=== PATIENT | female | born 1970 | race Caucasian/White ===

== ENCOUNTER 2020-01-31 11:08 | Outpatient (REF) | payer MEDICAID, SELFPAY ==
[2020-01-31 11:58] LABS: Abs Immature Grans 0.08 k/cumm (0.0-0.09); Absolute Basophil Count 0.02 k/cumm (0.0-0.2); Absolute Eosinophil Count 0.05 k/cumm (0.0-0.7); Absolute Lymphocyte Count 1.48 k/cumm (1.2-3.4); Absolute Monocyte Count 0.56 k/cumm (0.11-0.7); Absolute Neutrophil Count 7.74 k/cumm (1.2-6.7); Basophils % 0.2; Eosinophils % 0.5; HCT 45.7 % (36.0-46.0); HGB 15.2 g/dL (12.0-15.5); Immature Grans % 0.8 %; Lymphocytes % 14.9; Mean Corp. HGB Concentration 33.3 g/dL (32.0-36.0); Mean Corpuscular Hemoglobin 31.5 pg (27.0-33.0); Mean Corpuscular Volume 94.6 fL (80-95); Mean Platelet Volume 10.8 fL (8.0-11.0); Monocytes % 5.6; Platelet Count 182 x1000/uL (130-400); RBC 4.83 m/cumm (4.00-5.20); RBC Distribution Width 12.2 % (11.7-14.6); White Blood Cell Count 9.93 k/cumm (4.4-10.8)
== END 2020-01-31 11:28 ==
LOC: LBN 11:08
PROVIDERS: PCP Internal Medicine; Visit Provider Internal Medicine Medical Oncology
DX: C34.91 Malignant neoplasm of unspecified part of right bronchus or lung (principal)
CPT/HCPCS: 85025

== ENCOUNTER 2020-03-13 10:00 | Outpatient (RCR) | payer MEDICAID, SELFPAY ==
[2020-02-21 11:49] LABS: Abs Immature Grans 0.11 k/cumm (0.0-0.09); Absolute Basophil Count 0.02 k/cumm (0.0-0.2); Absolute Eosinophil Count 0.04 k/cumm (0.0-0.7); Absolute Lymphocyte Count 0.97 k/cumm (1.2-3.4); Absolute Monocyte Count 0.66 k/cumm (0.11-0.7); Absolute Neutrophil Count 7.67 k/cumm (1.2-6.7); Basophils % 0.2; Eosinophils % 0.4; HCT 46.9 % (36.0-46.0); HGB 15.2 g/dL (12.0-15.5); Immature Grans % 1.2 %; Lymphocytes % 10.2; Mean Corp. HGB Concentration 32.4 g/dL (32.0-36.0); Mean Corpuscular Hemoglobin 30.7 pg (27.0-33.0); Mean Corpuscular Volume 94.7 fL (80-95); Platelet Count 253 x1000/uL (130-400); RBC 4.95 m/cumm (4.00-5.20); RBC Distribution Width 13.2 % (11.7-14.6); White Blood Cell Count 9.47 k/cumm (4.4-10.8)
[2020-02-21] MEDS: Normal Saline Flush 10 ML SYR IVP (11:55)
[2020-02-21 12:14] LABS: ALT 23 U/L (14-59); AST 14 U/L (15-37); Albumin 3.7 g/dL (3.4-5.0); Alkaline Phosphatase 60 U/L (46-116); BUN 16 mg/dL (7-18); Bilirubin, Total 0.4 mg/dL (0.2-1.0); CREATININE 0.98 mg/dL (0.55-1.02); Chloride 104 mmol/L (98-107); FREE T4 0.92 ng/dL (0.76-1.46); Glucose 148 mg/dL (74-106); Magnesium 1.8 mg/dL (1.8-2.4); Potassium 4.2 mmol/L (3.5-5.1); Sodium 139 mmol/L (136-145); TSH 2.11 uIU/mL (0.36-3.74); Total Protein 7.4 g/dL (6.4-8.2)
[2020-03-13] MEDS: Normal Saline Flush 10 ML SYR IVP (09:51)
[2020-03-13 09:57] LABS: Abs Immature Grans 0.02 k/cumm (0.0-0.09); Absolute Basophil Count 0.01 k/cumm (0.0-0.2); Absolute Eosinophil Count 0.09 k/cumm (0.0-0.7); Absolute Lymphocyte Count 1.71 k/cumm (1.2-3.4); Absolute Monocyte Count 0.92 k/cumm (0.11-0.7); Absolute Neutrophil Count 2.89 k/cumm (1.2-6.7); Basophils % 0.2; Eosinophils % 1.6; HCT 43.6 % (36.0-46.0); HGB 14.3 g/dL (12.0-15.5); Immature Grans % 0.4 %; Lymphocytes % 30.3; Mean Corp. HGB Concentration 32.8 g/dL (32.0-36.0); Mean Corpuscular Hemoglobin 30.5 pg (27.0-33.0); Monocytes % 16.3; Neutrophils % 51.2; Platelet Count 254 x1000/uL (130-400); RBC 4.69 m/cumm (4.00-5.20); RBC Distribution Width 12.8 % (11.7-14.6); White Blood Cell Count 5.64 k/cumm (4.4-10.8)
[2020-03-13 10:28] LABS: ALT 14 U/L (14-59); AST 12 U/L (15-37); Albumin 3.5 g/dL (3.4-5.0); Alkaline Phosphatase 76 U/L (46-116); Anion Gap 7.8 mmol/L (3-11); BUN 9 mg/dL (7-18); Bilirubin, Total 0.3 mg/dL (0.2-1.0); CO2 27.2 mmol/L (21.0-32.0); CREATININE 0.81 mg/dL (0.55-1.02); Calcium 9.1 mg/dL (8.5-10.1); Chloride 103 mmol/L (98-107); FREE T4 0.91 ng/dL (0.76-1.46); Glucose 108 mg/dL (74-106); Potassium 4.3 mmol/L (3.5-5.1); Sodium 138 mmol/L (136-145); TSH 2.32 uIU/mL (0.36-3.74); Total Protein 7.6 g/dL (6.4-8.2)
== END 2020-03-17 23:59 | disposition home or self-care (01) ==
LOC: INF 10:00
PROVIDERS: Nurse Practitioner Adult Health; PCP Internal Medicine; Visit Provider Internal Medicine Medical Oncology
DX: C34.91 Malignant neoplasm of unspecified part of right bronchus or lung (principal); Z45.2 Encounter for adjustment and management of vascular access device
CPT/HCPCS: 36591; 80053; 83735; 84439; 84443; 85025

== ENCOUNTER 2020-04-03 01:29 | Outpatient (RCR) | payer MEDICAID, SELFPAY ==
[2020-04-03] MEDS: Normal Saline Flush 10 ML SYR IVP (11:07)
[2020-04-03 11:14] LABS: Abs Immature Grans 0.04 10^3/uL (0.0-0.06); Absolute Basophil Count 0.04 10^3/uL (0.0-0.2); Absolute Eosinophil Count 0.09 10^3/uL (0.0-0.7); Absolute Neutrophil Count 3.63 10^3/uL (1.2-6.7); Basophils % 0.6; Eosinophils % 1.4; HCT 43.3 % (36.0-46.0); HGB 14.4 g/dL (11.2-15.7); Immature Grans % 0.6; Lymphocytes % 25.8; MCH 30.5 pg (27.0-33.0); MCHC 33.3 % (32.0-36.0); MCV 91.7 fL (80-95); MPV 10.3 fL (8.0-11.0); Monocytes % 16.7; Neutrophils % 54.9; Nucleated RBC 0 %; Platelet Count 237 10^3/uL (130-400); RBC 4.72 10^6/uL (3.93-5.22); RDW 12.9 % (11.7-14.6); RDW-SD 43.7 fL
[2020-04-03 11:35] LABS: ALT 15 U/L (14-59); AST 13 U/L (15-37); Albumin 3.6 g/dL (3.4-5.0); Alkaline Phosphatase 87 U/L (46-116); Anion Gap 8.9 mmol/L (3-11); BUN 10 mg/dL (7-18); Bilirubin, Total 0.3 mg/dL (0.2-1.0); CO2 27.1 mmol/L (21.0-32.0); CREATININE 0.97 mg/dL (0.55-1.02); Calcium 9.1 mg/dL (8.5-10.1); Chloride 102 mmol/L (98-107); FREE T4 0.88 ng/dL (0.76-1.46); Glucose 118 mg/dL (74-106); Magnesium 1.9 mg/dL (1.8-2.4); Potassium 4.3 mmol/L (3.5-5.1); Sodium 138 mmol/L (136-145); Total Protein 7.8 g/dL (6.4-8.2)
== END 2020-04-17 23:59 | disposition home or self-care (01) ==
LOC: INF 01:29
PROVIDERS: PCP Internal Medicine; Visit Provider Internal Medicine Medical Oncology
DX: C34.91 Malignant neoplasm of unspecified part of right bronchus or lung (principal)
CPT/HCPCS: 36591; 80053; 83735; 84439; 84443; 85025

== ENCOUNTER 2020-05-15 02:13 | Outpatient (RCR) | payer MEDICAID, SELFPAY ==
[2020-04-25] MEDS: Normal Saline Flush 10 ML SYR IVP (08:07)
[2020-04-25 08:28] LABS: Abs Immature Grans 0.08 10^3/uL (0.0-0.06); Absolute Basophil Count 0.04 10^3/uL (0.0-0.2); Absolute Eosinophil Count 0.14 10^3/uL (0.0-0.7); Absolute Lymphocyte Count 2.34 10^3/uL (1.2-3.4); Absolute Monocyte Count 1.15 10^3/uL (0.1-0.8); Absolute Neutrophil Count 6.53 10^3/uL (1.2-6.7); Basophils % 0.4; Eosinophils % 1.4; HCT 44.3 % (36.0-46.0); HGB 14.1 g/dL (11.2-15.7); Immature Grans % 0.8; Lymphocytes % 22.8; MCH 30.7 pg (27.0-33.0); MCHC 31.8 % (32.0-36.0); MCV 96.3 fL (80-95); MPV 11.1 fL (8.0-11.0); Monocytes % 11.2; Neutrophils % 63.4; Nucleated RBC 0 %; Platelet Count 155 10^3/uL (130-400); RDW 13.2 % (11.7-14.6); RDW-SD 47.5 fL; WBC 10.28 10^3/uL (4.4-10.8)
[2020-04-25 08:48] LABS: ALT 14 U/L (14-59); AST 5 U/L (15-37); Albumin 3.3 g/dL (3.4-5.0); Alkaline Phosphatase 60 U/L (46-116); Anion Gap 6.7 mmol/L (3-11); BUN 10 mg/dL (7-18); Bilirubin, Total 0.2 mg/dL (0.2-1.0); CO2 28.3 mmol/L (21.0-32.0); CREATININE 0.93 mg/dL (0.55-1.02); Calcium 8.4 mg/dL (8.5-10.1); Chloride 104 mmol/L (98-107); FREE T4 0.88 ng/dL (0.76-1.46); Glucose 160 mg/dL (74-106); Potassium 3.5 mmol/L (3.5-5.1); Sodium 139 mmol/L (136-145); TSH 2.36 uIU/mL (0.36-3.74); Total Protein 6.6 g/dL (6.4-8.2)
[2020-04-25 10:40] LABS: Magnesium 1.9 mg/dL (1.8-2.4)
[2020-05-15] MEDS: Normal Saline Flush 10 ML SYR IVP (08:50)
[2020-05-15 09:15] LABS: Abs Immature Grans 0.18 10^3/uL (0.0-0.06); Absolute Basophil Count 0.05 10^3/uL (0.0-0.2); Absolute Eosinophil Count 0.06 10^3/uL (0.0-0.7); Absolute Lymphocyte Count 1.27 10^3/uL (1.2-3.4); Absolute Monocyte Count 0.74 10^3/uL (0.1-0.8); Absolute Neutrophil Count 6.81 10^3/uL (1.2-6.7); Basophils % 0.5; Eosinophils % 0.7; HCT 47.1 % (36.0-46.0); HGB 15.1 g/dL (11.2-15.7); Lymphocytes % 13.9; MCH 30.6 pg (27.0-33.0); MCHC 32.1 % (32.0-36.0); MCV 95.5 fL (80-95); MPV 10.1 fL (8.0-11.0); Monocytes % 8.1; Neutrophils % 74.8; Nucleated RBC 0 %; Platelet Count 201 10^3/uL (130-400); RBC 4.93 10^6/uL (3.93-5.22); RDW 13.2 % (11.7-14.6); RDW-SD 46.4 fL; WBC 9.11 10^3/uL (4.4-10.8)
[2020-05-15 09:58] LABS: ALT 18 U/L (14-59); AST 11 U/L (15-37); Albumin 3.5 g/dL (3.4-5.0); Alkaline Phosphatase 52 U/L (46-116); Anion Gap 7.4 mmol/L (3-11); BUN 15 mg/dL (7-18); Bilirubin, Total 0.4 mg/dL (0.2-1.0); CO2 28.6 mmol/L (21.0-32.0); CREATININE 0.93 mg/dL (0.55-1.02); Calcium 9.3 mg/dL (8.5-10.1); Chloride 103 mmol/L (98-107); FREE T4 0.93 ng/dL (0.76-1.46); Glucose 130 mg/dL (74-106); Potassium 4.3 mmol/L (3.5-5.1); Sodium 139 mmol/L (136-145); TSH 2.08 uIU/mL (0.36-3.74); Total Protein 6.9 g/dL (6.4-8.2)
== END 2020-05-17 23:59 | disposition home or self-care (01) ==
LOC: INF 02:13
PROVIDERS: PCP Internal Medicine; Visit Provider Internal Medicine Medical Oncology
DX: C34.11 Malignant neoplasm of upper lobe, right bronchus or lung; Z45.2 Encounter for adjustment and management of vascular access device
CPT/HCPCS: 36591; 80053; 83735; 84439; 84443; 85025

== ENCOUNTER 2020-06-05 01:59 | Outpatient (RCR) | payer MEDICAID, SELFPAY ==
[2020-06-05] MEDS: Normal Saline Flush 10 ML SYR IVP (10:39)
[2020-06-05 10:53] LABS: Abs Immature Grans 0.05 10^3/uL (0.0-0.06); Absolute Basophil Count 0.05 10^3/uL (0.0-0.2); Absolute Eosinophil Count 0.11 10^3/uL (0.0-0.7); Absolute Lymphocyte Count 1.88 10^3/uL (1.2-3.4); Absolute Monocyte Count 1.02 10^3/uL (0.1-0.8); Absolute Neutrophil Count 2.85 10^3/uL (1.2-6.7); Basophils % 0.8; Eosinophils % 1.8; HCT 43.7 % (36.0-46.0); HGB 14.3 g/dL (11.2-15.7); Immature Grans % 0.8; Lymphocytes % 31.5; MCH 30.6 pg (27.0-33.0); MCHC 32.7 % (32.0-36.0); MCV 93.4 fL (80-95); MPV 10.2 fL (8.0-11.0); Monocytes % 17.1; Nucleated RBC 0 %; Platelet Count 248 10^3/uL (130-400); RBC 4.68 10^6/uL (3.93-5.22); RDW 12.9 % (11.7-14.6); RDW-SD 43.8 fL; WBC 5.96 10^3/uL (4.4-10.8)
[2020-06-05 11:21] LABS: ALT 13 U/L (14-59); AST 14 U/L (15-37); Albumin 3.4 g/dL (3.4-5.0); Alkaline Phosphatase 83 U/L (46-116); Anion Gap 7.7 mmol/L (3-11); BUN 10 mg/dL (7-18); Bilirubin, Total 0.3 mg/dL (0.2-1.0); CO2 25.3 mmol/L (21.0-32.0); CREATININE 0.94 mg/dL (0.55-1.02); Calcium 8.9 mg/dL (8.5-10.1); Chloride 104 mmol/L (98-107); FREE T4 0.79 ng/dL (0.76-1.46); Glucose 128 mg/dL (74-106); Potassium 4.3 mmol/L (3.5-5.1); Sodium 137 mmol/L (136-145); TSH 2.84 uIU/mL (0.36-3.74)
== END 2020-06-17 23:59 | disposition home or self-care (01) ==
LOC: INF 01:59
PROVIDERS: PCP Internal Medicine; Visit Provider Internal Medicine Medical Oncology
DX: C34.11 Malignant neoplasm of upper lobe, right bronchus or lung
CPT/HCPCS: 36591; 80053; 84439; 84443; 85025

== ENCOUNTER 2020-07-17 02:07 | Outpatient (RCR) | payer MEDICAID, SELFPAY ==
[2020-06-26 08:20] LABS: Abs Immature Grans 0.17 10^3/uL (0.0-0.06); Absolute Basophil Count 0.04 10^3/uL (0.0-0.2); Absolute Eosinophil Count 0.08 10^3/uL (0.0-0.7); Absolute Lymphocyte Count 1.58 10^3/uL (1.2-3.4); Absolute Monocyte Count 1.09 10^3/uL (0.1-0.8); Absolute Neutrophil Count 6.18 10^3/uL (1.2-6.7); Basophils % 0.4; Eosinophils % 0.9; HCT 44.1 % (36.0-46.0); HGB 14.3 g/dL (11.2-15.7); Immature Grans % 1.9; Lymphocytes % 17.3; MCH 30.8 pg (27.0-33.0); MCHC 32.4 % (32.0-36.0); MCV 94.8 fL (80-95); MPV 10.6 fL (8.0-11.0); Monocytes % 11.9; Neutrophils % 67.6; Nucleated RBC 0 %; Platelet Count 181 10^3/uL (130-400); RBC 4.65 10^6/uL (3.93-5.22); RDW 13.4 % (11.7-14.6); RDW-SD 46.6 fL; WBC 9.14 10^3/uL (4.4-10.8)
[2020-06-26] MEDS: Normal Saline Flush 10 ML SYR IVP (08:42)
[2020-06-26 08:47] LABS: ALT 16 U/L (14-59); AST 7 U/L (15-37); Albumin 3.4 g/dL (3.4-5.0); Alkaline Phosphatase 53 U/L (46-116); Anion Gap 7.5 mmol/L (3-11); BUN 10 mg/dL (7-18); Bilirubin, Total 0.3 mg/dL (0.2-1.0); CO2 28.5 mmol/L (21.0-32.0); CREATININE 0.79 mg/dL (0.55-1.02); Chloride 104 mmol/L (98-107); FREE T4 0.83 ng/dL (0.76-1.46); Glucose 138 mg/dL (74-106); Sodium 140 mmol/L (136-145); TSH 3.76 uIU/mL (0.36-3.74); Total Protein 6.9 g/dL (6.4-8.2)
[2020-07-17] MEDS: Normal Saline Flush 10 ML SYR IVP (08:05)
[2020-07-17 08:37] LABS: Abs Immature Grans 0.12 10^3/uL (0.0-0.06); Absolute Basophil Count 0.06 10^3/uL (0.0-0.2); Absolute Eosinophil Count 0.11 10^3/uL (0.0-0.7); Absolute Lymphocyte Count 1.87 10^3/uL (1.2-3.4); Absolute Monocyte Count 1.14 10^3/uL (0.1-0.8); Absolute Neutrophil Count 5.58 10^3/uL (1.2-6.7); Basophils % 0.7; Eosinophils % 1.2; HCT 45.2 % (36.0-46.0); HGB 14.7 g/dL (11.2-15.7); Immature Grans % 1.4; Lymphocytes % 21.1; MCH 30.8 pg (27.0-33.0); MCHC 32.5 % (32.0-36.0); MCV 94.6 fL (80-95); MPV 10.5 fL (8.0-11.0); Monocytes % 12.8; Neutrophils % 62.8; Nucleated RBC 0 %; Platelet Count 243 10^3/uL (130-400); RBC 4.78 10^6/uL (3.93-5.22); RDW 13.2 % (11.7-14.6); RDW-SD 45.2 fL; WBC 8.88 10^3/uL (4.4-10.8)
[2020-07-17 09:03] LABS: ALT 16 U/L (14-59); AST 11 U/L (15-37); Albumin 3.5 g/dL (3.4-5.0); Alkaline Phosphatase 66 U/L (46-116); Anion Gap 7.2 mmol/L (3-11); BUN 11 mg/dL (7-18); Bilirubin, Total 0.3 mg/dL (0.2-1.0); CO2 28.8 mmol/L (21.0-32.0); CREATININE 0.95 mg/dL (0.55-1.02); Calcium 8.9 mg/dL (8.5-10.1); Chloride 105 mmol/L (98-107); FREE T4 0.95 ng/dL (0.76-1.46); Glucose 106 mg/dL (74-106); Potassium 3.4 mmol/L (3.5-5.1); Sodium 141 mmol/L (136-145); TSH 3.28 uIU/mL (0.36-3.74); Total Protein 7.5 g/dL (6.4-8.2)
== END 2020-07-17 23:59 | disposition home or self-care (01) ==
LOC: INF 02:07
PROVIDERS: PCP Internal Medicine; Visit Provider Internal Medicine Medical Oncology
DX: C34.11 Malignant neoplasm of upper lobe, right bronchus or lung (principal); C78.01 Secondary malignant neoplasm of right lung; Z45.2 Encounter for adjustment and management of vascular access device
CPT/HCPCS: 36591; 80053; 84439; 84443; 85025

== ENCOUNTER 2020-08-07 02:00 | Outpatient (RCR) | payer MEDICAID, SELFPAY ==
[2020-08-07] MEDS: Normal Saline Flush 10 ML SYR IVP (12:06)
[2020-08-07 12:24] LABS: Absolute Basophil Count 0.06 10^3/uL (0.0-0.2); Absolute Eosinophil Count 0.06 10^3/uL (0.0-0.7); Absolute Lymphocyte Count 1.14 10^3/uL (1.2-3.4); Absolute Monocyte Count 0.67 10^3/uL (0.1-0.8); Basophils % 0.5; Eosinophils % 0.5; HCT 47.4 % (36.0-46.0); HGB 15.2 g/dL (11.2-15.7); Immature Grans % 1.7; Lymphocytes % 9.5; MCHC 32.1 % (32.0-36.0); MCV 96.5 fL (80-95); MPV 10.4 fL (8.0-11.0); Monocytes % 5.6; Neutrophils % 82.2; Nucleated RBC 0 %; Platelet Count 235 10^3/uL (130-400); RBC 4.91 10^6/uL (3.93-5.22); RDW 13.4 % (11.7-14.6); RDW-SD 48.1 fL; WBC 12.04 10^3/uL (4.4-10.8)
[2020-08-07 13:02] LABS: ALT 27 U/L (14-59); AST 17 U/L (15-37); Albumin 3.8 g/dL (3.4-5.0); Alkaline Phosphatase 52 U/L (46-116); Anion Gap 9.5 mmol/L (3-11); BUN 16 mg/dL (7-18); Bilirubin, Total 0.4 mg/dL (0.2-1.0); CO2 25.5 mmol/L (21.0-32.0); Calcium 8.9 mg/dL (8.5-10.1); Chloride 102 mmol/L (98-107); Estimated GFR 58.93 (mL/min/1.73m2); Glucose 146 mg/dL (74-106); Potassium 4.3 mmol/L (3.5-5.1); Sodium 137 mmol/L (136-145); TSH 1.63 uIU/mL (0.36-3.74); Total Protein 7.3 g/dL (6.4-8.2)
== END 2020-08-17 23:59 | disposition home or self-care (01) ==
LOC: INF 02:00
PROVIDERS: PCP Internal Medicine; Visit Provider Internal Medicine Medical Oncology
DX: C34.91 Malignant neoplasm of unspecified part of right bronchus or lung (principal)
CPT/HCPCS: 36591; 80053; 84439; 84443; 85025

== ENCOUNTER 2020-08-28 15:01 | Outpatient (RCR) | payer MEDICAID, SELFPAY ==
[2020-08-28] MEDS: Heparin 500 UNITS/5 ML SYRINGE (15:12)
[2020-08-28] MEDS: Normal Saline Flush 10 ML SYR 30 ML IVP (15:14)
[2020-08-28 15:22] LABS: Abs Immature Grans 0.08 10^3/uL (0.0-0.06); Absolute Basophil Count 0.06 10^3/uL (0.0-0.2); Absolute Eosinophil Count 0.01 10^3/uL (0.0-0.7); Absolute Lymphocyte Count 0.81 10^3/uL (1.2-3.4); Absolute Monocyte Count 0.38 10^3/uL (0.1-0.8); Basophils % 0.5; Eosinophils % 0.1; HCT 48.1 % (36.0-46.0); HGB 15.5 g/dL (11.2-15.7); Immature Grans % 0.7; Lymphocytes % 7.3; MCH 30.6 pg (27.0-33.0); MCHC 32.2 % (32.0-36.0); MCV 95.1 fL (80-95); MPV 10.4 fL (8.0-11.0); Monocytes % 3.4; Nucleated RBC 0 %; Platelet Count 237 10^3/uL (130-400); RBC 5.06 10^6/uL (3.93-5.22); RDW 12.8 % (11.7-14.6); WBC 11.06 10^3/uL (4.4-10.8)
[2020-08-28 15:23] LABS: Absolute Neutrophil Count 9.73 10^3/uL (1.2-6.7)
[2020-08-28 15:45] LABS: ALT 27 U/L (14-59); AST 16 U/L (15-37); Alkaline Phosphatase 54 U/L (46-116); Anion Gap 8.4 mmol/L (3-11); BUN 12 mg/dL (7-18); Bilirubin, Total 0.3 mg/dL (0.2-1.0); CO2 27.6 mmol/L (21.0-32.0); CREATININE 0.97 mg/dL (0.55-1.02); Calcium 9.1 mg/dL (8.5-10.1); Chloride 101 mmol/L (98-107); FREE T4 0.85 ng/dL (0.76-1.46); Glucose 130 mg/dL (74-106); Potassium 3.7 mmol/L (3.5-5.1); Sodium 137 mmol/L (136-145); TSH 1.59 uIU/mL (0.36-3.74); Total Protein 7.7 g/dL (6.4-8.2)
== END 2020-09-17 23:59 | disposition home or self-care (01) ==
LOC: INF 15:01
PROVIDERS: PCP Internal Medicine; Visit Provider Internal Medicine Medical Oncology
DX: C34.11 Malignant neoplasm of upper lobe, right bronchus or lung (principal); Z45.2 Encounter for adjustment and management of vascular access device
CPT/HCPCS: 36591; 80053; 84439; 84443; 85025

== ENCOUNTER 2020-09-25 02:18 | Outpatient (RCR) | payer MEDICAID, SELFPAY ==
[2020-09-25 09:27] LABS: Absolute Basophil Count 0.09 10^3/uL (0.0-0.2); Absolute Eosinophil Count 0.14 10^3/uL (0.0-0.7); Absolute Lymphocyte Count 1.33 10^3/uL (1.2-3.4); Absolute Neutrophil Count 14.68 10^3/uL (1.2-6.7); Basophils % 0.5; Eosinophils % 0.8; HCT 46.7 % (36.0-46.0); HGB 15.2 g/dL (11.2-15.7); Immature Grans % 1.1; Lymphocytes % 7.6; MCHC 32.5 % (32.0-36.0); MCV 95.3 fL (80-95); MPV 10.7 fL (8.0-11.0); Monocytes % 6.2; Neutrophils % 83.8; Nucleated RBC 0 %; Platelet Count 254 10^3/uL (130-400); RDW 12.7 % (11.7-14.6); RDW-SD 44.9 fL; WBC 17.52 10^3/uL (4.4-10.8)
[2020-09-25 09:28] LABS: Absolute Monocyte Count 1.09 10^3/uL (0.1-0.8)
[2020-09-25] MEDS: Normal Saline Flush 10 ML SYR IVP (09:31)
[2020-09-25 09:49] LABS: ALT 25 U/L (14-59); AST 14 U/L (15-37); Albumin 3.6 g/dL (3.4-5.0); Alkaline Phosphatase 55 U/L (46-116); Anion Gap 9.3 mmol/L (3-11); BUN 12 mg/dL (7-18); Bilirubin, Total 0.5 mg/dL (0.2-1.0); CO2 27.7 mmol/L (21.0-32.0); Chloride 103 mmol/L (98-107); Estimated GFR 58.93 (mL/min/1.73m2); FREE T4 0.98 ng/dL (0.76-1.46); Glucose 147 mg/dL (74-106); Potassium 3.8 mmol/L (3.5-5.1); Sodium 140 mmol/L (136-145); TSH 2.35 uIU/mL (0.36-3.74); Total Protein 7.4 g/dL (6.4-8.2)
== END 2020-10-15 23:59 | disposition home or self-care (01) ==
LOC: INF 02:18
PROVIDERS: PCP Internal Medicine; Visit Provider Internal Medicine Medical Oncology
DX: C78.01 Secondary malignant neoplasm of right lung (principal); C34.11 Malignant neoplasm of upper lobe, right bronchus or lung
CPT/HCPCS: 36591; 80053; 84439; 84443; 85025

== ENCOUNTER 2020-11-06 02:58 | Outpatient (RCR) | payer MEDICAID, SELFPAY ==
[2020-10-16] MEDS: Normal Saline Flush 10 ML SYR IVP (09:27)
[2020-10-16 10:13] LABS: Abs Immature Grans 0.46 10^3/uL (0.0-0.06); HCT 48.4 % (36.0-46.0); HGB 16.1 g/dL (11.2-15.7); MCH 30.9 pg (27.0-33.0); MCHC 33.3 % (32.0-36.0); MCV 92.9 fL (80-95); MPV 11.2 fL (8.0-11.0); Nucleated RBC 0 %; Platelet Count 284 10^3/uL (130-400); RBC 5.21 10^6/uL (3.93-5.22); RDW 12.4 % (11.7-14.6); WBC 22.47 10^3/uL (4.4-10.8)
[2020-10-16 10:30] LABS: ALT 26 U/L (14-59); AST 19 U/L (15-37); Alkaline Phosphatase 69 U/L (46-116); Anion Gap 7.9 mmol/L (3-11); BUN 14 mg/dL (7-18); Bilirubin, Total 1.1 mg/dL (0.2-1.0); CO2 30.1 mmol/L (21.0-32.0); Calcium 8.8 mg/dL (8.5-10.1); Chloride 98 mmol/L (98-107); Estimated GFR 58.93 (mL/min/1.73m2); FREE T4 1.08 ng/dL (0.76-1.46); Glucose 153 mg/dL (74-106); Potassium 3.2 mmol/L (3.5-5.1); Sodium 136 mmol/L (136-145); TSH 1.48 uIU/mL (0.36-3.74); Total Protein 7.1 g/dL (6.4-8.2)
[2020-10-16 10:34] LABS: Absolute Basophil Count 0.22 10^3/uL (0.0-0.2); Absolute Eosinophil Count 0.67 10^3/uL (0.0-0.7); Absolute Lymphocyte Count 2.02 10^3/uL (1.2-3.4); Absolute Neutrophil Count 16.85 10^3/uL (1.2-6.7); Bands % 2; Diff Comment Manual Differential; Polychromasia Present
[2020-11-06] MEDS: Normal Saline Flush 10 ML SYR IVP (09:16)
[2020-11-06 09:24] LABS: HCT 50.3 % (36.0-46.0); HGB 16.2 g/dL (11.2-15.7); MCH 30.2 pg (27.0-33.0); MCHC 32.2 % (32.0-36.0); MCV 93.8 fL (80-95); MPV 10.1 fL (8.0-11.0); Nucleated RBC 0 %; RBC 5.36 10^6/uL (3.93-5.22); RDW 12.8 % (11.7-14.6); RDW-SD 43.9 fL; WBC 23.24 10^3/uL (4.4-10.8)
[2020-11-06 09:50] LABS: ALT 25 U/L (14-59); AST 5 U/L (15-37); Albumin 3.4 g/dL (3.4-5.0); Alkaline Phosphatase 58 U/L (46-116); BUN 13 mg/dL (7-18); Bilirubin, Total 0.3 mg/dL (0.2-1.0); CREATININE 0.9 mg/dL (0.55-1.02); Calcium 9.1 mg/dL (8.5-10.1); Chloride 100 mmol/L (98-107); FREE T4 0.76 ng/dL (0.76-1.46); Glucose 133 mg/dL (74-106); Potassium 3.5 mmol/L (3.5-5.1); Sodium 139 mmol/L (136-145); TSH 6.64 uIU/mL (0.36-3.74); Total Protein 7.3 g/dL (6.4-8.2)
[2020-11-06 09:59] LABS: Absolute Lymphocyte Count 4.18 10^3/uL (1.2-3.4); Absolute Monocyte Count 1.86 10^3/uL (0.1-0.8); Atypical Lymphocytes % 2; Bands % 1; Diff Comment Manual Differential; Metamyelocytes % 2; Myelocytes % 1; RBC Morphology Normal
[2020-11-06 10:00] LABS: Platelet Count 243 10^3/uL (130-400)
== END 2020-11-15 23:59 | disposition home or self-care (01) ==
LOC: INF 02:58
PROVIDERS: PCP Internal Medicine; Visit Provider Internal Medicine Medical Oncology
DX: C34.11 Malignant neoplasm of upper lobe, right bronchus or lung (principal); Z79.899 Other long term (current) drug therapy; Z45.2 Encounter for adjustment and management of vascular access device
CPT/HCPCS: 36591; 80053; 84439; 84443; 85025

== ENCOUNTER 2020-12-11 03:18 | Outpatient (RCR) | payer MEDICAID, SELFPAY ==
[2020-11-20 09:32] LABS: Abs Immature Grans 0.22 10^3/uL (0.0-0.06); Absolute Lymphocyte Count 2.63 10^3/uL (1.2-3.4); Absolute Monocyte Count 1.29 10^3/uL (0.1-0.8); Absolute Neutrophil Count 7.88 10^3/uL (1.2-6.7); Basophils % 0.8; Eosinophils % 1.5; HCT 46.3 % (36.0-46.0); HGB 15.3 g/dL (11.2-15.7); Immature Grans % 1.8; Lymphocytes % 21.4; MCH 30.5 pg (27.0-33.0); MCV 92.4 fL (80-95); MPV 10.6 fL (8.0-11.0); Monocytes % 10.5; Nucleated RBC 0 %; Platelet Count 192 10^3/uL (130-400); RBC 5.01 10^6/uL (3.93-5.22); RDW 12.5 % (11.7-14.6); RDW-SD 42.4 fL; WBC 12.31 10^3/uL (4.4-10.8)
[2020-11-20 09:34] LABS: Absolute Eosinophil Count 0.18 10^3/uL (0.0-0.7)
[2020-11-20 09:46] LABS: ALT 26 U/L (14-59); AST 11 U/L (15-37); Albumin 3.3 g/dL (3.4-5.0); Alkaline Phosphatase 64 U/L (46-116); Anion Gap 11.5 mmol/L (3-11); BUN 13 mg/dL (7-18); Bilirubin, Total 0.7 mg/dL (0.2-1.0); CO2 30.5 mmol/L (21.0-32.0); Calcium 9.1 mg/dL (8.5-10.1); Chloride 97 mmol/L (98-107); Estimated GFR 58.93 (mL/min/1.73m2); Glucose 149 mg/dL (74-106); Sodium 139 mmol/L (136-145); Total Protein 7.5 g/dL (6.4-8.2)
[2020-11-20] MEDS: Normal Saline Flush 10 ML SYR IVP (10:15)
[2020-12-11] MEDS: Normal Saline Flush 10 ML SYR IVP (12:12)
[2020-12-11 12:23] LABS: Abs Immature Grans 0.76 10^3/uL (0.0-0.06); HCT 46.7 % (36.0-46.0); MCH 30.6 pg (27.0-33.0); MCHC 32.1 % (32.0-36.0); MCV 95.3 fL (80-95); MPV 10.3 fL (8.0-11.0); Nucleated RBC 0 %; Platelet Count 290 10^3/uL (130-400); RDW 13.8 % (11.7-14.6); RDW-SD 48.3 fL; WBC 16.73 10^3/uL (4.4-10.8)
[2020-12-11 12:34] LABS: Absolute Eosinophil Count 0.17 10^3/uL (0.0-0.7); Absolute Lymphocyte Count 2.17 10^3/uL (1.2-3.4); Absolute Monocyte Count 1.67 10^3/uL (0.1-0.8); Absolute Neutrophil Count 12.21 10^3/uL (1.2-6.7); Atypical Lymphocytes % 4
[2020-12-11 12:35] LABS: Diff Comment Manual Differential; Metamyelocytes % 2; Myelocytes % 1; RBC Morphology Normal
[2020-12-11 12:45] LABS: ALT 19 U/L (14-59); AST 5 U/L (15-37); Albumin 3.2 g/dL (3.4-5.0); Alkaline Phosphatase 53 U/L (46-116); Anion Gap 6.1 mmol/L (3-11); BUN 13 mg/dL (7-18); Bilirubin, Total 0.2 mg/dL (0.2-1.0); CO2 31.9 mmol/L (21.0-32.0); CREATININE 0.9 mg/dL (0.55-1.02); Chloride 102 mmol/L (98-107); Glucose 173 mg/dL (74-106); Potassium 3.8 mmol/L (3.5-5.1); Sodium 140 mmol/L (136-145); TSH 2.28 uIU/mL (0.36-3.74); Total Protein 6.9 g/dL (6.4-8.2)
== END 2020-12-15 23:59 | disposition home or self-care (01) ==
LOC: INF 03:18
PROVIDERS: PCP Internal Medicine; Visit Provider Internal Medicine Medical Oncology
DX: C34.11 Malignant neoplasm of upper lobe, right bronchus or lung (principal); Z79.899 Other long term (current) drug therapy; Z45.2 Encounter for adjustment and management of vascular access device
CPT/HCPCS: 36591; 80053; 84439; 84443; 85025

== ENCOUNTER 2021-01-01 02:41 | Outpatient (RCR) | payer MEDICAID, SELFPAY ==
[2021-01-01] MEDS: Normal Saline Flush 10 ML SYR IVP (12:17)
[2021-01-01 12:23] LABS: Abs Immature Grans 0.62 10^3/uL (0.0-0.06); Absolute Lymphocyte Count 0.91 10^3/uL (1.2-3.4); Absolute Monocyte Count 1.04 10^3/uL (0.1-0.8); Basophils % 0.6; Eosinophils % 0.5; HCT 47.2 % (36.0-46.0); HGB 15.2 g/dL (11.2-15.7); Lymphocytes % 4.4; MCH 30.8 pg (27.0-33.0); MCHC 32.2 % (32.0-36.0); MCV 95.5 fL (80-95); MPV 10.5 fL (8.0-11.0); Neutrophils % 86.5; Nucleated RBC 0 %; Platelet Count 196 10^3/uL (130-400); RBC 4.94 10^6/uL (3.93-5.22); RDW 14.1 % (11.7-14.6); RDW-SD 49.3 fL; WBC 20.74 10^3/uL (4.4-10.8)
[2021-01-01 12:44] LABS: Absolute Basophil Count 0.12 10^3/uL (0.0-0.2); Absolute Neutrophil Count 17.94 10^3/uL (1.2-6.7); Diff Comment Agrees w/ Instrument
[2021-01-01 12:45] LABS: Stomatocytes 2+
[2021-01-01 12:49] LABS: ALT 38 U/L (14-59); AST 16 U/L (15-37); Albumin 3.5 g/dL (3.4-5.0); Alkaline Phosphatase 51 U/L (46-116); Anion Gap 6.6 mmol/L (3-11); BUN 9 mg/dL (7-18); Bilirubin, Total 0.4 mg/dL (0.2-1.0); CO2 32.4 mmol/L (21.0-32.0); Calcium 9.1 mg/dL (8.5-10.1); Chloride 100 mmol/L (98-107); Estimated GFR 58.93 (mL/min/1.73m2); FREE T4 0.99 ng/dL (0.76-1.46); Glucose 232 mg/dL (74-106); Potassium 4.1 mmol/L (3.5-5.1); Sodium 139 mmol/L (136-145); TSH 1.51 uIU/mL (0.36-3.74)
== END 2021-01-15 23:59 | disposition home or self-care (01) ==
LOC: INF 02:41
PROVIDERS: Internal Medicine; PCP Internal Medicine; Visit Provider Internal Medicine Medical Oncology
DX: R73.9 Hyperglycemia, unspecified (principal); C34.11 Malignant neoplasm of upper lobe, right bronchus or lung; Z79.899 Other long term (current) drug therapy; Z45.2 Encounter for adjustment and management of vascular access device
CPT/HCPCS: 36591; 80053; 83036; 84439; 84443; 85025

== ENCOUNTER 2021-02-12 02:50 | Outpatient (RCR) | payer MEDICAID, SELFPAY ==
[2021-02-12 12:28] LABS: Abs Immature Grans 0.44 10^3/uL (0.0-0.06); Absolute Eosinophil Count 0.09 10^3/uL (0.0-0.7); Absolute Monocyte Count 1.05 10^3/uL (0.1-0.8); Absolute Neutrophil Count 14.65 10^3/uL (1.2-6.7); Basophils % 0.6; Eosinophils % 0.5; HCT 46.9 % (36.0-46.0); Immature Grans % 2.5; Lymphocytes % 6.3; MCH 30.1 pg (27.0-33.0); MCV 94.2 fL (80-95); MPV 10.4 fL (8.0-11.0); Neutrophils % 84.1; Nucleated RBC 0 %; Platelet Count 205 10^3/uL (130-400); RBC 4.98 10^6/uL (3.93-5.22); RDW-SD 44.8 fL; WBC 17.42 10^3/uL (4.4-10.8)
[2021-02-12] MEDS: Normal Saline Flush 10 ML SYR IVP (12:40)
[2021-02-12 13:06] LABS: ALT 22 U/L (14-59); AST 11 U/L (15-37); Albumin 3.6 g/dL (3.4-5.0); Alkaline Phosphatase 44 U/L (46-116); Anion Gap 11.1 mmol/L (3-11); BUN 8 mg/dL (7-18); Bilirubin, Total 0.4 mg/dL (0.2-1.0); CO2 27.9 mmol/L (21.0-32.0); Chloride 102 mmol/L (98-107); Estimated GFR 58.93 (mL/min/1.73m2); FREE T4 0.94 ng/dL (0.76-1.46); Glucose 184 mg/dL (74-106); Potassium 4.1 mmol/L (3.5-5.1); Sodium 141 mmol/L (136-145); TSH 1.21 uIU/mL (0.36-3.74); Total Protein 7.1 g/dL (6.4-8.2)
== END 2021-02-14 23:59 | disposition home or self-care (01) ==
LOC: INF 02:50
PROVIDERS: PCP Internal Medicine; Visit Provider Internal Medicine Medical Oncology
DX: C34.11 Malignant neoplasm of upper lobe, right bronchus or lung (principal); Z79.899 Other long term (current) drug therapy; Z45.2 Encounter for adjustment and management of vascular access device
CPT/HCPCS: 36591; 80053; 84439; 84443; 85025

== ENCOUNTER 2021-03-05 02:14 | Outpatient (RCR) | payer MEDICAID, SELFPAY ==
[2021-03-05] MEDS: Normal Saline Flush 10 ML SYR IVP (13:13)
[2021-03-05 13:28] LABS: Abs Immature Grans 0.62 10^3/uL (0.0-0.06); HCT 48.2 % (36.0-46.0); HGB 15.4 g/dL (11.2-15.7); MCH 30.4 pg (27.0-33.0); MCV 95.3 fL (80-95); MPV 10.1 fL (8.0-11.0); Nucleated RBC 0 %; RBC 5.06 10^6/uL (3.93-5.22); RDW 13.9 % (11.7-14.6); RDW-SD 48.3 fL; WBC 20.29 10^3/uL (4.4-10.8)
[2021-03-05 13:52] LABS: ALT 24 U/L (14-59); AST 10 U/L (15-37); Albumin 3.6 g/dL (3.4-5.0); Alkaline Phosphatase 53 U/L (46-116); Anion Gap 10.9 mmol/L (3-11); BUN 14 mg/dL (7-18); Bilirubin, Total 0.4 mg/dL (0.2-1.0); CO2 27.1 mmol/L (21.0-32.0); Chloride 102 mmol/L (98-107); Estimated GFR 58.93 (mL/min/1.73m2); FREE T4 1.18 ng/dL (0.76-1.46); Glucose 197 mg/dL (74-106); Sodium 140 mmol/L (136-145); Total Protein 7.2 g/dL (6.4-8.2)
[2021-03-05 13:53] LABS: Absolute Lymphocyte Count 1.22 10^3/uL (1.2-3.4); Absolute Monocyte Count 1.62 10^3/uL (0.1-0.8); Absolute Neutrophil Count 17.04 10^3/uL (1.2-6.7); Bands % 4
[2021-03-05 13:54] LABS: Diff Comment Manual Differential; Myelocytes % 1; Polychromasia Present
[2021-03-05 13:55] LABS: Platelet Count 302 10^3/uL (130-400)
== END 2021-03-17 23:59 | disposition home or self-care (01) ==
LOC: INF 02:14
PROVIDERS: PCP Internal Medicine; Visit Provider Internal Medicine Medical Oncology
DX: C34.11 Malignant neoplasm of upper lobe, right bronchus or lung (principal); Z79.899 Other long term (current) drug therapy; Z45.2 Encounter for adjustment and management of vascular access device
CPT/HCPCS: 36591; 80053; 84439; 84443; 85025

== ENCOUNTER 2021-04-16 02:50 | Outpatient (RCR) | payer MEDICAID, SELFPAY ==
[2021-03-26 08:53] LABS: Abs Immature Grans 0.63 10^3/uL (0.0-0.06); Absolute Eosinophil Count 0.12 10^3/uL (0.0-0.7); Basophils % 0.8; Eosinophils % 0.7; HCT 46.3 % (36.0-46.0); HGB 14.9 g/dL (11.2-15.7); Immature Grans % 3.8; Lymphocytes % 13.5; MCH 30.1 pg (27.0-33.0); MCHC 32.2 % (32.0-36.0); MCV 93.5 fL (80-95); Monocytes % 8.6; Neutrophils % 72.6; Nucleated RBC 0 %; Platelet Count 262 10^3/uL (130-400); RBC 4.95 10^6/uL (3.93-5.22); RDW 14.2 % (11.7-14.6); RDW-SD 48.7 fL; WBC 16.77 10^3/uL (4.4-10.8)
[2021-03-26 08:54] LABS: Absolute Basophil Count 0.13 10^3/uL (0.0-0.2); Absolute Lymphocyte Count 2.26 10^3/uL (1.2-3.4); Absolute Monocyte Count 1.44 10^3/uL (0.1-0.8); Absolute Neutrophil Count 12.18 10^3/uL (1.2-6.7)
[2021-03-26 09:08] LABS: Diff Comment Agrees w/ Instrument; RBC Morphology Normal
[2021-03-26 09:20] LABS: ALT 22 U/L (14-59); AST 7 U/L (15-37); Albumin 3.4 g/dL (3.4-5.0); Alkaline Phosphatase 43 U/L (46-116); Anion Gap 7.9 mmol/L (3-11); BUN 10 mg/dL (7-18); Bilirubin, Total 0.3 mg/dL (0.2-1.0); CO2 29.1 mmol/L (21.0-32.0); CREATININE 0.9 mg/dL (0.55-1.02); Calcium 8.6 mg/dL (8.5-10.1); Chloride 103 mmol/L (98-107); FREE T4 1.08 ng/dL (0.76-1.46); Glucose 133 mg/dL (74-106); Potassium 3.4 mmol/L (3.5-5.1); Sodium 140 mmol/L (136-145); TSH 1.94 uIU/mL (0.36-3.74); Total Protein 6.7 g/dL (6.4-8.2)
[2021-03-26] MEDS: Normal Saline Flush 10 ML SYR IVP (09:23)
[2021-04-16] MEDS: Normal Saline Flush 10 ML SYR IVP (13:19)
[2021-04-16 13:32] LABS: HCT 50.3 % (36.0-46.0); HGB 15.6 g/dL (11.2-15.7); MCH 30.1 pg (27.0-33.0); MCV 97.1 fL (80-95); MPV 10.4 fL (8.0-11.0); Nucleated RBC 0 %; RBC 5.18 10^6/uL (3.93-5.22); RDW 14.6 % (11.7-14.6); RDW-SD 52.1 fL; WBC 13.72 10^3/uL (4.4-10.8)
[2021-04-16 13:54] LABS: ALT 32 U/L (14-59); AST 14 U/L (15-37); Albumin 3.7 g/dL (3.4-5.0); Alkaline Phosphatase 59 U/L (46-116); Anion Gap 15.3 mmol/L (3-11); BUN 10 mg/dL (7-18); Bilirubin, Total 0.2 mg/dL (0.2-1.0); CO2 24.7 mmol/L (21.0-32.0); CREATININE 1.3 mg/dL (0.55-1.02); Calcium 9.6 mg/dL (8.5-10.1); Chloride 100 mmol/L (98-107); Estimated GFR 43.54 (mL/min/1.73m2); Glucose 247 mg/dL (74-106); Potassium 4.3 mmol/L (3.5-5.1); Sodium 140 mmol/L (136-145); TSH 0.62 uIU/mL (0.36-3.74); Total Protein 7.5 g/dL (6.4-8.2)
[2021-04-16 13:55] LABS: Absolute Lymphocyte Count 2.06 10^3/uL (1.2-3.4); Absolute Monocyte Count 0.96 10^3/uL (0.1-0.8); Absolute Neutrophil Count 10.15 10^3/uL (1.2-6.7); Bands % 4; Platelet Count 381 10^3/uL (130-400)
[2021-04-16 13:56] LABS: Diff Comment Manual Differential; Metamyelocytes % 4; RBC Morphology Normal
[2021-04-16 14:13] LABS: FREE T4 0.97 ng/dL (0.76-1.46)
== END 2021-04-17 23:59 | disposition home or self-care (01) ==
LOC: INF 02:50
PROVIDERS: PCP Internal Medicine; Visit Provider Internal Medicine Medical Oncology
DX: C34.11 Malignant neoplasm of upper lobe, right bronchus or lung (principal); Z79.899 Other long term (current) drug therapy; Z45.2 Encounter for adjustment and management of vascular access device
CPT/HCPCS: 36415; 36591; 80053; 84439; 84443; 85025

== ENCOUNTER 2021-05-07 03:26 | Outpatient (RCR) | payer MEDICAID, SELFPAY ==
--- OUTSIDE RECORDS SUMMARY | 2021-05-07 03:29 | XMS_ITS ---
:1970 Author Care Team Providers Name Role Phone ERICK RED MD Radiation Oncologist [phone] VITOR FLEMING MD Primary Care Provider [phone] ZOYA WEBB MD Insurance Marketing Rep [phone] TRENT YEH MD Medical Oncologist [phone] Allergies Code Code System Name Reaction Severity Status Onset Adhesive Tape Itching ? Active ? NKDA ? Medications Name Status Start Date Stop Date ? ? acetaminophen 300 mg-codeine 30 mg tablet Completed 200705/10/2008 2 (two) Tablet: every 4 hrs /prn for headache acetic acid 2 % ear solution Active ? Not available Advair Diskus 500 mcg-50 mcg/dose powder for inhalation Complete d 02/21/2012 02/21/2012 1 (one) Misc: twice daily albuterol sulfate 2.5 mg/3 mL (0.083 %) solution for nebuliz ation Active 01/22/2021 Not available 3 mL every 4 hours by inhalation route as needed. alprazolam 0.5 mg tablet Completed 07/03/2017 017 1 (one) Tablet: twice a day only as needed Ambien 10 mg tablet Completed 10/06/2013 12/24/2013 1 (one) Tablet: qhs - at bedtime amoxicillin 500 mg tablet Completed 12/26/20142014 1 (one) Tablet: four times a day Bactrim DS 800 mg-160 mg tablet Completed ? 12/21/2020 Take 1 tablet 3 times a week by oral route. BD Regular Bevel [place] 18 Completed 04/21/201802/2021 gauge x 1 bupropion HCl XL 150 mg 24 hr tablet, extended release Active ? Not available Take 1 tablet every day by oral route. cephalexin 500 mg capsule Completed ? 2020 Take 1 capsule 3 times a day by oral route for 5 days. ciprofloxacin 500 mg tablet Completed ? 03/18 clarithromycin 500 mg tablet Completed 12/26/2014 1 (one) Tablet: twice a day clobetasol 0.05 % topical cream Completed 05/17/2010 08/08/2010 1 (one) Cream: 2 times a day clonazepam 0.5 mg tablet Completed ? 020 codeine 10 mg-guaifenesin 100 mg/5 mL oral liquid Completed ? 01/22/2021 Take 10 mL 3 times a day by oral route as needed. Combivent 18 mcg-103 mcg/actuation aerosol inhaler Completed 02/09/2013 02/09/2013 2 (two) Aerosol: every 4-6 as needed Combivent Respimat 20 mcg-100 Unknown ? No t available mcg/actuation solution for inhalation cyclobenzaprine 10 mg tablet Active 01/22/2021 Not available Take 1 tablet 3 times a day by oral route as needed for 10 days . cyclobenzaprine 5 mg tablet Active ? Not available Depo-Provera 150 mg/mL intramuscular suspension Completed 05/25/2013 05/25/2013 1 (one) vial: every 11 weeks doxycycline hyclate 100 mg capsule Completed ? 11/22/2020 Take 1 capsule twice a day by oral route for 7 days. Take antibiotic for additional 7 days. doxycycline hyclate 100 mg tablet Completed ? 06/15/2020 Take 1 tablet twice a day by oral route for 7 days. doxycycline monohydrate 100 mg tablet Completed 01/22/2021 02/05/2021 Take 1 tablet twice a day by oral route for 10 days. Dupixent 300 mg/2 mL subcutaneous pen injector Completed ? 04/27/2021 inject 600 mg sc for initial dose, then 300 mg sc every 14 days EpiPen 2-Murray 0.3 mg/0.3 mL injection, auto-injector Active 01/22/2021 Not available Take 1 auto by injection route as directed. erythromycin 5 mg/gram (0.5 %) eye ointment Completed 01/1704/13/2014 1 (one) Ointment Ointment: every eight hours Fasenra 30 mg/mL subcutaneous syringe Active ? Not available Inject 1 mL (30 mg) sc every 28 days fo r 3 months then 1 mL (30 mg) sc every 8 weeks Flagyl 500 mg tablet Completed 09/16/2016 10/01/2016 1 (one) Tablet Tablet: twice daily fluconazole 150 mg tablet Completed ? 2020 1 (one) Tablet every other day x 5 tablets fluconazole 200 mg tablet Completed 10/07/20182018 Take 1 tablet every day by oral route. Take 2 pills on day #1 then 1 pill daily on days #2,3,4 fluoxetine 10 mg capsule Active ? Not duy ilable Take 1 capsule every day by oral route in the morning. fluoxetine 40 mg capsule Active 01/22/2021 Not duy ilable 1 capsule every day by oral route in the evening. fluticasone propionate 50 mcg/actuation nasal spray,suspensi on Active 01/22/2021 Not available [place] 1 spray twice a day by intranasal route as needed. folic acid 1 mg tablet Active 01/22/2021 Not avail able Take 1 tablet every day by oral route for 90 days. Fosamax 70 mg tablet Active 01/22/2021 Not availab le Take 1 tablet every week by oral route for 90 days. gabapentin 100 mg capsule Active ? Not av ailable Take 1 capsule every day by oral route at noon for 90 days. gabapentin 300 mg capsule Completed ? 2017 gabapentin 600 mg tablet Active 01/22/2021 Not duy ilable Take 1 tablet every day by oral route in the evening for 90 day s. hydrochlorothiazide 12.5 mg tablet Completed ? 10/06/2020 Take 1 tablet every day by oral route. hydrochlorothiazide 25 mg tablet Completed ? 01/22/2021 Take 1 tablet every day by oral route. hydrocodone 5 mg-acetaminophen 325 mg tablet Completed 11/201102/04/2012 1 Tablet: every four to sixhours, as needed ipratropium 0.5 mg-albuterol 3 mg (2.5 mg base)/3 mL nebuliz ation soln Active 01/22/2021 Not available Inhale 3 mL 4 times a day by nebulization route for 30 days. Iron (ferrous sulfate) Completed ? 9 1 daily Iron (ferrous sulfate) 325 mg (65 mg iron) tablet Active 01/22/2021 Not available Take 1 tablet every day by oral route. Jardiance 25 mg tablet Active ? Not avail able take one tablet PO daily ketoconazole 2 % topical cream Completed 09/12/2009 0 02/26/2011 1 (one) application(s): twice daily ketorolac 60 mg/2 mL Completed 06/27/2011 06/27/2011 intramuscular solution Klor-Con 20 mEq oral packet Completed 11/20/2020 0602/2021 Take 1 packet twice a day by oral route. levofloxacin 500 mg tablet Completed ? 06/07 1 Tablet: qd - daily levofloxacin 750 mg tablet Completed ? 01/22 Take 1 tablet every day by oral route for 7 days. loratadine 10 mg tablet Active 01/22/2021 Not avai lable Take 1 tablet every day by oral route for 90 days. lorazepam 0.5 mg tablet Active ? Not avai lable Take 1 tablet twice a day by oral route as needed. lorazepam 1 mg tablet Completed 04/10/2020 06/07/2020 Lunesta 2 mg tablet Completed 05/10/2008 05/10/2008 1 (one) Tablet: at bedtime, as needed metformin 1,000 mg tablet Active ? Not av ailable Take 1 tablet twice a day by oral route. metformin 500 mg tablet Completed 01/22/2021 02/17/20 Take 1 tablet every day by oral route. metoprolol succinate ER 25 mg tablet,extended release 24 hr Comp leted ? 01/22/2021 Take 1 tablet every day by oral route. metoprolol succinate ER 50 mg tablet,extended release 24 hr Acti ve 04/19/2021 Not available Take 2 tablets every day by oral route. Mucinex 600 mg tablet, Completed 04/21/2018 9 extended release naproxen sodium ER (CR) 500 mg tablet,extended release 24 hr mphase Completed 12/03/2005 07/01/2006 1 (one) Tab SR 24HR: QD nicotine (polacrilex) 4 mg buccal mini lozenge Completed ? 10/25/[address] 1 lozenge by buccal route. nicotine 21 mg/24 hr daily Completed ? 10/07 transdermal patch nystatin 100,000 unit/mL oral suspension Active 021 Not available Take 5 mL 4 times a day by oral route as needed. omeprazole 20 mg capsule,delayed release Completed ? 06/07/2020 take 1 capsule by mouth once daily omeprazole 40 mg capsule,delayed release Active ? Not available Take 1 capsule every day by oral route for 90 days. ondansetron 4 mg disintegrating tablet Active [address] 2 tablets twice a day by translingual route as needed. ondansetron HCl 8 mg tablet Completed ? 08/20 oxycodone 5 mg tablet Completed ? 08/30/2019 penicillin V potassium 500 mg tablet Completed ? 07/26/2020 Take 1 tablet twice a day by oral route for 10 days. Polytrim 10,000 unit-1 mg/mL eye drops Completed 3 09/09/2012 1 Drop(s): qid - four times a day prednisone 10 mg tablet Completed ? 03/09/20 21 TAKE ONE TABLET DAILY BY MOUTH (IN ADDITION TO 20 MG TABLET, 30 MG TOTAL) prednisone 20 mg tablet Active ? Not avai lable Take 2 tablets (40 mg) by mouth daily prednisone 5 mg tablet Completed ? 0 Prempro 0.3 mg-1.5 mg tablet Completed ? 06/2018 Prempro 0.45 mg-1.5 mg tablet Active 01/22/2021 No t available 1 tablet every day by oral route. ProAir HFA 90 mcg/actuation aerosol inhaler Active 02/2021 Not available 2 puffs every 3 hours by inhalation route as needed. prochlorperazine maleate 10 mg tablet Active 01/22/2021 Not available 1 tablet as needed by oral route for 7 days. Protonix 40 mg tablet,delayed release Completed 11/20/2010 11/20/2010 1 (one) Tab DR: daily quinine 324 mg capsule Completed 02/20/2007 7 1 (one) Capsule: at bedtime ranitidine 150 mg capsule Completed 03/14/20052005 1 (one) Capsule: BID Remeron 15 mg tablet Completed 11/21/2016 12/05/2016 1 (one) Tablet: qhs - at bedtime Requip 1 mg tablet Completed 12/21/2014 01/25/2015 1 Tablet: at bedtime Requip 2 mg tablet Completed 06/28/2015 11/30/2015 1-2 Tablet: daily at bedtime as needed Robitussin Long-Acting 1 mg-7.5 mg/5 mL oral liquid Completed ? 01/24/2020 5 cc po Q12 hrs prn. Singulair 10 mg tablet Completed 09/07/2007 8 1 (one) Tablet: Daily Spiriva with HandiHaler 18 mcg and inhalation capsules Completed 07/13/2007 11/04/2012 1 (one) Capsule: Daily Sterile Water for Injection Active 04/21/2018 Not available Stiolto Respimat 2.5 mcg-2.5 mcg/actuation solution for inha lation Active 01/22/2021 Not available 2 inhalations every day by inhalation route. sumatriptan 25 mg tablet Completed ? 020 sumatriptan 50 mg tablet Active 01/22/2021 Not duy ilable 1 tablet as needed by oral route as directed for 28 days. Symbicort 160 mcg-4.5 mcg/actuation HFA aerosol inhaler Active ? Not available Inhale 2 puffs twice a day by inhalation route. Terazol 3 0.8 % vaginal cream Completed 08/29/2009 1 (one) Applicator(s): QHS / HS Tessalon Perles 100 mg capsule Completed ? 0 01/22/2021 1-2 capsules three times a day as needed theophylline ER 400 mg tablet,extended release 24 hr Active 01/22/2021 Not available 1 tablet everyday in the morning and 1 tablet at mid-afternoon tramadol 50 mg tablet Completed ? 01/22/2021 trazodone 100 mg tablet Active ? Not avai lable Take 2 tablets every day by oral route at bedtime. trazodone 150 mg tablet Active 04/21/2018 Not avai lable trazodone 50 mg tablet Active 04/21/2018 Not avail able triamcinolone acetonide 0.1 % Completed ? topical cream triamcinolone acetonide 0.1 % topical ointment Completed ? 06/07/2020 APPLY A THIN LAYER TO THE AFFECTED AREA(S) BY TOPICAL ROUTE 2 T IMES PER DAY Tudorza Pressair 400 mcg/actuation breath activated Completed 12/21/2014 05/10/2015 1 Puff: two times daily Tylenol Extra Strength 500 mg tablet Completed 06/27/2011 06/27/2011 2 (two) Tablet: four times daily, as needed Xolair Completed ? 01/24/2020 injection once monthly Xolair 150 mg subcutaneous solution Active 01/22/2021 Not available Inject 150 mg every month by subcutaneous route. Xopenex HFA 45 mcg/actuation aerosol inhaler Completed 04/201309/16/2013 2 (two) Aerosol: QID PRN as directed Zantac 150 mg tablet Completed 12/08/2014 01/25/2015 1 Tablet: every twelve hours Zithromax Z-Murray 250 mg tablet Completed ? Take 2 tablets on day 1, then 1 tablet daily x 4 more days Zofran 4 mg tablet Completed ? 04/10/2020 1 (one) Tablet twice daily as needed no more then twice a day Zyban 150 mg tablet,extended release Completed 10/18/2009 03/05/2010 1 (one) Tablet ER 12HR: daily Problems Name Status Onset Date Source ? 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 Gastroesophageal Reflux Disease Active 06/07/2020 ? without Esophagitis Type 2 Diabetes Mellitus Active 03/09/2021 ? Osteoporosis Active 03/09/2021 ? Bacterial Intestinal Infectious Active ? History Disease Blood Coagulation Disorder Active ? Histo ry Nicotine Dependence Active ? History Depressive Disorder Active ? History Insomnia Active ? History Restless Legs Active ? History Migraine Active ? History Xanthoma of Eyelid Active ? History M?Ni?Re's Disease Active ? History Allergic Rhinitis Active ? History Disorder of Upper Respiratory System Unknown ? History Acute Exacerbation of Chronic Active ? Hi story Obstructive Airways Disease Asthma Active ? History Chronic Obstructive Lung Disease Active ? History Acute Vaginitis Unknown ? History Rotator Cuff Shoulder Syndrome and Active ? History Allied Disorders Lack of Energy Active ? History Abnormal Weight Loss Active ? History Chest Pain Active ? History Nausea Unknown ? History Stool Color Abnormal Unknown ? History Inconclusive Evaluation Finding Unknown ? History Abnormal Findings on Diagnostic Unknown ? History Imaging of Breast Sprain of Shoulder Rotator Cuff Unknown ? History Disorder of Skin And/or Subcutaneous Active ? History Tissue Therapeutic Drug Monitoring Assay Active ? History Gynecologic Examination Unknown ? History Screening Mammography Unknown ? History Procedure by Method Unknown ? History Cytologic Finding Unknown ? History Otalgia of Left Ear Unknown ? History Emotional State Finding Unknown ? History Menopause Present Active ? History Disorder of Trunk Unknown ? History Clinical Finding Unknown ? History Finding of Esophagus Unknown ? History Procedures Date Name Performed by ? 12/30/2019 Port Vascular Access Insertion Informati on not available Notes: Done at [facility] 06/04/2018 Bronchoscopy (Surg) Information not avai lable 04/21/2018 Bronchoscopy Information not avai lable 03/17/2013 Endometrial Ablation Information not duy ilable 08/18/1997 Tubal Ligation Information not avai lable 03/26/2018 MAMMO, Diagnostic, Tomosynthesis, [facility] Radiology (Internal) Unilateral [address] [place] [address] (Work Place) 04/02/2018 CT, Chest, [facility] [address] [place] [address] (Work Place) 04/22/2018 XR, Chest, 2 View [facility] Radiology (Internal) [address] [place] [address] (Work Place) 06/09/2018 XR, Chest, 2 View [facility]iology (Internal) [address] [place] [address] (Work Place) 05/18/2018 CT, Chest, W/o Contrast [facility] Radiology (Internal) [address] [place] [address] (Work Place) 05/29/2018 PET-CT, Skull Base to Mid-thigh Scan [facility] Radiology (Internal) [address] [place] [address] (Work Place) 06/08/2018 MRI, Brain, W/wo Contrast [facility] Radiology (Internal) [address] [place] [address] (Work Place) 06/10/2018 XR, Chest, 2 View [facility] Radiology (Internal) [address] [place] [address] (Work Place) 06/10/2018 US, Echocardiogram [facility] Radiology (Internal) [address] [place] [address] (Work Place) 08/24/2018 MAMMO, Screening, Tomosynthesis, [facility] Radiology (Internal) Bilateral [address] [place] [address] (Work Place) 08/31/2018 XR, Shoulder, 2 or More View [facility] Radiology (Internal) [address] [place] [address] (Work Place) 09/14/2018 US, Head + Neck, Soft Tissue [facility] Radiology (Internal) [address] [place] [address] (Work Place) 09/16/2019 MAMMO, Screening, Tomosynthesis, [facility]iology (Internal) Bilateral [address] [place] [address] (Work Place) 10/04/2019 XR, Chest, 2 View [facility] ([facility]) [address] [place] [address] (Work Place) 04/18/2020 DEXA, Axial Skeleton [facility] Radiology (Internal) [address] [place] [address] (Work Place) 09/18/2020 MAMMO, Screening, Tomosynthesis, [facility]iology (Internal) Bilateral [address] [place] [address] (Work Place) 01/10/2021 [facility] [address] [place] [address] (Work Place) Results Lab Results Date Name Specimen Result Interpretation Description Value Range Status Address ? 02/21/2021 Urinalysis, UR ? UA-color yellow pale Final [place] Dipstick, yellow [facility] (Internal) : [address] ? ? UR ? UA-appear clear clear Final [facility] L ab (Internal) : [address] ? ? UR ? UA-spec 1.015 1.003-1.[address] L ab (Internal) : [address] ? ? UR ? UA-pH 7.5 [pH] 4.6-8.0 Final [place] [pH] [facility] L ab (Internal) : [address], [place] ? ? UR ? UA-leuk negative negative Final Nort h [facility] L ab (Internal) : [address] ? ? UR ABNOR UA-nitrite positive negative Final N orth [facility] L ab (Internal) : [address] ? ? UR ? [facility]-prot negative negative [facility] [address] ? ? UR ABNOR UA-gluc 4+ negative Final [facility] L ab (Internal) : [address] ? ? UR ? UA-ketone negative negative Final No rth [facility] L ab (Internal) : [address] t ? ? UR ? UA-urobil normal normal Final [facility] L ab (Internal) : [address] t ? ? UR ? UA-bili negative negative Final [facility] L ab (Internal) : [address] t ? ? UR ? UA-blood negative negative Final [facility] L ab (Internal) : [address] 02/21/2021 Lipid Panel, S High Chol 204 mg/dL 50-200 Y[place]y l [place] Serum mg/dL [facility] L ab (Internal) : [address] t ? ? S High Trig 180 mg/dL 10-150 Final [place] mg/dL [facility] L ab (Internal) : [address] t ? ? S ? Hdl 55 mg/dL 40-60 Final [place] mg/dL [facility] L ab (Internal) : [address] ? ? S ? Ldl 113 mg/dL 0-130 Final [place] mg/dL [facility] L ab (Internal) : [address] 02/21/2021 CBC W/ Auto BLD High Wbc 12.2 5.0-10.0 Final [place] Diff 10*3/uL 10*3/uL [facility] L ab (Internal) : [address] ? ? BLD ? Rbc 4.92 4.10-5.30 Final [place] 10*6/uL 10*6/uL [facility] L ab (Internal) : [address] ? ? BLD ? Hgb 14.9 g/dL 12.0-16.0 Final Nort h g/dL [facility] L ab (Internal) : [address] t ? ? BLD ? Hct 46.1 % 37.0-47.0 Final [facility] L ab (Internal) : [address] t ? ? BLD ? Mcv 93.7 fL 80.0-96.0 Final [place] fL [facility] L ab (Internal) : [address] ? ? BLD ? Mch 30.3 pg 26.0-32.0 Final [place] pg [facility] L ab (Internal) : [address] t ? ? BLD ? Mchc 32.3 g/dL 31.0-35.0 Final Nort h g/dL [facility] L ab (Internal) : [address] t ? ? BLD ? Rdw 13.1 % 11.5-14.5 Final [facility] L ab (Internal) : [address] t ? ? BLD ? Plt 255 130-450 Final [place] 10*3/uL 10*3/uL [facility] L ab (Internal) : [address] t 02/21/2021 CMP, Serum or S High g/r 184 mg/dL 74-106 Fin al [place] Plasma mg/dL [facility] (Internal) : [address] ? ? S ? Bun 14 mg/dL 7-17 Final [place] mg/dL [facility] L ab (Internal) : [address] t ? ? S ? Crea 0.70 0.52-1.04 Final [place] mg/dL mg/dL [facility] L ab (Internal) : [address] t ? ? S ? Ca 9.6 mg/dL 8.4-10.2 Final [place] mg/dL [facility] L ab (Internal) : [address] t ? ? S Low Na 136 137-145 Final [place] mmol/L mmol/L [facility] L ab (Internal) : [address] t ? ? S ? K 3.5 3.5-5.1 Final [place] mmol/L mmol/L [facility] L ab (Internal) : [address] t ? ? S Low Cl 96 mmol/L 98-107 Final [place] mmol/L [facility] L ab (Internal) : [address] ? ? S ? Tco2 28.0 22.0-30.0 Final [place] mmol/L mmol/L [facility] L ab (Internal) : [address] t ? ? S ? Tp 7.0 g/dL 6.3-8.2 Final [place] g/dL [facility] L ab (Internal) : [address] t ? ? S ? Alb 4.0 g/dL 3.5-5.0 Final [place] g/dL [facility] L ab (Internal) : [address] t ? ? S ? Tbil 0.4 mg/dL 0.2-1.3 Final [place] mg/dL [facility] L ab (Internal) : [address] t ? ? S Low Alp 48 U/L 50-136 Final [place] U/L [facility] L ab (Internal) : [address] t ? ? S ? Alt (Sgpt) 28 U/L 9-52 U/L Final [facility] L ab (Internal) : [address] ? ? S ? Ast (Sgot) 22 U/L 14-36 U/L Final No rth [facility] L ab (Internal) : [address] 02/21/2021 Urinalysis, UR ABNOR UA-WBC 10-25 0-3 [hpf] [place] [place] Microscopic MAL [hpf] [facility] L ab (Internal) : [address] t ? ? UR ? UA-RBC 0-2 [hpf] 0-2 [hpf] Final [facility] L ab (Internal) : [address] t ? ? UR ABNOR UA-bacteri many none seen Final No rth MAL a [hpf] [hpf] [facility] L ab (Internal) : [address] t ? ? UR ABNOR UA-epithel few [hpf] none seen Final [place] MAL ial [hpf] [facility] L ab (Internal) : [address] t ? ? UR ABNOR UA-mucus few [hpf] none seen Final N orth MAL [hpf] [facility] L ab (Internal) : [address] 02/21/2021 HbA1C BLD High Ha1C 7.1 % 4.0-6.0 % Final [facility] th (Hemoglobin Count ry a1C), Blood Hospi [facility] Lab (Internal) : [address] 02/21/2021 Differential, BLD ? Polys 72 % 40-75 % Final [facility] Blood [facility] L ab (Internal) : [address] t ? ? BLD ? Bands 0 % 0-5 % Final [facility] L ab (Internal) : [address] t ? ? BLD Low Lymphs 17 % 20-50 % Final [facility] ab (Internal) : [address] t ? ? BLD ? [place] 9 % 2-10 % Final [facility] L ab (Internal) : [address] t ? ? BLD ? Eos 0 % 0-6 % Final [facility] L ab (Internal) : [address] t ? ? BLD ? Baso 0 % 0-1 % Final [facility] ab (Internal) : [address] t ? ? BLD ? Atyp Lymph 0 % ? Final [facility] ab (Internal) : [address] t ? ? BLD High Young 2 % 0-0 % Final [facility] L ab (Internal) : [address] t ? ? BLD ? Plts, Est. adequate adequate Final N [facility] L ab (Internal) : [address] t ? ? BLD ? RBC normal normal Final [facility] L ab (Internal) : [address] 02/21/2021 Neutrophil BLD ? Anc-manual 8.78 ? Yudy roberson [place] Count, 10*3/uL [facility] Lab (Anc), Blood (Int ernal): [address] 02/21/2021 Nlr-manual BLD High Nlr - 4.24 0.00-3.20 Final [facility] L ab (Internal) : [address] 02/21/2021 Culture UR ? Final microbiol ? Final No rth ([place] Count), Urine results [facility] Lab (Internal) : [address] 01/22/2021 Vancomycin, S ? Vanco, 19.1 15.0-20.0 Yudy l [place] Trough, Serum Trough ug/mL ug/mL [facility] L ab (Internal) : [address] 01/21/2021 Cbc BLD High Wbc 20.6 5.0-10.0 Final Nort h 10*3/uL 10*3/uL [facility] L ab (Internal) : [address] t ? ? BLD ? Rbc 4.72 4.10-5.30 Final [place] 10*6/uL 10*6/uL [facility] L ab (Internal) : [address] t ? ? BLD ? Hgb 14.2 g/dL 12.0-16.0 Final Nort h g/dL [facility] L ab (Internal) : [address] t ? ? BLD ? Hct 43.9 % 37.0-47.0 Final [facility] L ab (Internal) : [address] t ? ? BLD ? Mcv 93.0 fL 80.0-96.0 Final [facility] L ab (Internal) : [address] t ? ? BLD ? Mch 30.1 pg 26.0-32.0 Final [facility] L ab (Internal) : [address] t ? ? BLD ? Mchc 32.3 g/dL 31.0-35.0 Final Nort h g/dL [facility] L ab (Internal) : [address] t ? ? BLD ? Rdw 13.0 % 11.5-14.5 Final [facility] L ab (Internal) : [address] t ? ? BLD ? Plt 241 130-450 Final [place] 10*3/uL 10*3/uL [facility] L ab (Internal) : [address] t ? ? BLD ? Anc 16.88 ? Final [place] 10*3/uL [facility] L ab (Internal) : [address] 01/21/2021 Vancomycin, S Low Vanco, 7.6 ug/mL 15.0-20.0 F inal [place] Trough, Serum Trough ug/mL [facility] L ab (Internal) : [address] 01/20/2021 Culture, SPT ? Final microbiol ? Final N orth Sputum ogy [facility] Hospital Lab (Internal) : [address] 01/19/2021 Cbc BLD High Wbc 16.4 5.0-10.0 Final Nort h 10*3/uL 10*3/uL [facility] L ab (Internal) : [address] t ? ? BLD ? Rbc 4.38 4.10-5.30 Final [place] 10*6/uL 10*6/uL [facility] L ab (Internal) : [address] t ? ? BLD ? Hgb 13.3 g/dL 12.0-16.0 Final [facility] g/dL [facility] L ab (Internal) : [address] ? ? BLD ? Hct 40.9 % 37.0-47.0 Final [facility] L ab (Internal) : [address] ? ? BLD ? Mcv 93.4 fL 80.0-96.0 Final [facility] L ab (Internal) : [address] t ? ? BLD ? Mch 30.4 pg 26.0-32.0 Final [facility] L ab (Internal) : [address] ? ? BLD ? Mchc 32.5 g/dL 31.0-35.0 Final [facility] g/dL [facility] L ab (Internal) : [address] ? ? BLD ? Rdw 13.2 % 11.5-14.5 Final [facility] L ab (Internal) : [address] ? ? BLD ? Plt 236 130-450 Final [place] 10*3/uL 10*3/uL [facility] L ab (Internal) : [address] ? ? BLD ? Anc 14.35 ? Final [place] 10*3/uL [facility] L ab (Internal) : [address] 01/19/2021 BMP, Serum or S High g/r 290 mg/dL 74-106 Fin al [place] Plasma mg/dL [facility] ([facility] : [address] t ? ? S ? Bun 17 mg/dL 7-17 Final [place] mg/dL [facility] L [facility] (Internal) : [address] t ? ? S ? Crea 0.60 0.52-1.04 Final [place] mg/dL mg/dL [facility] L [facility] (Internal) : [address] t ? ? S ? Ca 8.8 mg/dL 8.4-10.2 Final [place] mg/dL [facility] L [facility] (Internal) : [address] t ? ? S ? Na 137 137-145 Final [place] mmol/L mmol/L [facility] L [facility] (Internal) : [address] t ? ? S ? K 4.4 3.5-5.1 Final [place] mmol/L mmol/L [facility] L [facility] (Internal) : [address] t ? ? S ? Cl 100 98-107 Final [place] mmol/L mmol/L [facility] L [facility] (Internal) : [address] t ? ? S High Tco2 31.0 22.0-30.0 Final [place] mmol/L mmol/L [facility] (Internal) : [address] t 01/18/2021 Cbc BLD High Wbc 21.2 5.0-10.0 Final Nort h 10*3/uL 10*3/uL [facility] (Internal) : [address] t ? ? BLD ? Rbc 4.57 4.10-5.30 Final [place] 10*6/uL 10*6/uL [facility] (Internal) : [address] t ? ? BLD ? Hgb 13.9 g/dL 12.0-16.0 Final [facility] g/dL [facility] (Internal) : [address] t ? ? BLD ? Hct 42.6 % 37.0-47.0 Final [place] % [facility] L ab (Internal) : [address] t ? ? BLD ? Mcv 93.2 fL 80.0-96.0 Final [facility] fL [facility] L [facility] (Internal) : [address] t ? ? BLD ? Mch 30.4 pg 26.0-32.0 Final [facility] pg [facility] L [facility] (Internal) : [address] t ? ? BLD ? Mchc 32.6 g/dL 31.0-35.0 Final Nort [facility] g/dL [facility] (Internal) : [address] t ? ? BLD ? Rdw 13.2 % 11.5-14.5 Final [place] % [facility] (Internal) : [address] t ? ? BLD ? Plt 249 130-450 Final [place] 10*3/uL 10*3/uL [facility] (Internal) : [address] t ? ? BLD ? Anc 18.45 ? Final [place] 10*3/uL [facility] (Internal) : [address] t 01/18/2021 BMP, Serum or S High g/r 196 mg/dL 74-106 Fin al [place] Plasma mg/dL [facility] (Internal) : [address] t ? ? S ? Bun 16 mg/dL 7-17 Final [place] mg/dL [facility] (Internal) : [address] t ? ? S ? Crea 0.60 0.52-1.04 Final [place] mg/dL mg/dL [facility] L [facility] (Internal) : [address] t ? ? S ? Ca 9.0 mg/dL 8.4-10.2 Final [place] mg/dL [facility] L [facility] (Internal) : [address] t ? ? S ? Na 138 137-145 Final [place] mmol/L mmol/L [facility] (Internal) : [address] t ? ? S ? K 4.0 3.5-5.1 Final [place] mmol/L mmol/L [facility] L [facility] (Internal) : [address] t ? ? S ? Cl 101 98-107 Final [place] mmol/L mmol/L [facility] L [facility] (Internal) : [address] t ? ? S ? Tco2 28.0 22.0-30.0 Final [place] mmol/L mmol/L [facility] L ab (Internal) : [address] 01/17/2021 Cbc BLD High Wbc 13.0 5.0-10.0 Final Nort h 10*3/uL 10*3/uL [facility] L ab (Internal) : [address] ? ? BLD ? Rbc 4.77 4.10-5.30 Final [place] 10*6/uL 10*6/uL [facility] L ab (Internal) : [address] t ? ? BLD ? Hgb 14.5 g/dL 12.0-16.0 Final Nort h g/dL [facility] L ab (Internal) : [address] ? ? BLD ? Hct 44.8 % 37.0-47.0 Final [facility] L ab (Internal) : [address] ? ? BLD ? Mcv 93.9 fL 80.0-96.0 Final [facility] L ab (Internal) : [address] ? ? BLD ? Mch 30.4 pg 26.0-32.0 Final [facility] L ab (Internal) : [address] t ? ? BLD ? Mchc 32.4 g/dL 31.0-35.0 Final Nort h g/dL [facility] L ab (Internal) : [address] ? ? BLD ? Rdw 13.2 % 11.5-14.5 Final [facility] L ab (Internal) : [address] ? ? BLD ? Plt 263 130-450 Final [place] 10*3/uL 10*3/uL [facility] L ab (Internal) : [address] ? ? BLD ? Anc 11.70 ? Final [place] 10*3/uL [facility] L ab (Internal) : [address] 01/17/2021 BMP, Serum or S High g/r 197 mg/dL 74-106 Fin al [place] Plasma mg/dL [facility] L ab (Internal) : [address] ? ? S High Bun 20 mg/dL 7-17 Final [place] mg/dL [facility] L ab (Internal) : [address] t ? ? S ? Crea 0.70 0.52-1.04 Final [place] mg/dL mg/dL [facility] (Internal) : [address] t ? ? S ? Ca 9.5 mg/dL 8.4-10.2 Final [place] mg/dL [facility] (Internal) : [address] t ? ? S ? Na 137 137-145 Final [place] mmol/L mmol/L [facility] (Internal) : [address] t ? ? S ? K 4.5 3.5-5.1 Final [place] mmol/L mmol/L [facility] (Internal) : [address] t ? ? S ? Cl 100 98-107 Final [place] mmol/L mmol/L [facility] (Internal) : [address] t ? ? S ? Tco2 30.0 22.0-30.0 Final [place] mmol/L mmol/L [facility] L [facility] (Internal) : [address] t 01/17/2021 Troponin I, S ? Trop <0.06 0.00-0.06 Final [place] Serum or NG/mL NG/mL [facility] L [facility] (Internal) : [address] t 01/17/2021 Troponin I, S ? Trop <0.06 0.00-0.06 Final [place] Serum or NG/mL NG/mL [facility] L [facility] (Internal) : [address] t 01/16/2021 CBC W/ Auto BLD High Wbc 17.7 5.0-10.0 Final [place] Diff 10*3/uL 10*3/uL [facility] (Internal) : [address] t ? ? BLD ? Rbc 5.05 4.10-5.30 Final [place] 10*6/uL 10*6/uL [facility] (Internal) : [address] t ? ? BLD ? Hgb 15.4 g/dL 12.0-16.0 Final Nort [facility] g/dL [facility] (Internal) : [address] t ? ? BLD High Hct 47.1 % 37.0-47.0 Final [facility] % [facility] (Internal) : [address] t ? ? BLD ? Mcv 93.3 fL 80.0-96.0 Final [facility] L ab (Internal) : [address] ? ? BLD ? Mch 30.5 pg 26.0-32.0 Final [facility] L ab (Internal) : [address] ? ? BLD ? Mchc 32.7 g/dL 31.0-35.0 Final Nort h g/dL [facility] L ab (Internal) : [address] t ? ? BLD ? Rdw 13.4 % 11.5-14.5 Final [facility] L ab (Internal) : [address] t ? ? BLD ? Plt 259 130-450 Final [place] 10*3/uL 10*3/uL [facility] L ab (Internal) : [address] 01/16/2021 D-dimer, PLASMA High Dimq 1.47 mg/L 0.00-0.50 Final [facility], Plasma mg/L [facility] L ab (Internal) : [address] 01/16/2021 Differential, BLD High Polys 84 % 40-75 % Final [facility], Blood Cou [facility] L ab (Internal) : [address] t ? ? BLD ? Bands 0 % 0-5 % Final [facility] L ab (Internal) : [address] t ? ? BLD Low Lymphs 9 % 20-50 % Final [facility] L ab (Internal) : [address] t ? ? BLD ? Sher[place] 6 % 2-10 % Final [facility] L ab (Internal) : [address] t ? ? BLD ? Eos 0 % 0-6 % Final [facility] L ab (Internal) : [address] t ? ? BLD ? Baso 0 % 0-1 % Final [facility] L ab (Internal) : [address] t ? ? BLD ? Atyp Lymph 0 % ? Final [facility] L ab (Internal) : [address] t ? ? BLD High Young 1 % 0-0 % Final [place] [facility] (Internal) : [address] t ? ? BLD ? Plts, Est. adequate adequate Final N orth [facility] L [facility] (Internal) : [address] t ? ? BLD ? RBC normal normal Final [place] [facility] L ab (Internal) : [address] 01/16/2021 Neutrophil BLD ? Anc-manual 14.89 ? Yudy l [place] Count, 10*3/uL [facility] (Anc), Blood (Int ernal): [address] 01/16/2021 Nlr-manual BLD High Nlr - 9.33 0.00-3.20 Final [facility] L ab (Internal) : [address] 01/16/2021 CMP, Serum or S High g/r 205 mg/dL 74-106 Fin al [place] Plasma mg/dL [facility] (Internal) : [address] t ? ? S ? Bun 15 mg/dL 7-17 Final [place] mg/dL [facility] L ab (Internal) : [address] t ? ? S ? Crea 0.80 0.52-1.04 Final [place] mg/dL mg/dL [facility] L ab (Internal) : [address] t ? ? S ? Ca 9.7 mg/dL 8.4-10.2 Final [place] mg/dL [facility] L ab (Internal) : [address] t ? ? S ? Na 138 137-145 Final [place] mmol/L mmol/L [facility] L ab (Internal) : [address] t ? ? S ? K 3.9 3.5-5.1 Final [place] mmol/L mmol/L [facility] (Internal) : [address] t ? ? S Low Cl 96 mmol/L 98-107 Final [place] mmol/L [facility] L ab (Internal) : [address] t ? ? S ? Tco2 29.0 22.0-30.0 Final [place] mmol/L mmol/L [facility] L ab (Internal) : [address] t ? ? S ? Tp 6.7 g/dL 6.3-8.2 Final [place] g/dL [facility] L ab (Internal) : [address] t ? ? S ? Alb 3.8 g/dL 3.5-5.0 Final [place] g/dL [facility] L ab (Internal) : [address] t ? ? S ? Tbil 0.5 mg/dL 0.2-1.3 Final [place] mg/dL [facility] L ab (Internal) : [address] t ? ? S ? Alp 50 U/L 50-136 Final [place] U/L [facility] L ab (Internal) : [address] t ? ? S ? Alt (Sgpt) 16 U/L 9-52 U/L Final [facility] Hospital L ab (Internal) : [address] t ? ? S ? Ast (Sgot) 19 U/L 14-36 U/L Final No rth [facility] L ab (Internal) : [address] 01/16/2021 CRP, High S High Rcrp 1.03 0.10-0.30 Final [place] Sensitivity, mg/dL mg/dL Coun try Serum or Hospital Lab Plasma (Internal) : [address] 01/16/2021 Troponin I, S ? Trop <0.06 0.00-0.06 Final [place] Serum or NG/mL NG/mL [facility] Hospital L ab (Internal) : [address] 01/16/2021 Urinalysis, UR ? UA-color yellow pale Final [place] Dipstick, yellow [facility] Lab (Internal) : [address] ? ? UR ? UA-appear clear clear Final [facility] L ab (Internal) : [address] ? ? UR ? UA-spec <=1.005 1.003-1.0 Final Nort h Grav 35 [facility] L ab (Internal) : [address] ? ? UR ? UA-pH 6.5 [pH] 4.6-8.0 Final [place] [pH] [facility] L ab (Internal) : [address] ? ? UR ? UA-leuk negative negative Final [facility] (Internal) : [address] t ? ? UR ? UA-nitrite negative negative Final N orth [facility] L ab (Internal) : [address] t ? ? UR ? UA-prot negative negative Final Nort h [facility] L ab (Internal) : [address] t ? ? UR ? UA-gluc negative negative Final Nort [facility] L ab (Internal) : [address] t ? ? UR ? UA-ketone negative negative Final No rth [facility] L ab (Internal) : [address] t ? ? UR ? UA-urobil normal normal Final [facility] L ab (Internal) : [address] t ? ? UR ? UA-bili negative negative Final Nort [facility] L ab (Internal) : [address] t ? ? UR ? UA-blood negative negative Final [facility] L ab (Internal) : [address] 01/16/2021 Ph, Venous BLD High Venous pH 7.47 [pH] 7.32-7.43 Final [place] [pH] [facility] L ab (Internal) : [address] t ? ? BLD ? Pco2 43 mm[hg] 33-47 Final [place] mm[hg] [facility] L ab (Internal) : [address] t ? ? BLD ? TCO2, 32 mmol/L ? Final [place] Venous [facility] L ab (Internal) : [address] t ? ? BLD ? Base 6.3 ? Final [place] mmol/L [facility] L ab (Internal) : [address] 01/16/2021 Respiratory FLUID ? Final microbiol ? Final [place] Virus Panel ogy Count ry results Hospital Lab (Internal) : [address] 01/16/2021 Troponin I, S ? Trop <0.06 0.00-0.06 Final [place] Serum or NG/mL NG/mL [facility] Plasma [facility] L ab (Internal) : [address] 12/18/2020 CBC W/ Auto BLD ? Wbc 7.5 5.0-10.0 Final [place] Diff 10*3/uL 10*3/uL [facility] L ab (Internal) : [address] t ? ? BLD ? Rbc 4.79 4.10-5.30 Final [place] 10*6/uL 10*6/uL [facility] L ab (Internal) : [address] t ? ? BLD ? Hgb 14.7 g/dL 12.0-16.0 Final Nort h g/dL [facility] L ab (Internal) : [address] t ? ? BLD ? Hct 45.7 % 37.0-47.0 Final [facility] L ab (Internal) : [address] t ? ? BLD ? Mcv 95.4 fL 80.0-96.0 Final [facility] L ab (Internal) : [address] t ? ? BLD ? Mch 30.7 pg 26.0-32.0 Final [facility] L ab (Internal) : [address] t ? ? BLD ? Mchc 32.2 g/dL 31.0-35.0 Final Nort h g/dL [facility] L ab (Internal) : [address] t ? ? BLD ? Rdw 13.5 % 11.5-14.5 Final [facility] L ab (Internal) : [address] t ? ? BLD ? Plt 200 130-450 Final [place] 10*3/uL 10*3/uL [facility] L ab (Internal) : [address] t 12/18/2020 CMP, Serum or S High g/r 147 mg/dL 74-106 Fin al [place] Plasma mg/dL [facility] L ab (Internal) : [address] t ? ? S ? Bun 14 mg/dL 7-17 Final [place] mg/dL [facility] L ab (Internal) : [address] t ? ? S ? Crea 0.70 0.52-1.04 Final [place] mg/dL mg/dL [facility] L ab (Internal) : [address] t ? ? S ? Ca 9.3 mg/dL 8.4-10.2 Final [place] mg/dL [facility] L ab (Internal) : [address] t ? ? S ? Na 137 137-145 Final [place] mmol/L mmol/L [facility] (Internal) : [address] t ? ? S ? K 4.5 3.5-5.1 Final [place] mmol/L mmol/L [facility] (Internal) : [address] t ? ? S ? Cl 100 98-107 Final [place] mmol/L mmol/L [facility] (Internal) : [address] t ? ? S High Tco2 31.0 22.0-30.0 Final [place] mmol/L mmol/L [facility] (Internal) : [address] t ? ? S ? Tp 6.4 g/dL 6.3-8.2 Final [place] g/dL [facility] (Internal) : [address] t ? ? S ? Alb 3.6 g/dL 3.5-5.0 Final [place] g/dL [facility] (Internal) : [address] t ? ? S ? Tbil 0.3 mg/dL 0.2-1.3 Final [place] mg/dL [facility] (Internal) : [address] t ? ? S Low Alp 46 U/L 50-136 Final [place] U/L [facility] L ab (Internal) : [address] t ? ? S ? Alt (Sgpt) 37 U/L 9-52 U/L Final [facility] (Internal) : [address] t ? ? S ? Ast (Sgot) 28 U/L 14-36 U/L Final No rth [facility] (Internal) : [address] 12/18/2020 BNP (B-type S ? Nt-probnp <50 pg/mL 0-125 F inal [place] Natriuretic pg/mL Count ry Peptide), Hospita l Lab Prohormone (Inter nal): N-terminal, [address], [place] Immunoassay, Blood 12/18/2020 Troponin I, S ? Trop <0.06 0.00-0.06 Final [place] Serum or NG/mL NG/mL [facility] L ab (Internal) : [address] 12/18/2020 EKG Done by ? No ? ? ? N orth ED observation Count ry recorded. Hospita l Lab (Internal) : [address] 12/18/2020 Differential, BLD ? Polys 69 % 40-75 % Final [facility], Blood [facility] L ab (Internal) : [address] t ? ? BLD ? Bands 0 % 0-5 % Final [facility] L ab (Internal) : [address] t ? ? BLD Low Lymphs 16 % 20-50 % Final [facility] L ab (Internal) : [address] t ? ? BLD High [place] 13 % 2-10 % Final [facility] L ab (Internal) : [address] t ? ? BLD ? Eos 1 % 0-6 % Final [facility] L ab (Internal) : [address] t ? ? BLD ? Baso 1 % 0-1 % Final [facility] L ab (Internal) : [address] t ? ? BLD ? Atyp Lymph 0 % ? Final [facility] L ab (Internal) : [address] t ? ? BLD ? Plts, Est. adequate adequate Final [facility] L ab (Internal) : [address] t ? ? BLD ? RBC normal normal Final [facility] Hospital L ab (Internal) : [address] Rinkugenesis brown 12/18/2020 Neutrophil BLD ? Anc-manual 5.17 ? Yudy da [place] Count, 10*3/uL [facility] Absolute Hospital Lab (Anc), Blood (Int ernal): [address] 12/18/2020 Nlr-manual BLD High Nlr - 4.31 0.00-3.20 Final [facility] L ab (Internal) : [address] t 09/18/2020 Pap Test, MISC ? Hpv see ? Final Nor th Thinprep, report [facility] Lab (Internal) : [address] t ? ? MISC ? Pap see ? Final [place] report [facility] Hospital L ab (Internal) : [address], [place] ? ? MISC ? Report (see ? Final [place] below) [facility] (Internal) : [address] t 07/04/2020 SARS CoV 2 SWAB ? Sars-cov-2 nasophary ? F inal [place] RNA Specimen nx [facility] (COVID-19), Source [facility] Lab QL, air bag curer-PCR, (Int ernal): Respiratory [address] ? ? SWAB ? Patient unknown ? Final [facility] (Internal) : [address] [place] ? ? SWAB ? Patient unknown ? Final [facility] (Internal) : [address] , [place] ? ? SWAB ? Sars-cov-2 undetecte undetecte Final [place] RNA d d [facility] (Internal) : [address], [place] ? ? SWAB ? Method see below ? Final [facility] (Internal) : [address] 06/19/2020 SARS CoV 2 SWAB ? Sars-cov-2 nasophary ? F inal [place] RNA Specimen nx [facility] (COVID-19), Source Hospi [facility] Lab QL, air bag curer-PCR, (Int ernal): Respiratory [address] ? ? SWAB ? Patient unknown ? Final [facility] (Internal) : [address] ? ? SWAB ? Patient unknown ? Final [facility] (Internal) : [address], [place] ? ? SWAB ? Sars-cov-2 undetecte undetecte Final [place] RNA d d [facility] (Internal) : [address] ? ? SWAB ? Method see below ? Final [facility] (Internal) : [address] 06/15/2020 CBC W/ Auto BLD Low Wbc 4.4 5.0-10.0 Final [place] Diff 10*3/uL 10*3/uL [facility] (Internal) : [address] ? ? BLD ? Rbc 4.73 4.10-5.30 [facility] 10*6/uL 10*6/uL [facility] (Internal) : [address] ? ? BLD ? Hgb 14.3 g/dL 12.0-16.0 Final Nort h g/dL [facility] (Internal) : [address] t ? ? BLD ? Hct 43.9 % 37.0-47.0 Final [place] % [facility] L ab (Internal) : [address] t ? ? BLD ? Mcv 92.8 fL 80.0-96.0 Final [place] fL [facility] L ab (Internal) : [address] t ? ? BLD ? Mch 30.2 pg 26.0-32.0 Final [place] pg [facility] L ab (Internal) : [address] t ? ? BLD ? Mchc 32.6 g/dL 31.0-35.0 Final Nort h g/dL [facility] (Internal) : [address] t ? ? BLD ? Rdw 12.9 % 11.5-14.5 Final [facility] Hospital L ab (Internal) : [address] t ? ? BLD ? Plt 178 130-450 Final [place] 10*3/uL 10*3/uL [facility] (Internal) : [address] t 06/15/2020 BMP, Serum or S High g/r 165 mg/dL 74-106 Fin al [place] Plasma mg/dL [facility] (Internal) : [address] t ? ? S ? Bun 14 mg/dL 7-17 Final [place] mg/dL [facility] L ab (Internal) : [address] t ? ? S ? Crea 0.60 0.52-1.04 Final [place] mg/dL mg/dL [facility] (Internal) : [address] t ? ? S ? Ca 9.4 mg/dL 8.4-10.2 Final [place] mg/dL [facility] (Internal) : [address] t ? ? S ? Na 140 137-145 Final [place] mmol/L mmol/L [facility] L ab (Internal) : [address] t ? ? S ? K 4.4 3.5-5.1 Final [place] mmol/L mmol/L [facility] (Internal) : [address] t ? ? S ? Cl 104 98-107 Final [place] mmol/L mmol/L [facility] L ab (Internal) : [address] ? ? S ? Tco2 25.0 22.0-30.0 Final [place] mmol/L mmol/L [facility] L ab (Internal) : [address] 06/15/2020 D-dimer, PLASMA ? Dimq 0.28 mg/L 0.00-0.50 Final [place] Quant, Plasma mg/L Cou [facility] L ab (Internal) : [address] 06/15/2020 Differential, BLD ? Polys 64 % 40-75 % Final [place] Manual, Blood Cou [facility] L ab (Internal) : [address] ? ? BLD ? Bands 0 % 0-5 % Final [facility] L ab (Internal) : [address] ? ? BLD ? Lymphs 24 % 20-50 % Final [facility] L ab (Internal) : [address] ? ? BLD ? [place] 9 % 2-10 % Final [facility] L ab (Internal) : [address] ? ? BLD ? Eos 0 % 0-6 % Final [facility] L ab (Internal) : [address] ? ? BLD ? Baso 0 % 0-1 % Final [facility] L ab (Internal) : [address] ? ? BLD ? Atyp Lymph 0 % ? Final [facility] L ab (Internal) : [address] ? ? BLD High Young 3 % 0-0 % Final [facility] L ab (Internal) : [address] t ? ? BLD ? Plts, Est. adequate adequate Final N [facility] L ab (Internal) : [address] ? ? BLD ? RBC normal normal Final [facility] L ab (Internal) : [address] ? ? BLD ? Hyperseg rare % ? Final [facility] L ab (Internal) : [address] 06/15/2020 Neutrophil BLD ? Anc-manual 2.82 ? Yudy l [place] Count, 10*3/uL [facility] Lab (Anc), Blood (Int ernal): [address] 06/15/2020 Nlr-manual BLD ? Nlr - 2.67 0.00-3.20 Final [place] Manual [facility] (Internal) : [address] 04/27/2020 Lipid Panel, S High Chol 232 mg/dL 50-200 Yudy l [place] Serum mg/dL [facility] L ab (Internal) : [address] t ? ? S High Trig 228 mg/dL 10-150 Final [place] mg/dL [facility] L ab (Internal) : [address] t ? ? S High Hdl 61 mg/dL 40-60 Final [place] mg/dL [facility] L ab (Internal) : [address] t ? ? S ? Ldl 125 mg/dL 0-130 Final [place] mg/dL [facility] L ab (Internal) : [address] 04/10/2020 Drug Screen, UR ? Thc negative neg (50 Yudy l [place] Urine NG/mL NG/mL) [facility] NG/mL Hospital L ab (Internal) : [address] t ? ? UR ? Pcp negative neg (25 Final [place] NG/mL) [facility] L ab (Internal) : [address] t ? ? UR ? Nalini negative neg (150 Final [place] NG/mL) [facility] L ab (Internal) : [address] t ? ? UR ? Met negative neg (500 Final [place] NG/mL) [facility] L ab (Internal) : [address] t ? ? UR ? Opi negative neg (100 Final [place] NG/mL) [facility] L ab (Internal) : [address] t ? ? UR ? Amp negative neg (500 Final [place] NG/mL) [facility] L [facility] (Internal) : [address] t ? ? UR ABNOR Bzo positive neg (150 Final [place] MAL NG/mL) [facility] L ab (Internal) : [address] t ? ? UR ? Tca negative neg (300 Final [place] NG/mL) [facility] L [facility] (Internal) : [address] t ? ? UR ? Mtd negative neg (200 Final [place] NG/mL) [facility] L [facility] (Internal) : [address], [place] ? ? UR ? Bar negative neg (200 Final [place] NG/mL) [facility] L [facility] (Internal) : [address], [place] ? ? UR ? Oxy negative neg (100 Final [place] NG/mL) [facility] L [facility] (Internal) : [address], [place] ? ? UR ? Ppx negative neg (300 Final [place] NG/mL) [facility] L ab (Internal) : [address] [place] [address] ? ? UR ? Bup negative neg (10 Final [place] NG/mL) [facility] L ab (Internal) : [address] t 04/10/2020 Benzodiazepin UR ? Nordiazepa negative cutoff : Final [place] es, m-by GC/MS NG/mL 100 NG/mL Cou ntry Quantitative Hosp ital Lab Confirmation, (In ternal): Urine [address] t ? ? UR ? Oxazepam-b negative cutoff: Final No rth y GC/MS NG/mL 100 NG/mL [facility] Hospital L ab (Internal) : [address], [place] t ? ? UR ? Lorazepam- negative cutoff: Final No rth by GC/MS NG/mL 100 NG/mL Count ry Hospital L ab (Internal) : [address] t ? ? UR ? Temazepam- negative cutoff: Final No rth by GC/MS NG/mL 100 NG/mL Count ry Hospital L ab (Internal) : [address] t ? ? UR ? Oh-ethyl-f negative cutoff: Final No rth lurazepam-b NG/mL 100 NG/mL Co untry y GC/MS Hospital Lab (Internal) : [address] t ? ? UR ? 7-Nh-clona negative cutoff: Final No rth zepam-by NG/mL 100 NG/mL Count ry GC/MS Hospital L ab (Internal) : [address] t ? ? UR ? Alpha negative cutoff: Final [place] Oh-alprazol NG/mL 100 NG/mL Co untry am-by GC/MS Hospi chuck Lab (Internal) : [address] t ? ? UR ? 7-Nh-fluni negative cutoff: Final No rth trazepam-by NG/mL 50 NG/mL Cou ntry GC/MS Hospital L ab (Internal) : [address] t ? ? UR ? Alpha negative cutoff: Final [place]-triazola NG/mL 100 NG/mL Co untry m-by GC/MS Hospit al Lab (Internal) : [address] t ? ? UR ? Benzodiaze negative. ? Final No rth [facility] Interpretat Hospi chuck Lab ion (Internal) : [address] 03/09/2020 Theophylline, S ? Ronny 12.5 10.0-20.0 Fin al [place] Serum ug/mL ug/mL [facility] L ab (Internal) : [address] 02/28/2020 CBC W/ Auto BLD ? Wbc 5.4 5.0-10.0 Final [place] Diff 10*3/uL 10*3/uL [facility] L ab (Internal) : [address] ? ? BLD ? Rbc 4.67 4.10-5.30 Final [place] 10*6/uL 10*6/uL [facility] L ab (Internal) : [address] t ? ? BLD ? Hgb 14.3 g/dL 12.0-16.0 Final Nort h g/dL [facility] L ab (Internal) : [address] ? ? BLD ? Hct 43.5 % 37.0-47.0 Final [facility] L ab (Internal) : [address] ? ? BLD ? Mcv 93.1 fL 80.0-96.0 Final [facility] L ab (Internal) : [address] ? ? BLD ? Mch 30.6 pg 26.0-32.0 Final [place] pg [facility] L ab (Internal) : [address] t ? ? BLD ? Mchc 32.9 g/dL 31.0-35.0 Final Nort h g/dL [facility] L ab (Internal) : [address] ? ? BLD ? Rdw 12.1 % 11.5-14.5 Final [facility] % [facility] L ab (Internal) : [address] t ? ? BLD ? Plt 168 130-450 Final [place] 10*3/uL 10*3/uL [facility] L ab (Internal) : [address] t 02/28/2020 CMP, Serum or S ? g/r 105 mg/dL 74-106 Fin al [place] Plasma mg/dL [facility] L ab (Internal) : [address] t ? ? S ? Bun 10 mg/dL 7-17 Final [place] mg/dL [facility] L [facility] (Internal) : [address] t ? ? S ? Crea 0.80 0.52-1.04 Final [place] mg/dL mg/dL [facility] L ab (Internal) : [address] t ? ? S ? Ca 9.1 mg/dL 8.4-10.2 Final [place] mg/dL [facility] L ab (Internal) : [address] t ? ? S Low Na 136 137-145 Final [place] mmol/L mmol/L [facility] L [facility] (Internal) : [address] t ? ? S ? K 4.2 3.5-5.1 Final [place] mmol/L mmol/L [facility] L ab (Internal) : [address] t ? ? S ? Cl 106 98-107 Final [place] mmol/L mmol/L [facility] L [facility] (Internal) : [address] t ? ? S ? Tco2 26.0 22.0-30.0 Final [place] mmol/L mmol/L [facility] L [facility] (Internal) : [address] t ? ? S ? Tp 6.9 g/dL 6.3-8.2 Final [place] g/dL [facility] L [facility] (Internal) : [address] t ? ? S ? Alb 3.7 g/dL 3.5-5.0 Final [place] g/dL [facility] L [facility] (Internal) : [address] t ? ? S ? Tbil 0.7 mg/dL 0.2-1.3 Final [place] mg/dL [facility] L [facility] (Internal) : [address] t ? ? S ? Alp 59 U/L 50-136 Final [place] U/L [facility] L [facility] (Internal) : [address] t ? ? S ? Alt (Sgpt) 18 U/L 9-52 U/L Final [facility] L ab (Internal) : [address] t ? ? S ? Ast (Sgot) 22 U/L 14-36 U/L Final No rth [facility] L ab (Internal) : [address] 02/28/2020 Differential, BLD ? Polys 52 % 40-75 % Final [facility] Blood Cou [facility] L ab (Internal) : [address] t ? ? BLD ? Bands 0 % 0-5 % Final [facility] ab (Internal) : [address] t ? ? BLD ? Lymphs 36 % 20-50 % Final [facility] ab (Internal) : [address] t ? ? BLD High [place] 11 % 2-10 % Final [facility] ab (Internal) : [address] t ? ? BLD ? Eos 0 % 0-6 % Final [facility] ab (Internal) : [address] t ? ? BLD ? Baso 0 % 0-1 % Final [facility] ab (Internal) : [address] t ? ? BLD ? Atyp Lymph 1 % ? Final [facility] ab (Internal) : [address] t ? ? BLD ? Plts, Est. adequate adequate Final N [facility] L ab (Internal) : [address] t ? ? BLD ? RBC normal normal Final [facility] L ab (Internal) : [address] 02/28/2020 Neutrophil BLD ? Anc-manual 2.78 ? Yudy da [place] Count, 10*3/uL [facility] Lab (Anc), Blood (Int ernal): [address] 02/28/2020 Nlr-manual BLD ? Nlr - 1.44 0.00-3.20 Final [facility] L ab (Internal) : [address] 12/03/2019 SARS CoV 2 S ? Covid results ? Final N [facility] RNA Send-out received Countr y (COVID-19), from [facility] Lab QL, air bag curer-PCR, (Int ernal): Respiratory [address] 10/26/2019 CBC W/ Auto BLD ? Wbc 8.8 5.0-10.0 Final [place] Diff 10*3/uL 10*3/uL [facility] L ab (Internal) : [address] ? ? BLD ? Rbc 4.37 4.10-5.30 Final [place] 10*6/uL 10*6/uL [facility] L ab (Internal) : [address] ? ? BLD ? Hgb 14.4 g/dL 12.0-16.0 Final Nort h g/dL [facility] L ab (Internal) : [address] ? ? BLD ? Hct 43.8 % 37.0-47.0 Final [facility] L ab (Internal) : [address] t ? ? BLD High Mcv 100.2 fL 80.0-96.0 Final [facility] Hospital L ab (Internal) : [address] ? ? BLD High Mch 33.0 pg 26.0-32.0 Final [place] pg [facility] L ab (Internal) : [address] ? ? BLD ? Mchc 32.9 g/dL 31.0-35.0 Final Nort h g/dL [facility] L ab (Internal) : [address] t ? ? BLD ? Rdw 12.7 % 11.5-14.5 Final [facility] L ab (Internal) : [address] t ? ? BLD ? Plt 131 130-450 Final [place] 10*3/uL 10*3/uL [facility] L ab (Internal) : [address] t 10/26/2019 CMP, Serum or S High g/r 114 mg/dL 74-106 Fin al [place] Plasma mg/dL [facility] L ab (Internal) : [address] t ? ? S ? Bun 17 mg/dL 7-17 Final [place] mg/dL [facility] L ab (Internal) : [address] t ? ? S Low Crea 0.50 0.52-1.04 Final [place] mg/dL mg/dL [facility] L ab (Internal) : [address] t ? ? S ? Ca 8.8 mg/dL 8.4-10.2 Final [place] mg/dL [facility] L ab (Internal) : [address] t ? ? S ? Na 138 137-145 Final [place] mmol/L mmol/L [facility] L ab (Internal) : [address] t ? ? S ? K 3.8 3.5-5.1 Final [place] mmol/L mmol/L [facility] L ab (Internal) : [address] t ? ? S ? Cl 103 98-107 Final [place] mmol/L mmol/L [facility] L ab (Internal) : [address] t ? ? S ? Tco2 24.0 22.0-30.0 Final [place] mmol/L mmol/L [facility] L ab (Internal) : [address] t ? ? S ? Tp 7.2 g/dL 6.3-8.2 Final [place] g/dL [facility] L ab (Internal) : [address] t ? ? S ? Alb 4.2 g/dL 3.5-5.0 Final [place] g/dL [facility] L ab (Internal) : [address] t ? ? S ? Tbil 0.6 mg/dL 0.2-1.3 Final [place] mg/dL [facility] L ab (Internal) : [address] t ? ? S ? Alp 65 U/L 50-136 Final [place] U/L [facility] L [facility] (Internal) : [address] t ? ? S High Alt (Sgpt) 76 U/L 9-52 U/L Final Nor th [facility] L ab (Internal) : [address] t ? ? S High Ast (Sgot) 43 U/L 14-36 U/L Final No rth [facility] L ab (Internal) : [address] 10/26/2019 Lipase, Serum S ? Lip 43 U/L 23-300 Final [place] or Plasma U/L [facility] L ab (Internal) : [address] 10/26/2019 Differential, BLD High Polys 89 % 40-75 % Final [facility], Blood Cou [facility] L ab (Internal) : [address] t ? ? BLD ? Bands 0 % 0-5 % Final [facility] L ab (Internal) : [address] ? ? BLD Low Lymphs 8 % 20-50 % Final [facility] L ab (Internal) : [address] t ? ? BLD ? [place] 3 % 2-10 % Final [facility] L ab (Internal) : [address] t ? ? BLD ? Eos 0 % 0-6 % Final [facility] ab (Internal) : [address] t ? ? BLD ? Baso 0 % 0-1 % Final [facility] L ab (Internal) : [address] t ? ? BLD ? Atyp Lymph 0 % ? Final [facility] ab (Internal) : [address] ? ? BLD ? Plts, Est. adequate adequate Final [facility] L ab (Internal) : [address] t ? ? BLD ABNOR RBC abnormal normal Final [facility] L ab (Internal) : [address] ? ? BLD ? Macro occasiona ? Final [facility] ab (Internal) : [address] 10/26/2019 Neutrophil BLD ? Anc-manual 7.84 ? Yudy l [place] Count, 10*3/uL [facility] Lab (Anc), Blood (Int ernal): [address] 10/26/2019 Rapid Flu NASAL ? Final microbiol ? Final [place] (A+B) [facility] results Hospital Lab (Internal) : [address] 10/10/2019 CBC W/ Auto BLD High Wbc 10.3 5.0-10.0 Final [place] Diff 10*3/uL 10*3/uL [facility] L ab (Internal) : [address] ? ? BLD ? Rbc 4.42 4.10-5.30 Final [place] 10*6/uL 10*6/uL [facility] L ab (Internal) : [address], [place] ? ? BLD ? Hgb 14.3 g/dL 12.0-16.0 Final Nort h g/dL [facility] L ab (Internal) : [address] ? ? BLD ? Hct 44.3 % 37.0-47.0 Final [facility] L ab (Internal) : [address] ? ? BLD High Mcv 100.2 fL 80.0-96.0 Final [facility] Hospital L ab (Internal) : [address] ? ? BLD High Mch 32.4 pg 26.0-32.0 Final [facility] L ab (Internal) : [address] ? ? BLD ? Mchc 32.3 g/dL 31.0-35.0 Final Nort h g/dL [facility] L ab (Internal) : [address] t ? ? BLD High Rdw 15.9 % 11.5-14.5 Final [facility] L ab (Internal) : [address] t ? ? BLD ? Plt 250 130-450 Final [place] 10*3/uL 10*3/uL [facility] L ab (Internal) : [address] 10/10/2019 Differential, BLD High Polys 88 % 40-75 % Final [facility] L ab (Internal) : [address] t ? ? BLD ? Bands 0 % 0-5 % Final [facility] L ab (Internal) : [address] t ? ? BLD Low Lymphs 5 % 20-50 % Final [facility] L ab (Internal) : [address] t ? ? BLD ? [place] 3 % 2-10 % Final [facility] L ab (Internal) : [address] t ? ? BLD ? Eos 0 % 0-6 % Final [facility] L ab (Internal) : [address] ? ? BLD ? Baso 0 % 0-1 % Final [facility] L ab (Internal) : [address] t ? ? BLD ? Atyp Lymph 0 % ? Final [facility] L ab (Internal) : [address] ? ? BLD ? [place] 4 % ? Final [facility] L ab (Internal) : [address] t ? ? BLD ? Plts, Est. adequate adequate Final N [facility] L ab (Internal) : [address] t ? ? BLD ? RBC normal normal Final [place] Morphology Countr y Hospital L ab (Internal) : [address] 10/10/2019 Neutrophil BLD ? Anc-manual 9.02 ? Yudy l [place] Count, 10*3/uL [facility] Lab (Anc), Blood (Int ernal): [address] 10/10/2019 BMP, Serum or S High g/r 155 mg/dL 74-106 Fin al [place] Plasma mg/dL [facility] L ab (Internal) : [address] t ? ? S ? Bun 13 mg/dL 7-17 Final [place] mg/dL [facility] L ab (Internal) : [address] t ? ? S ? Crea 0.70 0.52-1.04 Final [place] mg/dL mg/dL [facility] L ab (Internal) : [address] t ? ? S ? Ca 9.8 mg/dL 8.4-10.2 Final [place] mg/dL [facility] L ab (Internal) : [address] t ? ? S ? Na 138 137-145 Final [place] mmol/L mmol/L [facility] L ab (Internal) : [address] t ? ? S ? K 4.8 3.5-5.1 Final [place] mmol/L mmol/L [facility] L ab (Internal) : [address] t ? ? S ? Cl 101 98-107 Final [place] mmol/L mmol/L [facility] L ab (Internal) : [address] t ? ? S ? Tco2 26.0 22.0-30.0 Final [place] mmol/L mmol/L [facility] L ab (Internal) : [address] 10/10/2019 Troponin I, S ? Trop <0.06 0.00-0.06 Final [place] Serum or NG/mL NG/mL [facility] L ab (Internal) : [address] 10/10/2019 Rapid Flu NASAL ? Final microbiol ? Final [place] (A+B) ogy [facility] results Hospital Lab (Internal) : [address] 08/31/2019 CMP, Serum or S High g/r 132 mg/dL 74-106 Fin al [place] Plasma mg/dL [facility] L ab (Internal) : [address] t ? ? S - Bun 7 mg/dL 7-17 Final [place] mg/dL [facility] L ab (Internal) : [address] t ? ? S - Crea 0.70 0.52-1.04 Final [place] mg/dL mg/dL [facility] L ab (Internal) : [address] t ? ? S - Ca 9.4 mg/dL 8.4-10.2 Final [place] mg/dL [facility] L ab (Internal) : [address] t ? ? S - Na 139 137-145 Final [place] mmol/L mmol/L [facility] L ab (Internal) : [address] t ? ? S - K 3.8 3.5-5.1 Final [place] mmol/L mmol/L [facility] L ab (Internal) : [address] t ? ? S - Cl 106 98-107 Final [place] mmol/L mmol/L [facility] L ab (Internal) : [address] t ? ? S - Tco2 22.0 22.0-30.0 Final [place] mmol/L mmol/L [facility] L ab (Internal) : [address] t ? ? S - Tp 7.0 g/dL 6.3-8.2 Final [place] g/dL [facility] L ab (Internal) : [address] t ? ? S - Alb 3.8 g/dL 3.5-5.0 Final [place] g/dL [facility] L ab (Internal) : [address] t ? ? S - Tbil 0.3 mg/dL 0.2-1.3 Final [place] mg/dL [facility] L ab (Internal) : [address] ? ? S - Alp 72 U/L 50-136 Final [place] U/L [facility] L ab (Internal) : [address] ? ? S - Alt (Sgpt) 27 U/L 9-52 U/L Final [facility] Hospital L ab (Internal) : [address] ? ? S - Ast (Sgot) 25 U/L 14-36 U/L Final No rth [facility] L ab (Internal) : [address] 08/31/2019 TSH, Serum or S - Tsh 1.24 0.47-4.68 Suman Hwang Plasma u[IU]/mL u[IU]/mL [facility] L ab (Internal) : [address] 08/31/2019 Neutrophil BLD - Anc-manual 1.84 ? Yudy roberson [place] Count, 10*3/uL [facility] Lab (Anc), Blood (Int ernal): [address] 08/31/2019 Differential, BLD - Polys 51 % 40-75 % Final [facility], Blood [facility] L ab (Internal) : [address] ? ? BLD - Bands 0 % 0-5 % Final [facility] L ab (Internal) : [address] ? ? BLD - Lymphs 26 % 20-50 % Final [facility] L ab (Internal) : [address] ? ? BLD High [place] 19 % 2-10 % Final [facility] L ab (Internal) : [address] ? ? BLD - Eos 1 % 0-6 % Final [facility] L ab (Internal) : [address] ? ? BLD - Baso 1 % 0-1 % Final [facility] L ab (Internal) : [address] t ? ? BLD - Atyp Lymph 1 % ? Final [facility] L ab (Internal) : [address] ? ? BLD - [place] 1 % ? Final [facility] L ab (Internal) : [address] ? ? BLD - Plts, Est. adequate adequate Final [facility] L ab (Internal) : [address] ? ? BLD ABNOR RBC abnormal normal Final [facility] L ab (Internal) : [address] t ? ? BLD - Aniso small ? Final [facility] L ab (Internal) : [address] stephanie ? ? BLD - Giant Plt rare ? Final [facility] L ab (Internal) : [address] 08/31/2019 CBC W/ Auto BLD Low Wbc 3.6 5.0-10.0 Final [place] Diff 10*3/uL 10*3/uL [facility] L ab (Internal) : [address] stephanie ? ? BLD - Rbc 4.37 4.10-5.30 Final [place] 10*6/uL 10*6/uL [facility] L ab (Internal) : [address] stephanie ? ? BLD - Hgb 13.6 g/dL 12.0-16.0 Final Nort h g/dL [facility] L ab (Internal) : [address] ? ? BLD - Hct 41.3 % 37.0-47.0 Final [facility] L ab (Internal) : [address] stephanie ? ? BLD - Mcv 94.5 fL 80.0-96.0 Final [facility] Hospital L ab (Internal) : [address] stephanie ? ? BLD - Mch 31.1 pg 26.0-32.0 Final [facility] L ab (Internal) : [address] stephanie ? ? BLD - Mchc 32.9 g/dL 31.0-35.0 Final Nort h g/dL [facility] L ab (Internal) : [address] ? ? BLD High Rdw 17.0 % 11.5-14.5 Final [facility] L ab (Internal) : [address] stephanie ? ? BLD - Plt 176 130-450 Final [place] 10*3/uL 10*3/uL [facility] L ab (Internal) : [address] 08/09/2019 TSH, Serum or S - Tsh 0.92 0.47-4.68 Fin [facility] Plasma u[IU]/mL u[IU]/mL [facility] L ab (Internal) : [address] 08/09/2019 RBC BLD - [place] small ? Final [place] Morphology, Count ry Blood Hospital L ab (Internal) : [address] ? ? BLD - Polychrom occasiona ? Final [facility] L ab (Internal) : [address] 08/09/2019 CMP, Serum or S High g/r 140 mg/dL 74-106 Fin al [place] Plasma mg/dL [facility] L ab (Internal) : [address] t ? ? S - Bun 9 mg/dL 7-17 Final [place] mg/dL [facility] L ab (Internal) : [address] ? ? S - Crea 0.70 0.52-1.04 Final [place] mg/dL mg/dL [facility] L ab (Internal) : [address] t ? ? S - Ca 9.7 mg/dL 8.4-10.2 Final [place] mg/dL [facility] L ab (Internal) : [address] ? ? S - Na 137 137-145 Final [place] mmol/L mmol/L [facility] L ab (Internal) : [address] ? ? S - K 4.0 3.5-5.1 Final [place] mmol/L mmol/L [facility] L ab (Internal) : [address] t ? ? S - Cl 103 98-107 Final [place] mmol/L mmol/L [facility] L ab (Internal) : [address] ? ? S - Tco2 23.0 22.0-30.0 Final [place] mmol/L mmol/L [facility] L ab (Internal) : [address] t ? ? S - Tp 7.5 g/dL 6.3-8.2 Final [place] g/dL [facility] L ab (Internal) : [address] ? ? S - Alb 4.1 g/dL 3.5-5.0 Final [place] g/dL [facility] L ab (Internal) : [address] t ? ? S - Tbil 0.3 mg/dL 0.2-1.3 Final [place] mg/dL [facility] L ab (Internal) : [address] t ? ? S - Alp 65 U/L 50-136 Final [place] U/L [facility] L ab (Internal) : [address] stephanie ? ? S - Alt (Sgpt) 31 U/L 9-52 U/L Final [facility] L ab (Internal) : [address] ? ? S - Ast (Sgot) 30 U/L 14-36 U/L Final No rth [facility] L ab (Internal) : [address] 08/09/2019 CBC W/ Auto BLD Low Wbc 4.7 5.0-10.0 Final [place] Diff 10*3/uL 10*3/uL [facility] L ab (Internal) : [address] ? ? BLD - Rbc 4.54 4.10-5.30 Final [place] 10*6/uL 10*6/uL [facility] L ab (Internal) : [address] ? ? BLD - Hgb 13.4 g/dL 12.0-16.0 Final Nort h g/dL [facility] L ab (Internal) : [address] ? ? BLD - Hct 41.4 % 37.0-47.0 Final [facility] Hospital L ab (Internal) : [address] ? ? BLD - Mcv 91.2 fL 80.0-96.0 Final [facility] Hospital L ab (Internal) : [address] ? ? BLD - Mch 29.5 pg 26.0-32.0 Final [facility] Hospital L ab (Internal) : [address] ? ? BLD - Mchc 32.4 g/dL 31.0-35.0 Final Nort h g/dL [facility] L ab (Internal) : [address] ? ? BLD High Rdw 15.7 % 11.5-14.5 Final [facility] Hospital L ab (Internal) : [address] ? ? BLD Low Plt 121 130-450 Final [place] 10*3/uL 10*3/uL [facility] ([facility] : [address] ? ? BLD - Anc 3.22 ? Final [place] 10*3/uL [facility] L [facility] (Internal) : [address] [place] t ? ? BLD - Neutro 68.2 % 40.0-75.0 Final [facility] L ab (Internal) : [address] [place] t ? ? BLD - Lymph 22.9 % 20.0-50.0 Final [facility] L ab (Internal) : [address] t ? ? BLD - [place] 8.1 % 2.0-10.0 Final [facility] L ab (Internal) : [address], [place] ? ? BLD Low Eos 0.0 % 1.0-6.0 % Final [facility] L ab (Internal) : [address] ? ? BLD - Baso 0.4 % 0.0-1.0 % Final [facility] L ab (Internal) : [address] ? ? BLD - Ig 0.4 % 0.0-0.9 % Final [facility] L ab (Internal) : [address] t 07/20/2019 TSH, Serum or S - Tsh 2.48 0.47-4.68 Fin [facility] Plasma u[IU]/mL u[IU]/mL [facility] L ab (Internal) : [address] 07/20/2019 Neutrophil BLD - Anc-manual 3.11 ? Yudy roberson [place] Count, 10*3/uL [facility] Hospital Lab (Anc), Blood (Int ernal): [address] t 07/20/2019 Differential, BLD - Polys 56 % 40-75 % Final [facility], Blood [facility] Hospital L ab (Internal) : [address] t ? ? BLD - Bands 2 % 0-5 % Final [facility] Hospital L ab (Internal) : [address] ? ? BLD - Lymphs 28 % 20-50 % Final [facility] L ab (Internal) : [address] t ? ? BLD High [place] 12 % 2-10 % Final [facility] L ab (Internal) : [address] t ? ? BLD - Eos 1 % 0-6 % Final [facility] ([facility]) : [address] ? ? BLD - Baso 0 % 0-1 % Final [facility] Hospital L ab (Internal) : [address] ? ? BLD - Atyp Lymph 1 % ? Final [facility] Hospital L ab (Internal) : [address] ? ? BLD - Plts, Est. adequate adequate Final N orth [facility] Hospital L ab (Internal) : [address] ? ? BLD - RBC normal normal Final [facility] Hospital L ab (Internal) : [address] 07/20/2019 CMP, Serum or S High g/r 114 mg/dL 74-106 Fin al [place] Plasma mg/dL [facility] Hospital L ab (Internal) : [address] ? ? S - Bun 9 mg/dL 7-17 Final [place] mg/dL [facility] L ab (Internal) : [address] ? ? S - Crea 0.70 0.52-1.04 Final [place] mg/dL mg/dL [facility] L ab (Internal) : [address] ? ? S - Ca 9.2 mg/dL 8.4-10.2 Final [place] mg/dL [facility] Hospital L ab (Internal) : [address] ? ? S - Na 138 137-145 Final [place] mmol/L mmol/L [facility] Hospital L ab (Internal) : [address] ? ? S - K 4.1 3.5-5.1 Final [place] mmol/L mmol/L [facility] Hospital L ab (Internal) : [address] ? ? S - Cl 105 98-107 Final [place] mmol/L mmol/L [facility] Hospital L ab (Internal) : [address] ? ? S - Tco2 25.0 22.0-30.0 Final [place] mmol/L mmol/L [facility] Hospital L ab (Internal) : [address] ? ? S - Tp 7.3 g/dL 6.3-8.2 Final [place] g/dL [facility] Hospital L ab (Internal) : [address] ? ? S - Alb 3.9 g/dL 3.5-5.0 Final [place] g/dL [facility] Hospital L ab (Internal) : [address] t ? ? S - Tbil 0.3 mg/dL 0.2-1.3 Final [place] mg/dL [facility] L ab (Internal) : [address] t ? ? S - Alp 80 U/L 50-136 Final [place] U/L [facility] L ab (Internal) : [address] t ? ? S - Alt (Sgpt) 30 U/L 9-52 U/L Final [facility] (Internal) : [address] t ? ? S - Ast (Sgot) 23 U/L 14-36 U/L Final No rth [facility] L [facility] (Internal) : [address] 07/20/2019 CBC W/ Auto BLD - Wbc 5.4 5.0-10.0 Final [place] Diff 10*3/uL 10*3/uL [facility] (Internal) : [address] ? ? BLD - Rbc 4.67 4.10-5.30 Final [place] 10*6/uL 10*6/uL [facility] Hospital L ab (Internal) : [address] t ? ? BLD - Hgb 13.8 g/dL 12.0-16.0 Final Nort h g/dL [facility] Hospital L ab (Internal) : [address] ? ? BLD - Hct 42.2 % 37.0-47.0 Final [facility] L ab (Internal) : [address] ? ? BLD - Mcv 90.4 fL 80.0-96.0 Final [facility] Hospital L ab (Internal) : [address] ? ? BLD - Mch 29.6 pg 26.0-32.0 Final [place] pg [facility] Hospital L ab (Internal) : [address] ? ? BLD - Mchc 32.7 g/dL 31.0-35.0 Final Nort h g/dL [facility] Hospital L ab (Internal) : [address] ? ? BLD - Rdw 13.6 % 11.5-14.5 Final [facility] L ab (Internal) : [address] ? ? BLD - Plt 171 130-450 Final [place] 10*3/uL 10*3/uL [facility] Hospital L ab (Internal) : [address] 05/11/2019 CBC W/ Auto BLD High Wbc 12.3 5.0-10.0 Final [place] Diff 10*3/uL 10*3/uL [facility] (Internal) : [address] ? ? BLD - Rbc 5.19 4.10-5.30 Final [place] 10*6/uL 10*6/uL [facility] Hospital L ab (Internal) : [address] ? ? BLD - Hgb 15.1 g/dL 12.0-16.0 Final Nort h g/dL [facility] Hospital L ab (Internal) : [address] ? ? BLD - Hct 46.2 % 37.0-47.0 Final [facility] L ab (Internal) : [address] ? ? BLD - Mcv 89.0 fL 80.0-96.0 Final [facility] Hospital L ab (Internal) : [address] ? ? BLD - Mch 29.1 pg 26.0-32.0 Final [place] pg [facility] L ab (Internal) : [address] ? ? BLD - Mchc 32.7 g/dL 31.0-35.0 Final Nort h g/dL [facility] L ab (Internal) : [address] ? ? BLD - Rdw 13.2 % 11.5-14.5 Final [facility] L ab (Internal) : [address] ? ? BLD - Plt 202 130-450 Final [place] 10*3/uL 10*3/uL [facility] Hospital L ab (Internal) : [address] 05/11/2019 BMP, Serum or S High g/r 135 mg/dL 74-106 Fin al [place] Plasma mg/dL [facility] (Internal) : [address] ? ? S - Bun 11 mg/dL 7-17 Final [place] mg/dL [facility] Hospital L ab (Internal) : [address], [place] ? ? S - Crea 0.70 0.52-1.04 Final [place] mg/dL mg/dL [facility] Hospital L ab (Internal) : [address] Catie t ? ? S - Ca 8.9 mg/dL 8.4-10.2 Final [place] mg/dL [facility] Hospital L ab (Internal) : [address] [place] t ? ? S - Na 140 137-145 Final [place] mmol/L mmol/L [facility] Hospital L ab (Internal) : [address], [place] t ? ? S Low K 3.4 3.5-5.1 Final [place] mmol/L mmol/L [facility] Hospital L ab (Internal) : [address] t ? ? S - Cl 106 98-107 Final [place] mmol/L mmol/L [facility] Hospital L ab (Internal) : [address] t ? ? S - Tco2 26.0 22.0-30.0 Final [place] mmol/L mmol/L [facility] Hospital L ab (Internal) : [address] 05/11/2019 Differential, BLD High Polys 91 % 40-75 % Final [facility] Blood [facility] Hospital L ab (Internal) : [address] t ? ? BLD - Bands 0 % 0-5 % Final [facility] L ab (Internal) : [address] t ? ? BLD Low Lymphs 4 % 20-50 % Final [facility] L ab (Internal) : [address] t ? ? BLD - [place] 4 % 2-10 % Final [facility] Hospital L ab (Internal) : [address] t ? ? BLD - Eos 1 % 0-6 % Final [facility] L ab (Internal) : [address] t ? ? BLD - Baso 0 % 0-1 % Final [facility] Hospital L ab (Internal) : [address] t ? ? BLD - Atyp Lymph 0 % ? Final [facility] Hospital L ab (Internal) : [address] t ? ? BLD - Plts, Est. adequate adequate Final N [facility] Hospital L ab (Internal) : [address] t ? ? BLD - RBC normal normal Final [facility] Countr y Hospital L ab (Internal) : [address] 05/11/2019 Neutrophil BLD - Anc-manual 11.21 ? Yudy da Carr Count, 10*3/uL [facility] Lab (Anc), Blood (Int ernal): [address] 04/27/2019 Benzodiazepin UR - Nordiazepa negative cutoff : Final [place] es, m-by GC/MS NG/mL 100 NG/mL Cou ntry Quantitative Hosp ital Lab Confirmation, (In ternal): Urine [address] t ? ? UR - Oxazepam-b negative cutoff: Final No rth y GC/MS NG/mL 100 NG/mL Countr y Hospital L ab (Internal) : [address] t ? ? UR - Lorazepam- negative cutoff: Final No rth by GC/MS NG/mL 100 NG/mL Count ry Hospital L ab (Internal) : [address] t ? ? UR - Temazepam- negative cutoff: Final No rth by GC/MS NG/mL 100 NG/mL Count ry Hospital L ab (Internal) : [address] t ? ? UR - Oh-ethyl-f negative cutoff: Final No rth lurazepam-b NG/mL 100 NG/mL Co untry y GC/MS Hospital Lab (Internal) : [address] t ? ? UR - 7-Nh-clona negative cutoff: Final No rth zepam-by NG/mL 100 NG/mL Count ry GC/MS Hospital L ab (Internal) : [address] t ? ? UR - Alpha negative cutoff: Final [place] Oh-alprazol NG/mL 100 NG/mL Co untry am-by GC/MS Hospi [facility] Lab (Internal) : [address] t ? ? UR - 7-Nh-fluni negative cutoff: Final No rth trazepam-by NG/mL 50 NG/mL Cou ntry GC/MS Hospital L ab (Internal) : [address] t ? ? UR - Alpha negative cutoff: Final [place] Oh-triazola NG/mL 100 NG/mL Co untry m-by GC/MS Hospit al Lab (Internal) : [address] ? ? UR - Benzodiaze negative. ? [facility] Lab ion (Internal) : [address] stephanie 02/05/2019 CMP, Serum or S High g/r 111 mg/dL 74-106 Fin al [place] Plasma mg/dL [facility] L [facility] (Internal) : [address] ? ? S - Bun 9 mg/dL 7-17 Final [facility] mg/dL [facility] L [facility] (Internal) : [address] ? ? S - Crea 0.70 0.52-1.04 Final [place] mg/dL mg/dL [facility] L [facility] (Internal) : [address] t ? ? S - Ca 9.3 mg/dL 8.4-10.2 Final [facility] mg/dL [facility] L [facility] (Internal) : [address] ? ? S Low Na 135 137-145 Final [place] mmol/L mmol/L [facility] L [facility] (Internal) : [address] ? ? S - K 4.2 3.5-5.1 Final [place] mmol/L mmol/L [facility] L [facility] (Internal) : [address] ? ? S - Cl 104 98-107 Final [place] mmol/L mmol/L [facility] L [facility] (Internal) : [address] ? ? S - Tco2 26.0 22.0-30.0 Final [place] mmol/L mmol/L [facility] L ab (Internal) : [address] ? ? S - Tp 7.2 g/dL 6.3-8.2 Final [facility] g/dL [facility] L [facility] (Internal) : [address] t ? ? S - Alb 4.2 g/dL 3.5-5.0 Final [facility] g/dL [facility] L [facility] (Internal) : [address] t ? ? S - Tbil 0.5 mg/dL 0.2-1.3 Final [facility] mg/dL [facility] L [facility] (Internal) : [address] t ? ? S - Alp 60 U/L 50-136 Final [facility] U/L [facility] (Internal) : [address] t ? ? S - Alt (Sgpt) 11 U/L 9-52 U/L Final Nor th [facility] Hospital L ab (Internal) : [address] t ? ? S - Ast (Sgot) 14 U/L 14-36 U/L Final No rth [facility] L [facility] (Internal) : [address] t 02/01/2019 CBC W/ Auto BLD High Wbc 13.7 5.0-10.0 Final [place] Diff 10*3/uL 10*3/uL [facility] L [facility] (Internal) : [address] t ? ? BLD High Rbc 5.45 4.10-5.30 Final [place] 10*6/uL 10*6/uL [facility] Hospital L ab (Internal) : [address] ? ? BLD - Hgb 15.9 g/dL 12.0-16.0 Final Nort h g/dL [facility] Hospital L ab (Internal) : [address] t ? ? BLD High Hct 50.2 % 37.0-47.0 Final [facility] Hospital L ab (Internal) : [address] ? ? BLD - Mcv 92.1 fL 80.0-96.0 Final [facility] Hospital L ab (Internal) : [address] ? ? BLD - Mch 29.2 pg 26.0-32.0 Final [facility] Hospital L ab (Internal) : [address] t ? ? BLD - Mchc 31.7 g/dL 31.0-35.0 Final Nort h g/dL [facility] Hospital L ab (Internal) : [address] t ? ? BLD - Rdw 13.2 % 11.5-14.5 Final [facility] Hospital L ab (Internal) : [address] ? ? BLD - Plt 188 130-450 Final [place] 10*3/uL 10*3/uL [facility] Hospital L ab (Internal) : [address] ? ? BLD - Anc 10.85 ? Final [place] 10*3/uL [facility] Hospital L ab (Internal) : [address] t ? ? BLD High Neutro 79.5 % 40.0-75.0 Final [facility] L ab (Internal) : [address] ? ? BLD Low Lymph 11.3 % 20.0-50.0 Final [facility] Hospital L ab (Internal) : [address] ? ? BLD - [place] 7.1 % 2.0-10.0 Final [facility] L ab (Internal) : [address] ? ? BLD Low Eos 0.9 % 1.0-6.0 % Final [facility] L ab (Internal) : [address] ? ? BLD - Baso 0.5 % 0.0-1.0 % Final [facility] L ab (Internal) : [address] ? ? BLD - Ig 0.7 % 0.0-0.9 % Final [facility] L ab (Internal) : [address] 01/02/2019 CBC W/ Auto BLD - Wbc 7.6 5.0-10.0 Final [place] Diff 10*3/uL 10*3/uL [facility] Hospital L ab (Internal) : [address] ? ? BLD - Rbc 5.09 4.10-5.30 Final [place] 10*6/uL 10*6/uL [facility] Hospital L ab (Internal) : [address] t ? ? BLD - Hgb 14.7 g/dL 12.0-16.0 Final Nort h g/dL [facility] Hospital L ab (Internal) : [address] ? ? BLD - Hct 45.8 % 37.0-47.0 Final [facility] L ab (Internal) : [address] t ? ? BLD - Mcv 90.0 fL 80.0-96.0 Final [facility] Hospital L ab (Internal) : [address] t ? ? BLD - Mch 28.9 pg 26.0-32.0 Final [facility] Hospital L ab (Internal) : [address] t ? ? BLD - Mchc 32.1 g/dL 31.0-35.0 Final Nort h g/dL [facility] Hospital L ab (Internal) : [address] t ? ? BLD - Rdw 12.4 % 11.5-14.5 Final [facility] Hospital L ab (Internal) : [address] t ? ? BLD - Plt 201 130-450 Final [place] 10*3/uL 10*3/uL [facility] (Internal) : [address] t ? ? BLD - Anc 5.09 ? Final [place] 10*3/uL [facility] Hospital L ab (Internal) : [address] t ? ? BLD - Neutro 66.6 % 40.0-75.0 Final [facility] Hospital L ab (Internal) : [address] t ? ? BLD - Lymph 22.3 % 20.0-50.0 Final [facility] Hospital L ab (Internal) : [address] t ? ? BLD - [place] 8.4 % 2.0-10.0 Final [facility] Hospital L ab (Internal) : [address] t ? ? BLD - Eos 1.6 % 1.0-6.0 % Final [facility] Hospital L ab (Internal) : [address] t ? ? BLD - Baso 0.8 % 0.0-1.0 % Final [facility] Hospital L ab (Internal) : [address] t ? ? BLD - Ig 0.3 % 0.0-0.9 % Final [facility] Hospital L ab (Internal) : [address] t 01/02/2019 BMP, Serum or S - g/r 106 mg/dL 74-106 Fin al [place] Plasma mg/dL [facility] (Internal) : [address] t ? ? S - Bun 10 mg/dL 7-17 Final [place] mg/dL [facility] Hospital L ab (Internal) : [address] t ? ? S - Crea 0.70 0.52-1.04 Final [place] mg/dL mg/dL [facility] Hospital L ab (Internal) : [address] t ? ? S - Ca 9.1 mg/dL 8.4-10.2 Final [facility] mg/dL [facility] (Internal) : [address] ? ? S - Na 137 137-145 Final [place] mmol/L mmol/L [facility] L [facility] (Internal) : [address] ? ? S - K 3.9 3.5-5.1 Final [place] mmol/L mmol/L [facility] L [facility] (Internal) : [address] ? ? S - Cl 105 98-107 Final [place] mmol/L mmol/L [facility] Hospital L ab (Internal) : [address] ? ? S - Tco2 24.0 22.0-30.0 Final [place] mmol/L mmol/L [facility] L [facility] (Internal) : [address] 01/02/2019 Troponin I, S - Trop <0.06 0.00-0.06 Final [place] Serum or NG/mL NG/mL [facility] Plasma Hospital L ab (Internal) : [address] 09/18/2018 TSH, Serum or S - Tsh 2.57 0.47-4.68 Fin al [place] Plasma u[IU]/mL u[IU]/mL Countr y Hospital L ab (Internal) : [address] 08/31/2018 Benzodiazepin UR - Nordiazepa negative cutoff : Final [place] es, m-by GC/MS NG/mL 100 NG/mL Cou ntry Quantitative Hosp ital Lab Confirmation, (In ternal): Urine [address] ? ? UR - Oxazepam-b negative cutoff: Final No rth y GC/MS NG/mL 100 NG/mL Countr y Hospital L ab (Internal) : [address] ? ? UR - Lorazepam- negative cutoff: Final No rth by GC/MS NG/mL 100 NG/mL Count ry Hospital L ab (Internal) : [address] ? ? UR - Temazepam- negative cutoff: Final No rth by GC/MS NG/mL 100 NG/mL Count ry Hospital L ab (Internal) : [address] ? ? UR - Oh-ethyl-f negative cutoff: Final No rth lurazepam-b NG/mL 100 NG/mL Co untry y GC/MS Hospital Lab (Internal) : [address] ? ? UR - 7-Nh-clona negative cutoff: Final No rth zepam-by NG/mL 100 NG/mL Count ry GC/MS Hospital L ab (Internal) : [address], Catie t ? ? UR - Alpha negative cutoff: Final [place] Oh-alprazol NG/mL 100 NG/mL Co untry am-by GC/MS Hospi [facility] Lab (Internal) : [address] ? ? UR - 7-Nh-fluni negative cutoff: Final No rth trazepam-by NG/mL 50 NG/mL Cou ntry GC/MS Hospital L ab (Internal) : [address] ? ? UR - Alpha negative cutoff: Final [place] Oh-triazola NG/mL 100 NG/mL Co untry m-by GC/MS Hospit al Lab (Internal) : [address] t ? ? UR - Benzodiaze negative. ? [facility] Lab ion (Internal) : [address] t 06/02/2018 Bacteria N/A - Final microbiol ? Final N orth Identificatio ogy Cou ntry n, results Hospital Lab Unspecified (Inte rnal): Specimen [address] [place] t 06/02/2018 Acid Fast SPT - Specimen (see ? Final [place] Stain Description note) Count Hospital L ab (Internal) : [address] ? ? SPT - Acid Fast (see ? Final North note) [facility] (Internal) : [address] t ? ? SPT - Report (see ? Final [place] Status note) [facility] (Internal) : [address] t 06/02/2018 Cytology, TISS - Report results ? Final N orth Non-gynecolog below Cou ntry ical, Hospital L Unspecified (Inte rnal): Specimen [address] t 06/02/2018 Pathology TISS - Report results ? Final N orth Study below [facility] (Internal) : [address] t 06/02/2018 Fungus, SPT - Specimen (see ? Final No rth Culture, Description note) Cou ntry Unspecified Hospi chuck Lab Specimen (Interna l): [address] [place] ? ? SPT - Fungus (see ? Final [place] Smear note) [facility] Hospital L ab (Internal) : [address] ? ? SPT - Result (see ? Final North note) [facility] ab (Internal) : [address] ? ? SPT - Report (see ? Final [place] Status note) [facility] ab (Internal) : [address] 06/02/2018 Culture, Afb SPT - Specimen (see ? Yudy Carr (Acid-fast Description note) C ountry Bacilli) Hospital Lab (Internal) : [address] [place] [address] ? ? SPT - Result (see ? Final North note) [facility] ab (Internal) : [address] ? ? SPT - Report (see ? Final [place] Status note) [facility] ab (Internal) : [address] [place] 05/29/2018 CBC W/ Auto BLD - Wbc 7.6 5.0-10.0 Final [place] Diff 10*3/uL 10*3/uL [facility] L ab (Internal) : [address] ? ? BLD High Rbc 5.32 4.10-5.30 Final [place] 10*6/uL 10*6/uL [facility] L ab (Internal) : [address] [place] ? ? BLD - Hgb 15.3 g/dL 12.0-16.0 Final Nort h g/dL [facility] L ab (Internal) : [address], [place] ? ? BLD High Hct 47.2 % 37.0-47.0 Final [place] % [facility] Hospital L ab (Internal) : [address], [place] ? ? BLD - Mcv 88.7 fL 80.0-96.0 Final [place] fL [facility] L ab (Internal) : [address], [place] ? ? BLD - Mch 28.8 pg 26.0-32.0 Final [place] pg [facility] ab (Internal) : [address] [place] ? ? BLD - Mchc 32.4 g/dL 31.0-35.0 Final Nort h g/dL [facility] L ab (Internal) : [address], Catie brown ? ? BLD - Rdw 12.6 % 11.5-14.5 Final [facility] L ab (Internal) : [address] ? ? BLD - Plt 196 130-450 Final [place] 10*3/uL 10*3/uL [facility] Hospital L ab (Internal) : [address] 05/29/2018 Creatinine, S - Crea 0.80 0.52-1.04 Final [place] Serum or mg/dL mg/dL [facility] Plasma Hospital L ab (Internal) : [address] 05/29/2018 Differential, BLD - Polys 50 % 40-75 % Final [place] Manual, Blood Cou [facility] Hospital L ab (Internal) : [address] stephanie ? ? BLD - Bands 0 % 0-5 % Final [facility] L ab (Internal) : [address] ? ? BLD - Lymphs 32 % 20-50 % Final [facility] L ab (Internal) : [address] stephanie ? ? BLD High [place] 12 % 2-10 % Final [facility] L ab (Internal) : [address] ? ? BLD - Eos 3 % 0-6 % Final [facility] L ab (Internal) : [address] stephanie ? ? BLD High Baso 3 % 0-1 % Final [facility] L ab (Internal) : [address] ? ? BLD - Atyp Lymph 0 % ? Final [facility] L ab (Internal) : [address] stephanie ? ? BLD - Plts, Est. adequate adequate Final N [facility] L ab (Internal) : [address] stephanie ? ? BLD - RBC normal normal Final [facility] Hospital L ab (Internal) : [address] 05/29/2018 Neutrophil BLD - Anc-manual 3.79 ? Yudy l [place] Count, 10*3/uL [facility] Hospital Lab (Anc), Blood (Int ernal): [address] 05/29/2018 Prothrombin BLD - Pt 10.2 S 9.1-11.7 Final [facility] S [facility] (Internal) : [address], [place] ? ? BLD - Inr 1.0 ? Final North [facility] (Internal) : [address] [place] 04/21/2018 Pathology TISS - Report results ? Final N orth Study below [facility] (Internal) : [address] [place] 04/21/2018 Cytology, TISS - Report results ? Final N orth Non-gynecolog below Cou ntry ical, [facility] Unspecified (Inte rnal): Specimen [address], [place] 04/21/2018 Bacteria N/A - Final microbiol ? Final N orth Identificatio ogy Cou ntry n, results Hospital Lab Unspecified (Inte rnal): Specimen [address], [place] 04/21/2018 Culture, [employer] SPT - Specimen (see ? Yudy Carr (Acid-fast Description note) C ountry Bacilli) Hospital Lab (Internal) : [address], [place] ? ? SPT - Result (see ? Final North note) [facility] (Internal) : [address] ? ? SPT - Report (see ? Final North Status note) [facility] (Internal) : [address] [place] 04/21/2018 Fungus, SPT - Specimen (see ? Final No rth Culture, Description note) Cou ntry Unspecified Hospi chuck Lab Specimen (Interna l): [address], [place] ? ? SPT - Fungus (see ? Final North Smear note) [facility] (Internal) : [address] ? ? SPT - Result (see ? Final North note) [facility] (Internal) : [address], [place] ? ? SPT - Report (see ? Final North Status note) [facility] (Internal) : [address] [place] 04/21/2018 Acid Fast SPT - Specimen (see ? Final North Stain Description note) [facility] (Internal) : [address], [place] ? ? SPT - Acid Fast (see ? Final North note) [facility] (Internal) : [address] ? ? SPT - Report (see ? Final North Status note) [facility] : [address] Catie brown 04/21/2018 -[facility] MISC - [id number] see below ? Final No rth Refrigerate Co untry 8 07:59 Hospital Lab pm (Internal) : [address] Catie brown 04/21/2018 -[facility] MISC - [id number] see below ? Final No rth Refrigerate Co untry 8 08:49 Hospital Lab AM (Internal) : [address] Cat[address] t 04/21/2018 -[facility] MIS - [id number] see below ? Final No rth Refrigerate Co untry 8 01:04 Hospital Lab AM (Internal) : [address] 04/15/2018 CBC W/ Auto BLD High Wbc 13.2 5.0-10.0 Final [place] Diff 10*3/uL 10*3/uL [facility] Hospital L ab (Internal) : [address] ? ? BLD - Rbc 5.19 4.10-5.30 Final [place] 10*6/uL 10*6/uL [facility] L ab (Internal) : [address] ? ? BLD - Hgb 15.0 g/dL 12.0-16.0 Final Nort h g/dL [facility] Hospital L ab (Internal) : [address] ? ? BLD - Hct 46.7 % 37.0-47.0 Final [facility] Hospital L ab (Internal) : [address] ? ? BLD - Mcv 90.0 fL 80.0-96.0 Final [facility] Hospital L ab (Internal) : [address] ? ? BLD - Mch 28.9 pg 26.0-32.0 Final [place] pg [facility] Hospital L ab (Internal) : [address] ? ? BLD - Mchc 32.1 g/dL 31.0-35.0 Final Nort h g/dL [facility] Hospital L ab (Internal) : [address] ? ? BLD - Rdw 13.2 % 11.5-14.5 Final [facility] Hospital L ab (Internal) : [address] ? ? BLD - Plt 215 130-450 Final [place] 10*3/uL 10*3/uL [facility] L ab (Internal) : [address] 04/15/2018 Creatinine, S - Crea 0.80 0.52-1.04 Final [place] Serum or mg/dL mg/dL [facility] Hospital L ab (Internal) : [address] 04/15/2018 Prothrombin BLD - Pt 10.9 S 9.1-11.7 Final [facility] L ab (Internal) : [address] ? ? BLD - Inr 1.1 ? Final [facility] L ab (Internal) : [address] 04/15/2018 Differential, BLD High Polys 77 % 40-75 % Final [facility] Blood [facility] Hospital L ab (Internal) : [address] ? ? BLD - Bands 0 % 0-5 % Final [facility] L ab (Internal) : [address] ? ? BLD Low Lymphs 17 % 20-50 % Final [facility] L ab (Internal) : [address] ? ? BLD - [place] 4 % 2-10 % Final [facility] L ab (Internal) : [address] ? ? BLD - Eos 0 % 0-6 % Final [facility] L ab (Internal) : [address] ? ? BLD - Baso 1 % 0-1 % Final [facility] L ab (Internal) : [address] ? ? BLD - Atyp Lymph 0 % ? Final [facility] L ab (Internal) : [address] ? ? BLD - Myelo 1 % ? Final [facility] L ab (Internal) : [address] ? ? BLD - Plts, Est. adequate adequate Final [facility] L ab (Internal) : [address] ? ? BLD - RBC normal normal Final [facility] L ab (Internal) : [address] 04/15/2018 Neutrophil BLD - Anc-manual 10.18 ? Yudy da [place] Count, 10*3/uL [facility] Hospital Lab (Anc), Blood (Int ernal): [address] t 10/02/2017 Venipuncture BLD ? Venpn* ? ? Final [facility] L ab (Internal) : [address] t 10/02/2017 CBC W/ Auto BLD ? Wbc 9.1 5.0-10.0 Final [place] Diff 10*3/uL 10*3/uL [facility] L ab (Internal) : [address] t ? ? BLD High Rbc 5.46 4.10-5.30 Final [place] 10*6/uL 10*6/uL [facility] Hospital L ab (Internal) : [address] t ? ? BLD ? Hgb 15.7 g/dL 12.0-16.0 Final Nort h g/dL [facility] L ab (Internal) : [address] t ? ? BLD High Hct 48.9 % 37.0-47.0 Final [facility] L ab (Internal) : [address] t ? ? BLD ? Mcv 89.6 fL 80.0-96.0 Final [facility] L ab (Internal) : [address] t ? ? BLD ? Mch 28.8 pg 26.0-32.0 Final [facility] L ab (Internal) : [address] t ? ? BLD ? Mchc 32.1 g/dL 31.0-35.0 Final Nort h g/dL [facility] L ab (Internal) : [address] t ? ? BLD ? Rdw 13.2 % 11.5-14.5 Final [facility] L ab (Internal) : [address] ? ? BLD ? Plt 234 130-450 Final [place] 10*3/uL 10*3/uL [facility] L ab (Internal) : [address] t ? ? BLD ? Anc 6.10 ? Final [place] 10*3/uL [facility] L ab (Internal) : [address] t ? ? BLD ? Neutro 67.1 % 40.0-75.0 Final [facility] : [address], [place] ? ? BLD ? Lymph 21.6 % 20.0-50.0 Final [facility] Hospital L ab (Internal) : [address] t ? ? BLD ? [place] 9.0 % 2.0-10.0 Final [facility] L ab (Internal) : [address] t ? ? BLD ? Eos 1.0 % 1.0-6.0 % Final [facility] L ab (Internal) : [address] ? ? BLD ? Baso 0.9 % 0.0-1.0 % Final [facility] L ab (Internal) : [address] ? ? BLD ? Ig 0.4 % 0.0-0.9 % Final [facility] L ab (Internal) : [address] t 09/11/2017 Pap Test, MISC ? Hpv see ? Final [facility] Thinprep, report [facility] Cervical Hospital Lab (Internal) : [address] t ? ? MISC ? Pap see ? Final North report [facility] Hospital L ab (Internal) : [address] t ? ? MISC ? Report (added) ? Correcte North results d [facility] Hospital L ab (Internal) : [address] t 07/04/2017 Venipuncture BLD ? Venpn* ? ? Final [facility] L ab (Internal) : [address] 07/04/2017 CBC W/ Auto BLD ? Wbc 8.2 5.0-10.0 Final [place] Diff 10*3/uL 10*3/uL [facility] Hospital L ab (Internal) : [address] t ? ? BLD High Rbc 5.50 4.10-5.30 Final [place] 10*6/uL 10*6/uL [facility] Hospital L ab (Internal) : [address] t ? ? BLD ? Hgb 15.7 g/dL 12.0-16.0 Final [facility] g/[facility] L ab (Internal) : [address] t ? ? BLD High Hct 48.4 % 37.0-47.0 Final [facility] Hospital L ab (Internal) : [address] ? ? BLD ? Mcv 88.0 fL 80.0-96.0 Final [facility] Hospital L ab (Internal) : [address] ? ? BLD ? Mch 28.5 pg 26.0-32.0 Final [place] pg [facility] L ab (Internal) : [address] ? ? BLD ? Mchc 32.4 g/dL 31.0-35.0 Final Nort h g/dL [facility] Hospital L ab (Internal) : [address] ? ? BLD ? Rdw 12.6 % 11.5-14.5 Final [facility] L ab (Internal) : [address] ? ? BLD ? Plt 219 130-450 Final North 10*3/uL 10*3/uL [facility] Hospital L ab (Internal) : [address] t ? ? BLD ? Anc 5.33 ? Final [place] 10*3/uL [facility] Hospital L ab (Internal) : [address] ? ? BLD ? Neutro 65.1 % 40.0-75.0 Final [facility] L ab (Internal) : [address] ? ? BLD ? Lymph 23.7 % 20.0-50.0 Final [facility] L ab (Internal) : [address] ? ? BLD ? [place] 9.3 % 2.0-10.0 Final [facility] L ab (Internal) : [address] t ? ? BLD Low Eos 0.7 % 1.0-6.0 % Final [facility] L ab (Internal) : [address] ? ? BLD ? Baso 1.0 % 0.0-1.0 % Final [facility] L ab (Internal) : [address] ? ? BLD ? Ig 0.2 % 0.0-0.9 % Final [facility] L ab (Internal) : [address] t 07/04/2017 BMP, Serum or S ? g/r 104 mg/dL 74-106 Fin al North Plasma mg/dL [facility] Hospital L ab (Internal) : [address], [place] ? ? S ? Bun 11 mg/dL 7-17 Final North mg/dL [facility] L ab (Internal) : [address] t ? ? S ? Crea 0.80 0.52-1.04 Final North mg/dL mg/dL [facility] L ab (Internal) : [address] t ? ? S ? Ca 9.0 mg/dL 8.4-10.2 Final [place] mg/dL [facility] L ab (Internal) : [address] t ? ? S ? Na 138 137-145 Final [place] mmol/L mmol/L [facility] L ab (Internal) : [address] t ? ? S ? K 4.2 3.5-5.1 Final [place] mmol/L mmol/L [facility] L ab (Internal) : [address] t ? ? S ? Cl 105 98-107 Final [place] mmol/L mmol/L [facility] L ab (Internal) : [address] t ? ? S ? Tco2 22.0 22.0-30.0 Final [place] mmol/L mmol/L [facility] L ab (Internal) : [address] 07/04/2017 H Pylori Urea MISC ? H. Pylori negative negativ e Final [place] Breath Test, C Urea Coun try Co2 Infrared Breath Test Hospital Lab (Internal) : [address] 04/23/2017 Venipuncture BLD ? Venpn* ? ? Final [facility] L ab (Internal) : [address] 04/23/2017 Neutrophil BLD ? Anc-manual 6.20 ? Yudy l [place] Count, 10*3/uL [facility] Absolute Hospital Lab (Anc), Blood (Int ernal): [address] 04/23/2017 Differential, BLD ? Polys 64 % 40-75 % Final [facility], Blood [facility] L ab (Internal) : [address] ? ? BLD ? Bands 0 % 0-5 % Final [facility] L ab (Internal) : [address] ? ? BLD ? Lymphs 20 % 20-50 % [facility] : [address] ? ? BLD High [place] 11 % 2-10 % Final [facility] L ab (Internal) : [address] ? ? BLD ? Eos 4 % 0-6 % Final [facility] L ab (Internal) : [address] ? ? BLD ? Baso 1 % 0-1 % Final [facility] L ab (Internal) : [address] ? ? BLD ? Atyp Lymph 0 % ? Final [facility] L ab (Internal) : [address] ? ? BLD ? Plts, Est. adequate adequate Final N [facility] L ab (Internal) : [address] ? ? BLD ? RBC normal normal Final [facility] L ab (Internal) : [address] 04/23/2017 BNP (B-type S ? Nt-probnp <50 pg/mL 0-125 F inal [place] Natriuretic pg/mL Count ry Peptide), [facility] Pro[facility]ormone (Inter nal): N-terminal, [address], [place] Immunoassay, Blood 04/23/2017 TSH, Serum or S ? Tsh 2.07 0.47-4.68 Fin al [place] Plasma u[IU]/mL u[IU]/mL [facility] L ab (Internal) : [address] 04/23/2017 CMP, Serum or S ? g/r 99 mg/dL 74-106 Yudy l [place] Plasma mg/dL [facility] L ab (Internal) : [address] ? ? S ? Bun 10 mg/dL 7-17 Final [place] mg/dL [facility] L ab (Internal) : [address] ? ? S ? Crea 0.70 0.52-1.04 Final [place] mg/dL mg/dL [facility] L ab (Internal) : [address] ? ? S ? Ca 8.8 mg/dL 8.4-10.2 Final [place] mg/dL [facility] L ab (Internal) : [address] ? ? S ? Na 139 137-145 Final [place] mmol/L mmol/L [facility] (Internal) : [address] t ? ? S ? K 3.5 3.5-5.1 Final [place] mmol/L mmol/L [facility] (Internal) : [address] t ? ? S ? Cl 105 98-107 Final [place] mmol/L mmol/L [facility] (Internal) : [address] ? ? S ? Tco2 23.0 22.0-30.0 Final [place] mmol/L mmol/L [facility] (Internal) : [address] t ? ? S ? Tp 7.1 g/dL 6.3-8.2 Final [place] g/dL [facility] (Internal) : [address] ? ? S ? Alb 4.1 g/dL 3.5-5.0 Final [place] g/dL [facility] (Internal) : [address] ? ? S ? Tbil 0.5 mg/dL 0.2-1.3 Final [place] mg/dL [facility] (Internal) : [address] t ? ? S Low Alp 48 U/L 50-136 Final [place] U/L [facility] (Internal) : [address] ? ? S ? Alt (Sgpt) 17 U/L 9-52 U/L Final [facility] (Internal) : [address] ? ? S Low Ast (Sgot) 11 U/L 14-36 U/L Final No rth [facility] (Internal) : [address] t 04/23/2017 CBC W/ Auto BLD ? Wbc 9.7 5.0-10.0 Final [place] Diff 10*3/uL 10*3/uL [facility] (Internal) : [address] t ? ? BLD ? Rbc 5.07 4.10-5.30 Final North 10*6/uL 10*6/uL [facility] (Internal) : [address] t ? ? BLD ? Hgb 14.8 g/dL 12.0-16.0 Final Nort h g/dL [facility] (Internal) : [address] t ? ? BLD ? Hct 45.5 % 37.0-47.0 Final North % [facility] L ab (Internal) : [address] ? ? BLD ? Mcv 89.7 fL 80.0-96.0 Final North fL [facility] L ab (Internal) : [address] ? ? BLD ? Mch 29.2 pg 26.0-32.0 Final [place] pg [facility] L ab (Internal) : [address] t ? ? BLD ? Mchc 32.5 g/dL 31.0-35.0 Final Nort h g/dL [facility] L ab (Internal) : [address] t ? ? BLD ? Rdw 13.3 % 11.5-14.5 Final North % [facility] L ab (Internal) : [address] ? ? BLD ? Plt 206 130-450 Final [place] 10*3/uL 10*3/uL [facility] L ab (Internal) : [address] 10/01/2016 Pathology TISS ? Report results ? Final N orth Study below [facility] L ab (Internal) : [address] Past Encounters 04/27/2021 Asthma; Pulmonary Emphysema; Pneumonitis ; Malignant Tumor of Lung Zoya Webb MD: [address] [place] [phone], Ph. 03/22/2021 Asthma; Chronic Obstructive Lung Disease ; Primary Malignant Neoplasm of Upper Lobe of Right Lung; Pneumonitis Zoya Webb MD: [address] [place] [address], Ph. 03/09/2021 Primary Malignant Neoplasm of Upper Lobe of Right Lung; Acute Exacerbation of Chronic Obstructive Airways Disease; Acute Exacerbation of Asthma; Ex-smoker Zoya Webb MD: [address] [place] [address], Ph. 02/16/2021 Type 2 Diabetes Mellitus without Complic ation; Screening for Cardiovascular System Disease Vitor Fleming MD: [address] [place] [phone], Ph. 02/05/2021 Type 2 Diabetes Mellitus without Complic ation; Primary Malignant Neoplasm of Lung Vitor Felming MD: [address] [place] [phone], Ph. 01/03/2021 Type 2 Diabetes Mellitus without Complic ation; Nausea; Migraine Vitor Fleming MD: [address] [place] [phone], Ph. 12/21/2020 Chronic Obstructive Lung Disease; Hyperg lycemia; Candidiasis of Mouth Vitor Fleming MD: [address] [place] [phone], Ph. 11/22/2020 Type 2 Diabetes Mellitus without Complic ation; Tachycardia Vitor Fleming MD: [address] [place] [phone], Ph. 10/23/2020 Abnormal Cervical Papanicolaou Smear Omari Grissom MD: [address] [place] [phone], Ph. 10/18/2020 Chronic Obstructive Lung Disease; Tachyc ardia Vitor Fleming MD: [address] [place] [phone], Ph. 10/05/2020 Acute Exacerbation of Chronic Obstructiv e Airways Disease JERONIMO Scott: [address] [place] [phone], Ph. 09/18/2020 Gynecologic Examination; Screening Mammo graphy Clementina Culver CNM: [address] [place] [phone], Ph. 08/21/2020 Administration of Tetanus Vaccine; Edema ; Chronic Obstructive Lung Disease Vitor Fleming MD: [address] [place] [phone], Ph. 07/26/2020 Generalized Anxiety Disorder; Chronic Ob structive Lung Disease Vitor Fleming MD: [address] [place] [phone], Ph. 06/23/2020 Insomnia; Dyspnea on Exertion; Dyspnea Vitor Fleming MD: [address] [place] [phone], Ph. 06/16/2020 Dyspnea on Exertion Vitor Fleming MD: [address] [place] [phone], Ph. 06/15/2020 Acute Exacerbation of Chronic Obstructiv e Airways Disease; Acute Severe Exacerbation of Severe Persistent Asthma Tonia Alford PA: [address] [place] [phone], Ph. 06/07/2020 Acute Exacerbation of Chronic Obstructiv e Airways Disease; Asthma; Migraine; Gastroesophageal Reflux Disease without Esophagitis; Restless Legs; Osteoporosis Tonia Alford PA: [address] [place] [phone], Ph. 05/03/2020 Asthma; Primary Malignant Neoplasm of Up per Lobe of Right Lung Deyanira Garza MD: [address] [place] [phone], Ph. 04/18/2020 Adult Health Examination; Screening for Osteoporosis; Gastroesophageal Reflux Disease; Restless Legs; Acute Exacerbation of Asthma Tonia Alford PA: [address] [place] [phone], Ph. 04/10/2020 Migraine; Neck Pain; Anxiety; Asthma; Pr imary Malignant Neoplasm of Upper Lobe of Right Lung; Posterior Rhinorrhea; Medication Monitoring JERONIMO Dean: [address] [place] [phone], Ph. 04/05/2020 Asthma; Atopic Dermatitis LEAH RodriguezP: [address] [place] [address], Ph. 02/09/2020 Asthma; Primary Malignant Neoplasm of Up per Lobe of Right Lung Deyanira Garza MD: [address] [place] [address], Ph. 01/24/2020 Primary Malignant Neoplasm of Upper Lobe of Right Lung; Asthma Deyanira Garza MD: [address] [place] [address], Ph. 12/01/2019 Asthma; Primary Malignant Neoplasm of Up per Lobe of Right Lung Deyanira Garza MD: [address] [place] [address], Ph. Social History Tobacco Smoking Status Former Smoker Notes: 08/2019 Vaccine List Vaccine Type COVID-19, mRNA, LNP-S, PF, 100 mcg/0.5 m L dose 11/09/2020?100 mcg 12/08/2020?0.5 mL 04/27/2021?0.5 mL DT (pediatric) 08/21/2020?0.5 mL influenza, injectable, quadrivalent, pre servative free 07/24/2017?0.5 mL 05/27/2018?0.5 mL 06/23/2019 influenza, seasonal, injectable 06/05/2020 influenza, seasonal, injectable, preserv ative free 06/09/2009?0.5 mL 05/29/2010?0.5 mL 06/11/2011?0.5 mL 06/03/2012?0.5 mL 07/14/2013?0.5 mL 06/28/2014?0.5 mL 05/10/2015?0.5 mL 06/13/2016?0.5 mL novel [id number], all formulation s 08/29/2009?0.5 mL pneumococcal polysaccharide [id number] 05/30/2016?0.5 mL Td (adult), adsorbed 08/18/1996 07/01/2006 Tdap 08/17/2007 varicella Plan of Care Reminders Provider Appointments None ? ? recorded. Lab None ? ? recorded. Referral None ? ? recorded. Procedures None ? ? recorded. Surgeries None ? ? recorded. Imaging None ? ? recorded. Vitals 04/27/2021 11:30AM Follow Up 30 Height Weight BMI Blood Pressure 157.48 cm 70 kg 28.2 kg/m2 110/76 mm[Hg] 03/22/2021 12:30PM Follow Up 30 Height Weight BMI Blood Pressure 157.48 cm 71.3 kg 28.8 kg/m2 112/68 mm[Hg] 03/09/2021 01:00PM Consult 30 Height Weight BMI Blood Pressure 157.48 cm 71 kg 28.6 kg/m2 119/72 mm[Hg] 02/16/2021 12:20PM Follow Up 20 Height Weight BMI Blood Pressure 160.02 cm 71.27 kg 27.8 kg/m2 110/70 mm[Hg] 02/05/2021 09:00AM Follow Up 20 Height Weight BMI Blood Pressure 160.02 cm 70.31 kg 27.5 kg/m2 106/70 mm[Hg] 01/03/2021 01:00PM Follow Up 20 Height Weight BMI Blood Pressure 160.02 cm 71.67 kg 28 kg/m2 100/80 mm[Hg] 12/21/2020 03:00PM Acute 20 Height Weight Blood Pressure 160.02 cm 120/80 mm[Hg] 11/22/2020 01:00PM Follow Up 20 Height Weight Blood Pressure 160.02 cm 100/80 mm[Hg] 10/23/2020 02:00PM Procedure 30 Height Weight BMI 160.02 cm 68.04 kg 26.6 kg/m2 10/18/2020 01:00PM Follow Up 20 Height Weight BMI Blood Pressure 160.02 cm 68.49 kg 26.7 kg/m2 104/78 mm[Hg] 10/05/2020 03:40PM Acute 20 Height Weight BMI Blood Pressure 160.02 cm 69.08 kg 27 kg/m2 120/74 mm[Hg] 09/18/2020 02:30PM HME 30 Height Weight BMI Blood Pressure 160.02 cm 70.31 kg 27.5 kg/m2 118/72 mm[Hg] 08/21/2020 12:20PM Follow Up 20 Height Weight BMI Blood Pressure 160.02 cm 68.76 kg 26.9 kg/m2 122/82 mm[Hg] 07/26/2020 12:20PM Follow Up 20 Height Weight BMI Blood Pressure 160.02 cm 67.22 kg 26.3 kg/m2 112/76 mm[Hg] 06/23/2020 11:00AM Follow Up 20 Height Weight Blood Pressure 160.02 cm 104/70 mm[Hg] 06/16/2020 12:20PM Acute 20 Height Blood Pressure 160.02 cm 108/72 mm[Hg] 06/15/2020 08:40AM Follow Up 20 Height Weight BMI Blood Pressure 160.02 cm 65.59 kg 25.6 kg/m2 108/60 mm[Hg] 06/07/2020 01:20PM Follow Up 20 Height Weight BMI Blood Pressure 160.02 cm 64.55 kg 25.2 kg/m2 116/68 mm[Hg] 05/03/2020 02:45PM Follow Up 30 Height Weight BMI Blood Pressure 160.02 cm 65.3 kg 25.5 kg/m2 111/70 mm[Hg] 04/18/2020 09:40AM CPE 40 Height Weight BMI Blood Pressure 160.02 cm 62.78 kg 24.5 kg/m2 100/62 mm[Hg] 04/10/2020 12:40PM Follow Up 20 Height Weight BMI Blood Pressure 160.02 cm 62.37 kg 24.4 kg/m2 102/72 mm[Hg] 04/05/2020 01:00PM Acute 20 Height Weight BMI Blood Pressure 160.02 cm 62.14 kg 24.3 kg/m2 120/80 mm[Hg] 02/09/2020 03:00PM Acute 30 Height Weight BMI Blood Pressure 160.02 cm 62.6 kg 24.4 kg/m2 93/66 mm[Hg] 01/24/2020 03:30PM Follow Up 30 Height Weight BMI Blood Pressure 160.02 cm 60.7 kg 23.7 kg/m2 123/69 mm[Hg] 12/01/2019 03:30PM Follow Up 30 Height Weight BMI Blood Pressure 160.02 cm 61.1 kg 23.9 kg/m2 118/67 mm[Hg] 10/25/2019 04:20PM Follow Up 20 Height Weight BMI Blood Pressure 160.02 cm 63.37 kg 24.7 kg/m2 102/64 mm[Hg] 09/27/2019 02:45PM Follow Up 30 Height Weight BMI Blood Pressure 160.02 cm 60.9 kg 23.8 kg/m2 101/71 mm[Hg] 09/16/2019 01:00PM HME 30 Height Weight BMI Blood Pressure 160.02 cm 59.42 kg 23.2 kg/m2 108/68 mm[Hg] 06/23/2019 03:30PM Follow Up 30 Height Weight BMI Blood Pressure 160.02 cm 61.2 kg 23.9 kg/m2 110/69 mm[Hg] 05/19/2019 01:30PM Follow Up 30 Height Weight BMI Blood Pressure 160.02 cm 62 kg 24.2 kg/m2 120/60 mm[Hg] 05/11/2019 11:20AM Acute 20 Height Weight BMI Blood Pressure 160.02 cm 61.89 kg 24.2 kg/m2 110/72 mm[Hg] 04/22/2019 10:00AM Follow Up 20 Height Weight BMI Blood Pressure 160.02 cm 61.92 kg 24.2 kg/m2 116/68 mm[Hg] 03/29/2019 03:00PM Acute 30 Height Weight BMI Blood Pressure 160.02 cm 60.8 kg 23.7 kg/m2 118/70 mm[Hg] 01/18/2019 03:00PM Follow Up 30 Height Weight BMI Blood Pressure 160.02 cm 62.9 kg 24.6 kg/m2 122/70 mm[Hg] 01/13/2019 02:40PM Follow Up 20 Height Weight BMI Blood Pressure 160.02 cm 62.31 kg 24.3 kg/m2 120/70 mm[Hg] 01/07/2019 10:00AM Follow Up 20 Height Weight BMI Blood Pressure 160.02 cm 61.73 kg 24.1 kg/m2 104/64 mm[Hg] 10/13/2018 02:20PM Any 40 Height Weight BMI Blood Pressure 160.02 cm 58.63 kg 22.9 kg/m2 100/62 mm[Hg] 09/14/2018 01:00PM HME 30 Height Weight BMI Blood Pressure 160.02 cm 56.7 kg 22.1 kg/m2 100/68 mm[Hg] 08/31/2018 12:20PM Follow Up 20 Height Weight BMI Blood Pressure 160.02 cm 58.29 kg 22.8 kg/m2 118/70 mm[Hg] 06/08/2018 11:30AM Follow Up 30 Height Weight BMI Blood Pressure 160.02 cm 58 kg 22.7 kg/m2 90/50 mm[Hg] 05/29/2018 01:30PM Follow Up 30 Height Weight BMI Blood Pressure 160.02 cm 57.63 kg 22.5 kg/m2 110/60 mm[Hg] 05/27/2018 02:20PM Follow Up 40 Height Weight BMI Blood Pressure 160.02 cm 57.63 kg 22.5 kg/m2 102/62 mm[Hg] 04/28/2018 11:00AM Follow Up 30 Height Weight BMI Blood Pressure 160.02 cm 58.6 kg 22.9 kg/m2 108/70 mm[Hg] 04/15/2018 02:00PM Follow Up 30 Height Weight BMI Blood Pressure 160.02 cm 59.3 kg 23.2 kg/m2 120/60 mm[Hg] 04/02/2018 08:30AM Follow Up 30 Height Weight BMI Blood Pressure 160.02 cm 58.3 kg 22.8 kg/m2 90/50 mm[Hg] 02/25/2018 02:00PM Follow Up 40 Height Weight BMI Blood Pressure 160.02 cm 59.96 kg 23.4 kg/m2 94/56 mm[Hg] 11/12/2017 Height Weight Blood Pressure 160.02 cm 61.69 kg 110/68 mm[Hg] 11/05/2017 Height Weight Blood Pressure 160.02 cm 60.51 kg 122/78 mm[Hg] 10/30/2017 Height Weight Blood Pressure 160.02 cm 60.33 kg 120/70 mm[Hg] 10/02/2017 Height Weight 160.02 cm 59.42 kg 10/02/2017 Blood Pressure 90/60 mm[Hg] 09/11/2017 Blood Pressure 96/62 mm[Hg] 09/11/2017 Height Weight 160.02 cm 60.01 kg 08/29/2017 Blood Pressure 110/60 mm[Hg] 08/29/2017 Weight 58.51 kg 08/15/2017 Weight Blood Pressure 57.06 kg 108/76 mm[Hg] 08/01/2017 Height Weight Blood Pressure 160.02 cm 57.78 kg 100/60 mm[Hg] 07/25/2017 Height Weight Blood Pressure 160.02 cm 57.2 kg 110/58 mm[Hg] 07/04/2017 Weight 56.81 kg 07/04/2017 Blood Pressure 102/60 mm[Hg] 07/03/2017 Weight Blood Pressure 56.93 kg 98/66 mm[Hg] 06/05/2017 Weight Blood Pressure 57.38 kg 100/60 mm[Hg] 05/06/2017 Weight 59.53 kg 05/06/2017 Blood Pressure 110/64 mm[Hg] 04/23/2017 Weight Blood Pressure 58.51 kg 106/78 mm[Hg] 04/10/2017 Height Weight 160.02 cm 58.29 kg 04/10/2017 Blood Pressure 110/50 mm[Hg] 03/13/2017 Blood Pressure 112/60 mm[Hg] 03/13/2017 Weight 59.42 kg 02/12/2017 Blood Pressure 110/60 mm[Hg] 01/15/2017 Blood Pressure 100/60 mm[Hg] 01/07/2017 Weight Blood Pressure 57.38 kg 84/60 mm[Hg] 12/12/2016 Weight Blood Pressure 57.61 kg 90/60 mm[Hg] 12/05/2016 Weight Blood Pressure 57.61 kg 120/70 mm[Hg] 11/21/2016 Height Weight Blood Pressure 160.02 cm 57.06 kg 100/64 mm[Hg] 11/13/2016 Blood Pressure 120/80 mm[Hg] 11/13/2016 Height Weight 160.02 cm 56.25 kg 10/16/2016 Height Weight Blood Pressure 160.02 cm 55.51 kg 118/62 mm[Hg] 10/01/2016 Blood Pressure 110/60 mm[Hg] 09/26/2016 Height Weight Blood Pressure 160.02 cm 52.68 kg 120/60 mm[Hg] 09/12/2016 Height Weight 160.02 cm 53.07 kg 09/12/2016 Blood Pressure 110/60 mm[Hg] 09/06/2016 Height Weight 160.02 cm 53.48 kg 09/06/2016 Blood Pressure 96/62 mm[Hg] 08/08/2016 Height Weight 160.02 cm 53.07 kg 08/08/2016 Blood Pressure 100/50 mm[Hg] 07/17/2016 Height Weight Blood Pressure 160.02 cm 50.97 kg 120/70 mm[Hg] 07/10/2016 Height Weight Blood Pressure 160.02 cm 51.71 kg 108/64 mm[Hg] 06/13/2016 Blood Pressure 90/50 mm[Hg] 06/13/2016 Height Weight 160.02 cm 50.35 kg 05/02/2016 Blood Pressure 100/60 mm[Hg] 05/02/2016 Height Weight 160.02 cm 50.8 kg 04/18/2016 Height Weight 160.02 cm 49.9 kg 04/18/2016 Blood Pressure 110/64 mm[Hg] 04/05/2016 Weight Blood Pressure 48.33 kg 105/60 mm[Hg] 03/15/2016 Blood Pressure 110/58 mm[Hg] 03/15/2016 Height Weight 160.02 cm 48.53 kg 02/01/2016 Weight Blood Pressure 50.35 kg 127/73 mm[Hg] 12/27/2015 Weight Blood Pressure 50.35 kg 110/60 mm[Hg] 11/30/2015 Height Weight Blood Pressure 160.02 cm 51.26 kg 108/66 mm[Hg] 11/29/2015 Weight 51.26 kg 11/29/2015 Blood Pressure 110/62 mm[Hg] 11/16/2015 Weight Blood Pressure 49.05 kg 94/62 mm[Hg] 11/01/2015 Height Weight Blood Pressure 160.02 cm 50.8 kg 110/60 mm[Hg] 10/05/2015 Height Weight Blood Pressure 160.02 cm 50.8 kg 117/60 mm[Hg] 09/27/2015 Weight 50.8 kg 09/27/2015 Blood Pressure 110/60 mm[Hg] 09/06/2015 Blood Pressure 96/58 mm[Hg] 09/06/2015 Weight 50.62 kg 08/23/2015 Weight Blood Pressure 50.35 kg 129/81 mm[Hg] 07/28/2015 Weight Blood Pressure 50.03 kg 102/62 mm[Hg] 07/11/2015 Blood Pressure 115/72 mm[Hg] 07/11/2015 Height Weight 160.02 cm 50.35 kg 06/13/2015 Height Weight Blood Pressure 159.38 cm 51.8 kg 110/70 mm[Hg] 06/07/2015 Blood Pressure 110/58 mm[Hg] 06/07/2015 Weight 51.71 kg 05/10/2015 Weight 51.48 kg 05/10/2015 Blood Pressure 110/60 mm[Hg] 04/27/2015 Height Weight Blood Pressure 160.02 cm 53.89 kg 100/70 mm[Hg] 04/12/2015 Height Weight Blood Pressure 160.02 cm 53.52 kg 130/80 mm[Hg] 03/14/2015 Weight 57.61 kg 03/14/2015 Blood Pressure 120/60 mm[Hg] 02/09/2015 Blood Pressure 98/60 mm[Hg] 02/09/2015 Height Weight 160.02 cm 59.42 kg 01/25/2015 Blood Pressure 112/64 mm[Hg] 01/25/2015 Height Weight 160.02 cm 60.55 kg 01/11/2015 Blood Pressure 100/62 mm[Hg] 01/11/2015 Weight 62.14 kg 12/21/2014 Blood Pressure 98/69 mm[Hg] 12/21/2014 Weight 63.14 kg 12/15/2014 Height Weight 160.02 cm 64.18 kg 12/15/2014 Blood Pressure 124/62 mm[Hg] 12/13/2014 Weight Blood Pressure 64.73 kg 112/70 mm[Hg] 11/16/2014 Blood Pressure 118/70 mm[Hg] 11/16/2014 Height Weight 160.02 cm 68.04 kg 10/11/2014 Blood Pressure 100/50 mm[Hg] 10/11/2014 Height Weight 160.02 cm 68.49 kg 09/21/2014 Blood Pressure 118/70 mm[Hg] 09/21/2014 Height Weight 160.02 cm 67.59 kg 08/24/2014 Weight Blood Pressure 68.95 kg 110/60 mm[Hg] 07/20/2014 Blood Pressure 122/70 mm[Hg] 06/22/2014 Weight Blood Pressure 71.67 kg 118/70 mm[Hg] 06/01/2014 Height Weight Blood Pressure 160.02 cm 70.31 kg 118/72 mm[Hg] 05/19/2014 Blood Pressure 116/60 mm[Hg] 04/21/2014 Blood Pressure (1) 110/68 mm[Hg] (2) 110/70 mm[Hg] 04/21/2014 Height Weight 160.02 cm 68.49 kg 04/13/2014 Height Weight Blood Pressure 160.02 cm 69.4 kg 110/56 mm[Hg] 03/25/2014 Blood Pressure 110/58 mm[Hg] 03/25/2014 Height Weight 160.02 cm 70.76 kg 03/02/2014 Height Weight Blood Pressure 160.02 cm 70.76 kg 118/62 mm[Hg] 02/23/2014 Height Weight Blood Pressure 160.02 cm 68.95 kg 116/80 mm[Hg] 02/09/2014 Weight Blood Pressure 69.26 kg 108/70 mm[Hg] 01/19/2014 Blood Pressure 118/62 mm[Hg] 01/19/2014 Height Weight 160.02 cm 69.85 kg 12/24/2013 Weight Blood Pressure 71.26 kg 98/64 mm[Hg] 12/22/2013 Height Weight Blood Pressure 160.02 cm 71.21 kg 100/60 mm[Hg] 11/24/2013 Height Weight Blood Pressure 160.02 cm 72.57 kg 116/60 mm[Hg] 11/23/2013 Blood Pressure 134/74 mm[Hg] 11/23/2013 Weight 72.8 kg 10/27/2013 Blood Pressure 118/60 mm[Hg] 10/27/2013 Height Weight 160.02 cm 73.94 kg 10/08/2013 Blood Pressure 122/68 mm[Hg] 10/08/2013 Height Weight 160.02 cm 73.94 kg 09/23/2013 Height Weight Blood Pressure 160.02 cm 76.2 kg 120/60 mm[Hg] 09/23/2013 Blood Pressure 120/60 mm[Hg] 09/16/2013 Weight Blood Pressure 74.39 kg 100/60 mm[Hg] 08/25/2013 Height Weight 160.02 cm 74.39 kg 08/25/2013 Blood Pressure 144/70 mm[Hg] 07/28/2013 Height Weight Blood Pressure 160.02 cm 75.75 kg 100/60 mm[Hg] 06/23/2013 Height Weight Blood Pressure 160.02 cm 77.11 kg 120/62 mm[Hg] 06/09/2013 Blood Pressure 116/68 mm[Hg] 06/09/2013 Height Weight 160.02 cm 75.75 kg 06/02/2013 Blood Pressure 122/72 mm[Hg] 06/02/2013 Height Weight 160.02 cm 74.39 kg 05/25/2013 Blood Pressure 142/80 mm[Hg] 05/25/2013 Height Weight 158.12 cm 74.53 kg 05/20/2013 Height Weight 160.02 cm 74.39 kg 05/20/2013 Blood Pressure 120/70 mm[Hg] 05/06/2013 Blood Pressure 130/84 mm[Hg] 05/06/2013 Height Weight 160.02 cm 72.12 kg 04/22/2013 Height Weight 160.02 cm 72.12 kg 04/22/2013 Blood Pressure 116/60 mm[Hg] 03/22/2013 Blood Pressure 110/64 mm[Hg] 03/22/2013 Height Weight 160.02 cm 74.39 kg 03/09/2013 Height Weight Blood Pressure 160.02 cm 72.57 kg 126/70 mm[Hg] 02/10/2013 Blood Pressure 120/60 mm[Hg] 02/10/2013 Height Weight 160.02 cm 74.84 kg 01/27/2013 Height Weight Blood Pressure 160.02 cm 74.84 kg 122/70 mm[Hg] 01/06/2013 Height Weight Blood Pressure 160.02 cm 77.56 kg 118/68 mm[Hg] 12/09/2012 Height Weight 160.02 cm 77.79 kg 12/09/2012 Blood Pressure 110/70 mm[Hg] 11/18/2012 Blood Pressure 140/64 mm[Hg] 11/18/2012 Height Weight 160.02 cm 77.79 kg 11/11/2012 Height Weight Blood Pressure 160.02 cm 76.66 kg 116/62 mm[Hg] 11/04/2012 Height Weight Blood Pressure 160.02 cm 76.66 kg 118/62 mm[Hg] 10/14/2012 Blood Pressure 118/68 mm[Hg] 10/14/2012 Height Weight 160.02 cm 78.47 kg 09/28/2012 Height Weight Blood Pressure 160.02 cm 76.2 kg 126/72 mm[Hg] 09/15/2012 Weight Blood Pressure 76.88 kg 118/78 mm[Hg] 09/09/2012 Height Weight Blood Pressure 160.02 cm 76.75 kg 122/70 mm[Hg] 08/19/2012 Height Weight Blood Pressure 160.02 cm 76.75 kg 114/68 mm[Hg] 08/05/2012 Height Weight 160.02 cm 75.98 kg 08/05/2012 Blood Pressure 140/80 mm[Hg] 07/01/2012 Blood Pressure 120/64 mm[Hg] 07/01/2012 Height Weight 160.02 cm 73.71 kg 05/19/2012 Blood Pressure 126/82 mm[Hg] 05/19/2012 Weight 71.62 kg 03/18/2012 Height Weight 158.12 cm 72.12 kg 03/18/2012 Blood Pressure 110/64 mm[Hg] 02/21/2012 Height Weight Blood Pressure 158.12 cm 70.22 kg 120/80 mm[Hg] 10/09/2011 Height Weight Blood Pressure 158.12 cm 71.44 kg 118/76 mm[Hg] 09/16/2011 Weight Blood Pressure 69.67 kg 120/72 mm[Hg] 09/05/2011 Weight Blood Pressure 69.67 kg 116/80 mm[Hg] 08/13/2011 Blood Pressure 116/76 mm[Hg] 08/13/2011 Height Weight 158.12 cm 67.99 kg 07/18/2011 Weight Blood Pressure 67.18 kg 130/62 mm[Hg] 06/27/2011 Height Weight Blood Pressure 158.12 cm 66.72 kg 110/70 mm[Hg] 06/11/2011 Height Weight 158.12 cm 67.49 kg 06/11/2011 Blood Pressure 118/62 mm[Hg] 04/26/2011 Height Weight Blood Pressure 158.12 cm 65.59 kg 132/82 mm[Hg] 03/14/2011 Height Weight 165.1 cm 67.59 kg 03/14/2011 Blood Pressure 110/62 mm[Hg] 02/26/2011 Blood Pressure 124/64 mm[Hg] 02/26/2011 Weight 68.49 kg 11/27/2010 Blood Pressure 136/82 mm[Hg] 11/20/2010 Weight 67.72 kg 11/20/2010 Blood Pressure 116/70 mm[Hg] 08/29/2010 Weight 70.49 kg 08/29/2010 Blood Pressure 120/74 mm[Hg] 08/08/2010 Weight Blood Pressure 71.03 kg 122/62 mm[Hg] 07/20/2010 Weight Blood Pressure 71.67 kg 118/72 mm[Hg] 05/29/2010 Weight Blood Pressure 75.52 kg 118/78 mm[Hg] 03/05/2010 Weight Blood Pressure 75.52 kg 118/70 mm[Hg] 01/03/2010 Weight Blood Pressure 74.39 kg 142/70 mm[Hg] 09/12/2009 Weight Blood Pressure 72.57 kg 120/70 mm[Hg] 08/29/2009 Weight 71.67 kg 08/29/2009 Blood Pressure 118/70 mm[Hg] 06/09/2009 Blood Pressure 112/64 mm[Hg] 06/09/2009 Weight 69.4 kg 08/02/2008 Weight Blood Pressure 68.04 kg 120/64 mm[Hg] 05/10/2008 Weight Blood Pressure 66.22 kg 124/72 mm[Hg] 12/24/2007 Weight Blood Pressure 61.23 kg 118/80 mm[Hg] 12/04/2007 Weight Blood Pressure 60.33 kg 110/66 mm[Hg] 09/23/2007 Weight Blood Pressure 63.05 kg 108/56 mm[Hg] 09/07/2007 Blood Pressure 110/70 mm[Hg] 09/07/2007 Weight 62.6 kg 07/07/2007 Blood Pressure 104/60 mm[Hg] 07/07/2007 Weight Blood Pressure 59.42 kg 136/68 mm[Hg] 05/18/2007 Weight Blood Pressure 60.33 kg 136/70 mm[Hg] 02/20/2007 Weight 58.51 kg 02/20/2007 Blood Pressure 102/60 mm[Hg] 11/14/2006 Weight Blood Pressure 59.87 kg 116/68 mm[Hg] 07/01/2006 Height Weight 165.1 cm 61.23 kg 07/01/2006 Blood Pressure 102/60 mm[Hg] 05/26/2006 Weight Blood Pressure 62.6 kg 90/60 mm[Hg] 12/16/2005 Weight Blood Pressure 66.22 kg 108/72 mm[Hg] 07/01/2005 Blood Pressure 100/60 mm[Hg] 07/01/2005 Height Weight 165.1 cm 62.6 kg 05/07/2005 Weight Blood Pressure 60.33 kg 122/64 mm[Hg] 03/14/2005 Weight Blood Pressure 58.51 kg 104/58 mm[Hg] 01/23/2005 Weight Blood Pressure 59.87 kg 92/52 mm[Hg] 12/17/2004 Weight Blood Pressure 60.78 kg 102/64 mm[Hg] 09/26/2004 Blood Pressure 104/60 mm[Hg] 09/26/2004 Weight 59.87 kg 07/06/2004 Height Weight Blood Pressure 165.1 cm 56.7 kg 100/60 mm[Hg]
--- OUTSIDE RECORDS SUMMARY | 2021-05-07 03:29 | XMS_ITS | Encounter Summary ---
:1970 Author Care Team Providers Name Role Phone Dagmar Fleming MD Primary Care Provider [phone] Lara Owens MD [employer] Out Stitcher [phone] Terrence Rehman MD Radiation Oncologist [phone] Jose Juan Post MD Medical Oncologist [phone] Reason for Visit None recorded. Assessment and Plan 1. Type 2 diabetes mellitus with out complication Secondary to prednisone. Sugar s have ranged between 130s - 220s. A1c 7%. She is switching her soda to nonsugar Decrease sugar in coffee Transitioning from carbs to proteins. Decreasing soda and full strength gatora de. Increasing metformin to 1000 mg twice pe r day; will update us this week - if not effective or side effects, we'll get Jardiance. ? metformin 1,000 mg tablet 2. Primary malignant neoplasm of lung She is going to follow up with Dr Post on Friday regarding progression of her lung cancer. She is clear that she would want to purs ue any treatments available at this point. Greater than 50% of this 20 minute appoi ntment was spent in counseling. Discussion Note: None recorded.Patient educational handouts: No information available. Plan of Care Reminders Provider Appointments Cpe 40 Dagmar Dorsey rris 05/09/2021 MD Lonnie 12:40PM ? Follow up Lara Ramsey hristine 30 06/08/2021 MD Roman 1:30PM ? [facility] 30 Clementina Owen ae 09/18/2021 TELLO [place] 1:00PM Lab None ? ? recorded. Referral None ? ? recorded. Procedures None ? ? recorded. Surgeries None ? ? recorded. Imaging None ? ? recorded. Medications Name Start Date ? ? albuterol sulfate 2.5 mg/3 mL (0.083 %) solution for n ebulization 01/22/2021 3 mL every 4 hours by inhalation route as needed. bupropion HCl XL 150 mg 24 hr tablet, extended release ? Take 1 tablet every day by oral route. cyclobenzaprine 10 mg tablet 01/22/2021 Take 1 tablet 3 times a day by oral route as needed f or 10 days. EpiPen 2-Murray 0.3 mg/0.3 mL injection, auto-injector Take 1 auto by injection route as directed. Fasenra 30 mg/mL subcutaneous syringe ? Inject 1 mL (30 mg) sc every 28 days fo r 3 months then 1 mL (30 mg) sc every 8 weeks fluoxetine 10 mg capsule ? Take 1 capsule every day by oral route in the morning . fluoxetine 40 mg capsule 01/22/2021 1 capsule every day by oral route in the evening. fluticasone propionate 50 mcg/actuation nasal spray,lópez spension 01/22/2021 [place] 1 spray twice a day by intranasal route as need ed. folic acid 1 mg tablet 01/22/2021 Take 1 tablet every day by oral route for 90 days. Fosamax 70 mg tablet 01/22/2021 Take 1 tablet every week by oral route for 90 days. gabapentin 100 mg capsule ? Take 1 capsule every day by oral route at noon for 90 days. gabapentin 600 mg tablet 01/22/2021 Take 1 tablet every day by oral route in the evening for 90 days. ipratropium 0.5 mg-albuterol 3 mg (2.5 mg base)/3 mL n ebulization soln 01/22/2021 Inhale 3 mL 4 times a day by nebulization route for 3 0 days. Iron (ferrous sulfate) 325 mg (65 mg iron) tablet 02/2021 Take 1 tablet every day by oral route. Jardiance 25 mg tablet ? take one tablet PO daily loratadine 10 mg tablet 01/22/2021 Take 1 tablet every day by oral route for 90 days. lorazepam 0.5 mg tablet ? Take 1 tablet twice a day by oral route as needed. metformin 1,000 mg tablet ? Take 1 tablet twice a day by oral route. metoprolol succinate ER 50 mg tablet,extended release 24 hr 04/19/2021 Take 2 tablets every day by oral route. nystatin 100,000 unit/mL oral suspension 01/22/2021 Take 5 mL 4 times a day by oral route as needed. omeprazole 40 mg capsule,delayed release ? Take 1 capsule every day by oral route for 90 days. ondansetron 4 mg disintegrating tablet 01/22/2021 Place 2 tablets twice a day by translingual route as needed. prednisone 20 mg tablet ? Take 2 tablets (40 mg) by mouth daily Prempro 0.45 mg-1.5 mg tablet 01/22/2021 1 tablet every day by oral route. ProAir HFA 90 mcg/actuation aerosol inhaler 01/22/2021 2 puffs every 3 hours by inhalation route as needed. prochlorperazine maleate 10 mg tablet 01/22/2021 1 tablet as needed by oral route for 7 days. Stiolto Respimat 2.5 mcg-2.5 mcg/actuation solution fo r inhalation 01/22/2021 2 inhalations every day by inhalation route. sumatriptan 50 mg tablet 01/22/2021 1 tablet as needed by oral route as directed for 28 days. Symbicort 160 mcg-4.5 mcg/actuation HFA aerosol inhale r ? Inhale 2 puffs twice a day by inhalation route. theophylline ER 400 mg tablet,extended release 24 hr 0 01/22/2021 1 tablet everyday in the morning and 1 tablet at mid- afternoon trazodone 100 mg tablet ? Take 2 tablets every day by oral route at bedtime. Xolair 150 mg subcutaneous solution 01/22/2021 Inject 150 mg every month by subcutaneous route. Medications Administered None recorded. Vitals Height Weight BMI Blood Pressure 5 ft 3 in 155 lbs 27.5 kg/m2 106/70 mm[Hg] Results Lab Results None recorded. Allergies Code Code System Name Reaction Severity Onset Adhesive Tape Itching ? ? NKDA ? ? ? Problems Name Status Onset Date Source ? 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 Gastroesophageal Reflux Disease without Active 06/07/20 20 ? Esophagitis Type 2 Diabetes Mellitus Active 03/09/2021 ? Osteoporosis Active 03/09/2021 ? Bacterial Intestinal Infectious Disease Active ? History Blood Coagulation Disorder Active ? Histo ry Nicotine Dependence Active ? History Depressive Disorder Active ? History Insomnia Active ? History Restless Legs Active ? History Migraine Active ? History Xanthoma of Eyelid Active ? History M?Ni?Re's Disease Active ? History Allergic Rhinitis Active ? History Acute Exacerbation of Chronic Active ? Hi story Obstructive Airways Disease Asthma Active ? History Chronic Obstructive Lung Disease Active ? History Rotator Cuff Shoulder Syndrome and Active ? History Allied Disorders Lack of Energy Active ? History Abnormal Weight Loss Active ? History Chest Pain Active ? History Disorder of Skin And/or Subcutaneous Active ? History Tissue Therapeutic Drug Monitoring Assay Active ? History Menopause Present Active ? History Procedures Date Name Performed by ? 12/30/2019 Port Vascular Access Insertion Informati on not available Notes: Done at [facility] 06/04/2018 Bronchoscopy (Surg) Information not avai lable 04/21/2018 Bronchoscopy Information not avai lable 03/17/2013 Endometrial Ablation Information not duy ilable 08/18/1997 Tubal Ligation Information not avai lable 01/10/2021 XR, Chest, [facility] (Internal) [address] [place] [address] (Work Place) Vaccine List Vaccine Type COVID-19, mRNA, LNP-S, PF, 100 mcg/0.5 m L dose 11/09/2020?100 mcg 12/08/2020?0.5 mL 04/27/2021?0.5 mL DT (pediatric) 08/21/2020?0.5 mL influenza, injectable, quadrivalent, pre servative free 07/24/2017?0.5 mL 05/27/2018?0.5 mL 06/23/2019 influenza, seasonal, injectable 06/05/2020 influenza, seasonal, injectable, preserv ative free 06/09/2009?0.5 mL 05/29/2010?0.5 mL 06/11/2011?0.5 mL 06/03/2012?0.5 mL 07/14/2013?0.5 mL 06/28/2014?0.5 mL 05/10/2015?0.5 mL 06/13/2016?0.5 mL novel [id number], all formulation s 08/29/2009?0.5 mL pneumococcal polysaccharide [id number] 05/30/2016?0.5 mL Td (adult), adsorbed 08/18/1996 07/01/2006 Tdap 08/17/2007 varicella Social History Tobacco Smoking Status Former Smoker Notes: 08/2019 Have you been exposed to N chemicals or toxins? Exposure to Asbestos N Are you currently employed? N Have you used IV drugs? N Are you blind or do you have Y Notes: w ears corrected difficulty seeing? lenses What is your code status? 0 How much tobacco do you chew? none What was the date of your most 04/27/2021 recent tobacco screening? Do you have an advanced N directive? How many years have you smoked 30 Notes: 1 ppd tobacco? What is your exercise level? Occasional Notes: w alks dogs Exposure to Silica N Animal exposure? Y Notes: 3 dogs, 3 cats Which of your hands is dominant? Right Live alone or with others? with others Notes: Reyna es with sister and her boyfriend, and h er sisters son. What is your level of alcohol Occasional Notes: 1 drink monthly consumption? Do you have any pets? Y Notes: 3 dogs, 3 cats Tobacco Use Former smoker Notes: quit 2019, smoked 32 years 1 ppd Education 12 Language Difficulties No What is your current pack years? 30ormorepackyears Notes : former smoker Are you deaf or do you have Y Notes: bi lateral hearing serious difficulty hearing? aides Current Method of Control Notes: Menopause Hard of hearing or deaf in one or Y Note s: suppose to wear both ears? hearing aids. no cur rently What is your level of caffeine Occasional Notes: 1 cup coffee and consumption? occasional soda Drug Use N Currently N What is your occupation? unemployed Family History Relation Problem Onset Age of Age Notes Mother Lymphoma finding (No N/A (No Notes) Information) Mother Chronic obstructive (No N/A (No Note s) lung disease Information) Mother Diabetes mellitus (No N/A (No Notes) Information) Mother Heart disease (No N/A (No Notes) Information) Sister Family history of (No N/A uterine cancer Information) Functional Status Are you blind or do you Yes have difficulty seeing?? Are you deaf or do you Yes have serious difficulty hearing? ? Past Encounters 02/05/2021 Type 2 Diabetes Mellitus without Complic ation; Primary Malignant Neoplasm of Lung Dagmar Fleming MD: [address] [place] [phone], Ph. History of Present Illness Note: <p>[facility] discharge 01/16/2021-01/22/2021 primary malignant neoplasm of lung, severe COPD, candidiasis of mouth, pneumonia</p><p>chest XR pneumonia.</p><p>
</p><p>follow DIabetic diet</p><p>
</p><p>continue prednisone 20mg till seen 02/05/2021.</p><p>
</p><p>using O2 (4 L) about half theday O2 is 95 to 98% while on O2, about 94% when off, had dropped to 88% off of O2 over weekend. Not coughing or bringing up phlegm. Using nebulizer (ipratropium.albuterol) every 4 hours in addition to inhalers and theophylline.</p><p>
</p><p>O2 RA 94 % in office, dry cough, shortness og=f breath on exertion. completed prednisone.</p><p>BS running 170-300.&l t;/p><p>
</p><p>Breathing has been ok; did have to take an extra 10 mgof pred</p><p>she completed her course of doxycycline</p><p>
</p><p>Weight is down 3 lbs</p><p>
</p><p>Using supplemental oxygen every day</p><p>Using nebs every 4 hrs</p> Review of Systems ? Notes: <p>Gen: No fevers, chills, s weats. Weight stable.</p><p>HEENT: Denies vision changes. Denies hearing schaefer ges. Denies dysphagia. Denies odynophagia.</p><p>CV: Denie s chest pain. Denies chest pressure. Denies heart palpitations.</p><p>RESP: De nies cough. Denies shortness of breath. Denies wheezing.</p><p>GI: Denies a bdominal pain. Denies diarrhea. Denies constipation. Denies melena. Denies hematochezia.</p><p>: Denies urinary incontinence. Denies dysuria .</p><p>MSK: Denies joint pain.</p><p>Skin: Denies rash. Denies skin lesions.</ p><p>Neuro: Denies headaches. Denies imbalance. Denies numbness and tingling in extremities.</p><p>Psych: Denies depression. Denies anxiety.</p> Physical Exam ? Notes: <p>Gen: Well appearing. No a pparent distress.</p><p>HEENT: EOMI, PERRLA. </p><p>CV: RRR, no murmurs, rubs, gallops.</p><p>RESP: wheezing in all lung morrison</p><p>ABD: nondistend ed</p><p>EXT: no peripheral edema</p><p>SKIN: no rashes. no skin lesions</p>< p>Neuro: CN II- XII grossly intact. Alert and oriented x 3</p><p>Psych: Appropriate affect and mood.</p>
--- OUTSIDE RECORDS SUMMARY | 2021-05-07 03:29 | XMS_ITS | Encounter Summary ---
:1970 Author Care Team Providers Name Role Phone Dagmar Fleming MD Primary Care Provider [phone] Lara Owens MD [place] [phone] Terrence Rehman MD Radiation Oncologist [phone] Jose Juan Post MD Medical Oncologist [phone] Reason for Visit diabetes Assessment and Plan 1. Type 2 diabetes mellitus with out complication Secondary to prednisone. Sugar s have ranged between 130s - 220s. A1c 7%. Drinking one soda Using Splenda in her coffee She is switching her soda to nonsugar Transitioning from carbs to proteins. Decreasing soda and full strength gatora de. Taking metformin 1000 mg twice a day. She is not feeling confident with her ab ility to decrease sugar; she is stuck with prednisone. Adding Jardiance 25 mg once daily. Greater than 50% of this 20 minute appoi ntment was spent in counseling. ? Jardiance 25 mg tablet ? HbA1c (hemoglobin A1c), bl ood ? CMP, serum or plasma ? CBC w/ auto diff 2. Screening for cardiovascular system disease ? lipid panel, serum Discussion Note: None recorded.Patient educational handouts: No information available. Plan of Care Reminders Provider Appointments Cpe 40 Dagmar Dorsey rris 05/09/2021 MD Lonnie 12:40PM ? Follow up Lara hodges 30 06/08/2021 MD Roman 1:30PM ? Hme 30 Clementina Owen ae 09/18/2021 TELLO [place] 1:00PM Lab HbA1C [place] (Hemoglobin a1C), 02/16/2021 Hospital Lab ( Internal) Blood ? CMP, Serum [place] or Plasma 02/16/2021 Hospital Lab (In ternal) ? CBC W/ Auto [place] Diff [facility] Lipid [place] Panel, Serum 02/16/2021 Hospital Lab (In ternal) Referral None ? ? recorded. Procedures None [...] propionate 50 mcg/actuation nasal spray,lópez spension 01/22/2021 [place] 1 spray twice a day by intranasal [...] BMI Blood Pressure 5 ft 3 in 157 lbs 2 oz 27.8 kg/m2 110/70 mm[Hg] Results Lab Results Date Name Specimen Result Interpretation Description Value Range Status Address ? 02/21/2021 Lipid S High Chol 204 50-200 Final [facility] Panel, mg/dL mg/dL Hospital L ab Serum (Internal) : [address] ? ? S High Trig 180 10-150 Final [facility] try mg/dL mg/dL Hospital L ab (Internal) : [address] ? ? S ? Hdl 55 mg/dL 40-60 Final [place] [facility] mg/dL Hospital L ab (Internal) : [address] ? ? S ? Ldl 113 0-130 Final [facility] try mg/dL mg/dL Hospital L ab (Internal) : [address] 02/21/2021 CBC W/ BLD High Wbc 12.2 5.0-10.0 Final [place] Auto Diff 10*3/uL 10*3/uL [facility]pi [facility] Lab (Internal) : [address] ? ? BLD ? Rbc 4.92 4.10-5.30 Final [facility] 10*6/uL 10*6/uL Hospital Lab (Internal) : [address] ? ? BLD ? Hgb 14.9 12.0-16.0 Final [facility] g/dL g/dL Hospital L ab (Internal) : [address] ? ? BLD ? Hct 46.1 % 37.0-47.0 Final [facility] % Hospital L ab (Internal) : [address] ? ? BLD ? Mcv 93.7 fL 80.0-96.0 Final [facility] fL Hospital L ab (Internal) : [address] ? ? BLD ? Mch 30.3 pg 26.0-32.0 Final [facility] pg Hospital L ab (Internal) : [address] ? ? BLD ? Mchc 32.3 31.0-35.0 Final [facility] g/dL g/dL Hospital L ab (Internal) : [address] ? ? BLD ? Rdw 13.1 % 11.5-14.5 Final [facility] % Hospital L ab (Internal) : [address] ? ? BLD ? Plt 255 130-450 Final [place] [facility] 10*3/uL 10*3/uL Hospital Lab (Internal) : [address] 02/21/2021 CMP, S High g/r 184 74-106 Final [facility] Serum or mg/dL mg/dL Hospital Lab Plasma (Internal) : [address] ? ? S ? Bun 14 mg/dL 7-17 Final [place] mg/dL Hospital L [facility] (Internal) : [address] [place] ? ? S ? Crea 0.70 0.52-1.04 Final [place] mg/dL mg/dL Hospital L ab (Internal) : [address] [place] ? ? S ? Ca 9.6 8.4-10.2 Final [place] mg/dL mg/dL Hospital L ab (Internal) : [address] ? ? S Low Na 136 137-145 Final [place] [facility] mmol/L mmol/L Hospital L ab (Internal) : [address] ? ? S ? K 3.5 3.5-5.1 Final [place] mmol/L mmol/L Hospital L ab (Internal) : [address] ? ? S Low Cl 96 98-107 Final [place] mmol/L mmol/L Hospital L ab (Internal) : [address] ? ? S ? Tco2 28.0 22.0-30.0 Final [place] mmol/L mmol/L Hospital L ab (Internal) : [address] ? ? S ? Tp 7.0 g/dL 6.3-8.2 Final [place] g/dL Hospital L ab (Internal) : [address] ? ? S ? Alb 4.0 g/dL 3.5-5.0 Final [place] [facility] g/dL Hospital L ab (Internal) : [address] ? ? S ? Tbil 0.4 0.2-1.3 Final [place] [facility] mg/dL mg/dL Hospital L ab (Internal) : [address] ? ? S Low Alp 48 U/L 50-136 Final [place] [facility] U/L Hospital L ab (Internal) : [address] ? ? S ? Alt 28 U/L 9-52 U/L Final [place] (Sgpt) Hospital L ab (Internal) : [address] ? ? S ? Ast 22 U/L 14-36 U/L Final [place] (Sgot) Hospital L ab (Internal) : [address] 02/21/2021 HbA1C BLD High Ha1C 7.1 % 4.0-6.0 % Final [place] (Hemoglob Hospita [facility] Lab in a1C), (Interna l): Blood [address] Allergies Code Code System Name Reaction Severity [...] Informati on not available Notes: Done at [facility] [place] 06/04/2018 Bronchoscopy (Surg) Information not avai lable 04/21/2018 Bronchoscopy Information not avai lable 03/17/2013 Endometrial Ablation Information not duy ilable 08/18/1997 Tubal Ligation Information not avai lable Vaccine List Vaccine Type COVID-19, mRNA, LNP-S, PF, 100 mcg/0.5 m L dose 11/09/2020?100 mcg 12/08/2020?0.5 mL 04/27/2021?0.5 mL DT (pediatric) 08/21/2020?0.5 mL influenza, injectable, quadrivalent, pre servative free 07/24/2017?0.5 mL 05/27/2018?0.5 mL 06/23/2019 influenza, seasonal, injectable 06/05/2020 influenza, seasonal, injectable, preserv ative free 06/09/2009?0.5 mL 05/29/2010?0.5 mL 06/11/2011?0.5 mL 06/03/2012?0.5 mL 07/14/2013?0.5 mL 06/28/2014?0.5 mL 05/10/2015?0.5 mL 06/13/2016?0.5 mL novel [id number], all formulation s 08/29/2009?0.5 mL pneumococcal polysaccharide [...] have serious difficulty hearing? ? Past Encounters 02/16/2021 Type 2 Diabetes Mellitus without Complic ation; Screening for Cardiovascular System Disease Dagmar Fleming MD: [address] [place] [phone], Ph. 02/05/2021 Type 2 Diabetes Mellitus without Complic ation; Primary Malignant Neoplasm of Lung Dagmar Fleming MD: [address] [place] [phone], Ph. History of Present Illness ? Diabetes F/U Reported By: Patient HPI: Review finger sticks: marissain -[id number], one 83. Context: not taking aspirin daily; Metformin 500 mg daily. Associated Symptoms: no headaches, no blurred vision , no numbness of feet, no calluses on feet, dizziness Note: <p>Pt reports taking 2 tabs Trazodone at bedtime.</p><p>
</p><p>Taking metformin 1000 mg twice a day</p><p>Sugars are starting to improve</p&gt ;<p>Still drinking soda</p><p>Prednisone 20 mg daily</p><p>Weight is stable</p><p>No baked goods</p> Review of Systems ? Notes: <p>Gen: No fevers, chills, s weats. Weight stable.</p><p>HEENT: Denies vision changes. Denies hearing schaefer ges. Denies dysphagia. Denies odynophagia.</p><p>CV: Denie s chest pain. Denies chest pressure. Denies heart palpitations.</p><p>RESP: en dorses cough. endorses shortness of breath. Denies wheezing.</p><p>GI: Denies a [...] PERRLA. </p><p>CV: RRR, no murmurs, rubs, gallops.</p><p>RESP: diffuse wheezing</p><p>ABD: nondi stended</p><p>EXT: no peripheral edema</p><p>SKIN: no rashes. no skin lesions</ p><p>Neuro: CN II- XII grossly intact. Alert and oriented x 3</p><p>Psych: Appropriate affect and mood.</p>
[2021-05-07] MEDS: Normal Saline Flush 10 ML SYR IVP (12:47)
[2021-05-07 12:55] LABS: Abs Immature Grans 0.72 10^3/uL (0.0-0.06); HCT 52.1 % (36.0-46.0); HGB 16.4 g/dL (11.2-15.7); MCH 30.4 pg (27.0-33.0); MCHC 31.5 % (32.0-36.0); MCV 96.7 fL (80-95); MPV 10.5 fL (8.0-11.0); Nucleated RBC 0 %; Platelet Count 247 10^3/uL (130-400); RBC 5.39 10^6/uL (3.93-5.22); RDW 14.4 % (11.7-14.6); RDW-SD 50.6 fL; WBC 18.47 10^3/uL (4.4-10.8)
[2021-05-07 13:19] LABS: Absolute Eosinophil Count 0.18 10^3/uL (0.0-0.7); Absolute Lymphocyte Count 2.77 10^3/uL (1.2-3.4); Absolute Monocyte Count 0.18 10^3/uL (0.1-0.8); Absolute Neutrophil Count 14.96 10^3/uL (1.2-6.7); Atypical Lymphocytes % 5; Bands % 0; Diff Comment Manual Differential; Metamyelocytes % 1; Myelocytes % 1; RBC Morphology Normal
[2021-05-07 13:21] LABS: ALT 31 U/L (14-59); AST 10 U/L (15-37); Albumin 3.8 g/dL (3.4-5.0); Alkaline Phosphatase 49 U/L (46-116); Anion Gap 10.7 mmol/L (3-11); BUN 19 mg/dL (7-18); Bilirubin, Total 0.3 mg/dL (0.2-1.0); CO2 27.3 mmol/L (21.0-32.0); CREATININE 1.1 mg/dL (0.55-1.02); Calcium 9.7 mg/dL (8.5-10.1); Chloride 103 mmol/L (98-107); Estimated GFR 52.79 (mL/min/1.73m2); Glucose 225 mg/dL (74-106); Sodium 141 mmol/L (136-145); TSH 1.05 uIU/mL (0.36-3.74); Total Protein 7.5 g/dL (6.4-8.2)
== END 2021-05-17 23:59 | disposition home or self-care (01) ==
LOC: INF 03:26
PROVIDERS: PCP Internal Medicine; Visit Provider Internal Medicine Medical Oncology
DX: C34.11 Malignant neoplasm of upper lobe, right bronchus or lung (principal); Z79.899 Other long term (current) drug therapy; Z45.2 Encounter for adjustment and management of vascular access device
CPT/HCPCS: 36591; 80053; 84439; 84443; 85025

== ENCOUNTER 2021-05-28 13:22 | Outpatient (RCR) | payer MEDICAID, SELFPAY ==
[2021-05-28] MEDS: Normal Saline Flush 10 ML SYR 30 ML IVP (13:36)
[2021-05-28 13:45] LABS: Abs Immature Grans 0.34 10^3/uL (0.0-0.06); HCT 49.7 % (36.0-46.0); HGB 15.8 g/dL (11.2-15.7); MCH 30.5 pg (27.0-33.0); MCHC 31.8 % (32.0-36.0); MCV 95.9 fL (80-95); MPV 10.5 fL (8.0-11.0); Nucleated RBC 0 %; Platelet Count 248 10^3/uL (130-400); RBC 5.18 10^6/uL (3.93-5.22); RDW 13.5 % (11.7-14.6); RDW-SD 48.2 fL; WBC 14.56 10^3/uL (4.4-10.8)
[2021-05-28 14:10] LABS: ALT 23 U/L (14-59); AST 12 U/L (15-37); Absolute Lymphocyte Count 4.22 10^3/uL (1.2-3.4); Absolute Monocyte Count 0.87 10^3/uL (0.1-0.8); Absolute Neutrophil Count 9.46 10^3/uL (1.2-6.7); Albumin 3.7 g/dL (3.4-5.0); Alkaline Phosphatase 45 U/L (46-116); Anion Gap 8.8 mmol/L (3-11); Atypical Lymphocytes % 10; BUN 13 mg/dL (7-18); Bands % 0; Bilirubin, Total 0.3 mg/dL (0.2-1.0); CO2 29.2 mmol/L (21.0-32.0); CREATININE 1.2 mg/dL (0.55-1.02); Chloride 102 mmol/L (98-107); Diff Comment Manual Differential; Estimated GFR 47.75 (mL/min/1.73m2); FREE T4 0.99 ng/dL (0.76-1.46); Glucose 151 mg/dL (74-106); Potassium 3.2 mmol/L (3.5-5.1); RBC Morphology Normal; Sodium 140 mmol/L (136-145); TSH 0.99 uIU/mL (0.36-3.74); Total Protein 6.9 g/dL (6.4-8.2)
== END 2021-06-17 23:59 | disposition home or self-care (01) ==
LOC: INF 13:22
PROVIDERS: PCP Internal Medicine; Visit Provider Internal Medicine Medical Oncology
DX: C34.11 Malignant neoplasm of upper lobe, right bronchus or lung (principal); Z79.899 Other long term (current) drug therapy; Z45.2 Encounter for adjustment and management of vascular access device
CPT/HCPCS: 36591; 80053; 84439; 84443; 85025

== ENCOUNTER 2021-07-16 01:35 | Outpatient (RCR) | payer MEDICAID, SELFPAY ==
[2021-06-18] MEDS: Normal Saline Flush 10 ML SYR IVP (13:17)
[2021-06-18 13:29] LABS: Abs Immature Grans 0.39 10^3/uL (0.0-0.06); Absolute Lymphocyte Count 3.29 10^3/uL (1.2-3.4); Basophils % 0.3; HCT 49.4 % (36.0-46.0); HGB 15.7 g/dL (11.2-15.7); Immature Grans % 1.9; Lymphocytes % 16.3; MCH 30.3 pg (27.0-33.0); MCHC 31.8 % (32.0-36.0); MCV 95.2 fL (80-95); MPV 10.7 fL (8.0-11.0); Monocytes % 9.3; Neutrophils % 72.2; Nucleated RBC 0 %; Platelet Count 241 10^3/uL (130-400); RBC 5.19 10^6/uL (3.93-5.22); RDW 13.6 % (11.7-14.6); RDW-SD 47.7 fL; WBC 20.21 10^3/uL (4.4-10.8)
[2021-06-18 13:35] LABS: Absolute Basophil Count 0.06 10^3/uL (0.0-0.2); Absolute Monocyte Count 1.88 10^3/uL (0.1-0.8); Absolute Neutrophil Count 14.59 10^3/uL (1.2-6.7)
[2021-06-18 14:00] LABS: ALT 22 U/L (14-59); AST 8 U/L (15-37); Albumin 3.6 g/dL (3.4-5.0); Alkaline Phosphatase 45 U/L (46-116); BUN 13 mg/dL (7-18); Bilirubin, Total 0.3 mg/dL (0.2-1.0); Calcium 9.2 mg/dL (8.5-10.1); Chloride 100 mmol/L (98-107); Estimated GFR 58.69 (mL/min/1.73m2); FREE T4 0.99 ng/dL (0.76-1.46); Glucose 174 mg/dL (74-106); Potassium 3.3 mmol/L (3.5-5.1); Sodium 140 mmol/L (136-145); TSH 1.56 uIU/mL (0.36-3.74); Total Protein 7.2 g/dL (6.4-8.2)
[2021-07-16] MEDS: Normal Saline Flush 10 ML SYR IVP (13:26)
[2021-07-16 13:39] LABS: Abs Immature Grans 0.66 10^3/uL (0.0-0.06); Absolute Basophil Count 0.11 10^3/uL (0.0-0.2); Absolute Lymphocyte Count 1.34 10^3/uL (1.2-3.4); Basophils % 0.6; HCT 52.9 % (36.0-46.0); HGB 16.4 g/dL (11.2-15.7); Immature Grans % 3.6; Lymphocytes % 7.2; MCH 29.7 pg (27.0-33.0); MCV 95.7 fL (80-95); MPV 10.5 fL (8.0-11.0); Monocytes % 5.4; Neutrophils % 83.2; Nucleated RBC 0 %; Platelet Count 283 10^3/uL (130-400); RBC 5.53 10^6/uL (3.93-5.22); RDW 13.8 % (11.7-14.6); RDW-SD 49.1 fL; WBC 18.56 10^3/uL (4.4-10.8)
[2021-07-16 13:44] LABS: Absolute Neutrophil Count 15.44 10^3/uL (1.2-6.7)
[2021-07-16 13:57] LABS: Diff Comment Diff Reviewed; RBC Morphology Normal
[2021-07-16 14:03] LABS: ALT 15 U/L (14-59); AST 13 U/L (15-37); Albumin 3.7 g/dL (3.4-5.0); Alkaline Phosphatase 50 U/L (46-116); Anion Gap 10.1 mmol/L (3-11); BUN 25 mg/dL (7-18); Bilirubin, Total 0.5 mg/dL (0.2-1.0); CO2 28.9 mmol/L (21.0-32.0); CREATININE 1.2 mg/dL (0.55-1.02); Calcium 9.4 mg/dL (8.5-10.1); Chloride 100 mmol/L (98-107); Estimated GFR 47.55 (mL/min/1.73m2); FREE T4 1.03 ng/dL (0.76-1.46); Glucose 168 mg/dL (74-106); Potassium 4.2 mmol/L (3.5-5.1); Sodium 139 mmol/L (136-145); TSH 1.91 uIU/mL (0.36-3.74); Total Protein 7.4 g/dL (6.4-8.2)
== END 2021-07-17 23:59 | disposition home or self-care (01) ==
LOC: INF 01:35
PROVIDERS: PCP Internal Medicine; Visit Provider Internal Medicine Medical Oncology
DX: C34.11 Malignant neoplasm of upper lobe, right bronchus or lung (principal); Z79.899 Other long term (current) drug therapy; Z45.2 Encounter for adjustment and management of vascular access device
CPT/HCPCS: 36591; 80053; 84439; 84443; 85025

== ENCOUNTER 2021-08-13 03:35 | Outpatient (RCR) | payer MEDICAID, SELFPAY ==
[2021-08-13] MEDS: Normal Saline Flush 10 ML SYR IVP (13:28)
[2021-08-13 13:50] LABS: Abs Immature Grans 0.42 10^3/uL (0.0-0.06); Absolute Basophil Count 0.08 10^3/uL (0.0-0.2); Absolute Lymphocyte Count 2.17 10^3/uL (1.2-3.4); Absolute Monocyte Count 1.64 10^3/uL (0.1-0.8); Basophils % 0.6; HGB 16.3 g/dL (11.2-15.7); Immature Grans % 3.1; Lymphocytes % 15.9; MCH 30.2 pg (27.0-33.0); MCHC 31.3 % (32.0-36.0); MCV 96.3 fL (80-95); MPV 10.7 fL (8.0-11.0); Neutrophils % 68.4; Nucleated RBC 0 %; Platelet Count 281 10^3/uL (130-400); RDW 13.6 % (11.7-14.6); RDW-SD 48.1 fL; WBC 13.67 10^3/uL (4.4-10.8)
[2021-08-13 13:58] LABS: Absolute Neutrophil Count 9.35 10^3/uL (1.2-6.7)
[2021-08-13 14:23] LABS: ALT 18 U/L (14-59); AST 12 U/L (15-37); Albumin 3.6 g/dL (3.4-5.0); Alkaline Phosphatase 43 U/L (46-116); Anion Gap 8.8 mmol/L (3-11); BUN 12 mg/dL (7-18); Bilirubin, Total 0.5 mg/dL (0.2-1.0); CO2 26.2 mmol/L (21.0-32.0); CREATININE 1.1 mg/dL (0.55-1.02); Calcium 8.8 mg/dL (8.5-10.1); Chloride 103 mmol/L (98-107); Estimated GFR 52.58 (mL/min/1.73m2); FREE T4 1.02 ng/dL (0.76-1.46); Glucose 133 mg/dL (74-106); Potassium 4.5 mmol/L (3.5-5.1); Sodium 138 mmol/L (136-145); TSH 2.57 uIU/mL (0.36-3.74); Total Protein 7.2 g/dL (6.4-8.2)
== END 2021-08-17 23:59 | disposition home or self-care (01) ==
LOC: INF 03:35
PROVIDERS: PCP Internal Medicine; Visit Provider Internal Medicine Medical Oncology
DX: C34.11 Malignant neoplasm of upper lobe, right bronchus or lung (principal); Z79.899 Other long term (current) drug therapy; Z45.2 Encounter for adjustment and management of vascular access device
CPT/HCPCS: 36591; 80053; 84439; 84443; 85025

== ENCOUNTER 2021-09-10 02:49 | Outpatient (RCR) | payer MEDICAID, SELFPAY ==
[2021-09-10] MEDS: Normal Saline Flush 10 ML SYR IVP (13:23)
[2021-09-10 13:37] LABS: Abs Immature Grans 0.46 10^3/uL (0.0-0.06); Absolute Lymphocyte Count 1.37 10^3/uL (1.2-3.4); Absolute Monocyte Count 0.75 10^3/uL (0.1-0.8); Basophils % 0.4; HCT 51.3 % (36.0-46.0); HGB 16.1 g/dL (11.2-15.7); Immature Grans % 2.5; Lymphocytes % 7.5; MCHC 31.4 % (32.0-36.0); MCV 95.7 fL (80-95); MPV 10.8 fL (8.0-11.0); Monocytes % 4.1; Neutrophils % 85.5; Nucleated RBC 0 %; Platelet Count 269 10^3/uL (130-400); RBC 5.36 10^6/uL (3.93-5.22); RDW 13.5 % (11.7-14.6); RDW-SD 47.8 fL; WBC 18.31 10^3/uL (4.4-10.8)
[2021-09-10 13:39] LABS: Absolute Basophil Count 0.07 10^3/uL (0.0-0.2); Absolute Neutrophil Count 15.66 10^3/uL (1.2-6.7)
[2021-09-10 14:00] LABS: ALT 17 U/L (14-59); AST 9 U/L (15-37); Albumin 3.6 g/dL (3.4-5.0); Alkaline Phosphatase 45 U/L (46-116); Anion Gap 9.2 mmol/L (3-11); BUN 15 mg/dL (7-18); Bilirubin, Total 0.3 mg/dL (0.2-1.0); CO2 27.8 mmol/L (21.0-32.0); Calcium 8.9 mg/dL (8.5-10.1); Chloride 101 mmol/L (98-107); Estimated GFR 58.69 (mL/min/1.73m2); FREE T4 1.06 ng/dL (0.76-1.46); Glucose 138 mg/dL (74-106); Potassium 4.2 mmol/L (3.5-5.1); Sodium 138 mmol/L (136-145); TSH 1.72 uIU/mL (0.36-3.74); Total Protein 7.1 g/dL (6.4-8.2)
== END 2021-09-17 23:59 | disposition home or self-care (01) ==
LOC: INF 02:49
PROVIDERS: PCP Internal Medicine; Visit Provider Internal Medicine Medical Oncology
DX: C34.11 Malignant neoplasm of upper lobe, right bronchus or lung (principal); Z79.899 Other long term (current) drug therapy; Z45.2 Encounter for adjustment and management of vascular access device
CPT/HCPCS: 36591; 80053; 84439; 84443; 85025

== ENCOUNTER 2021-10-03 02:12 | Outpatient (RCR) | payer MEDICAID, SELFPAY ==
[2021-10-03] MEDS: Normal Saline Flush 10 ML SYR IVP (13:14)
[2021-10-03 13:27] LABS: HCT 52.6 % (36.0-46.0); HGB 16.5 g/dL (11.2-15.7); MCH 30.1 pg (27.0-33.0); MCHC 31.4 % (32.0-36.0); MPV 10.7 fL (8.0-11.0); Nucleated RBC 0 %; Platelet Count 333 10^3/uL (130-400); RBC 5.48 10^6/uL (3.93-5.22); RDW 13.6 % (11.7-14.6); RDW-SD 48.1 fL; WBC 21.98 10^3/uL (4.4-10.8)
[2021-10-03 13:49] LABS: ALT 21 U/L (14-59); AST 10 U/L (15-37); Albumin 3.8 g/dL (3.4-5.0); Alkaline Phosphatase 44 U/L (46-116); Anion Gap 12.9 mmol/L (3-11); BUN 19 mg/dL (7-18); Bilirubin, Total 0.3 mg/dL (0.2-1.0); CO2 25.1 mmol/L (21.0-32.0); CREATININE 1.2 mg/dL (0.55-1.02); Calcium 9.2 mg/dL (8.5-10.1); Chloride 100 mmol/L (98-107); Estimated GFR 47.55 (mL/min/1.73m2); Glucose 233 mg/dL (74-106); Potassium 4.3 mmol/L (3.5-5.1); Sodium 138 mmol/L (136-145); TSH 0.59 uIU/mL (0.36-3.74); Total Protein 7.3 g/dL (6.4-8.2)
[2021-10-03 14:00] LABS: Absolute Lymphocyte Count 1.76 10^3/uL (1.2-3.4); Absolute Monocyte Count 0.22 10^3/uL (0.1-0.8); Atypical Lymphocytes % 6; Bands % 1; Diff Comment Manual Differential; RBC Morphology Normal
== END 2021-10-15 23:59 | disposition home or self-care (01) ==
LOC: INF 02:12
PROVIDERS: PCP Internal Medicine; Visit Provider Internal Medicine Medical Oncology
DX: C34.11 Malignant neoplasm of upper lobe, right bronchus or lung (principal); Z79.899 Other long term (current) drug therapy; Z45.2 Encounter for adjustment and management of vascular access device
CPT/HCPCS: 36591; 80053; 84439; 84443; 85025

== ENCOUNTER 2021-11-12 02:24 | Outpatient (RCR) | payer MEDICAID, SELFPAY ==
[2021-10-22] MEDS: Normal Saline Flush 10 ML SYR IVP (13:11)
[2021-10-22 13:25] LABS: Abs Immature Grans 0.37 10^3/uL (0.0-0.06); Absolute Basophil Count 0.06 10^3/uL (0.0-0.2); Absolute Monocyte Count 0.45 10^3/uL (0.1-0.8); Absolute Neutrophil Count 13.68 10^3/uL (1.2-6.7); Basophils % 0.4; HCT 51.1 % (36.0-46.0); Immature Grans % 2.4; Lymphocytes % 5.8; MCH 30.1 pg (27.0-33.0); MCHC 31.3 % (32.0-36.0); MCV 96.1 fL (80-95); MPV 11.1 fL (8.0-11.0); Monocytes % 2.9; Neutrophils % 88.5; Nucleated RBC 0 %; Platelet Count 228 10^3/uL (130-400); RBC 5.32 10^6/uL (3.93-5.22); RDW-SD 49.6 fL; WBC 15.46 10^3/uL (4.4-10.8)
[2021-10-22 13:54] LABS: ALT 19 U/L (14-59); AST 9 U/L (15-37); Albumin 3.7 g/dL (3.4-5.0); Alkaline Phosphatase 43 U/L (46-116); Anion Gap 11.7 mmol/L (3-11); BUN 15 mg/dL (7-18); Bilirubin, Total 0.3 mg/dL (0.2-1.0); CO2 24.3 mmol/L (21.0-32.0); Calcium 9.4 mg/dL (8.5-10.1); Chloride 104 mmol/L (98-107); Estimated GFR 58.69 (mL/min/1.73m2); FREE T4 0.88 ng/dL (0.76-1.46); Glucose 199 mg/dL (74-106); Potassium 4.9 mmol/L (3.5-5.1); Sodium 140 mmol/L (136-145); TSH 1.76 uIU/mL (0.36-3.74); Total Protein 7.3 g/dL (6.4-8.2)
[2021-11-12] MEDS: Normal Saline Flush 10 ML SYR IVP (12:00)
[2021-11-12 12:06] LABS: Abs Immature Grans 0.47 10^3/uL (0.0-0.06); Absolute Basophil Count 0.11 10^3/uL (0.0-0.2); Basophils % 0.7; HCT 48.9 % (36.0-46.0); HGB 15.4 g/dL (11.2-15.7); Immature Grans % 3.1; Lymphocytes % 7.3; MCH 30.2 pg (27.0-33.0); MCHC 31.5 % (32.0-36.0); MCV 95.9 fL (80-95); MPV 10.6 fL (8.0-11.0); Monocytes % 3.4; Neutrophils % 85.5; Nucleated RBC 0 %; Platelet Count 289 10^3/uL (130-400); RDW 13.9 % (11.7-14.6); RDW-SD 49.3 fL; WBC 15.15 10^3/uL (4.4-10.8)
[2021-11-12 12:10] LABS: Absolute Lymphocyte Count 1.11 10^3/uL (1.2-3.4); Absolute Monocyte Count 0.52 10^3/uL (0.1-0.8); Absolute Neutrophil Count 12.95 10^3/uL (1.2-6.7)
[2021-11-12 12:31] LABS: ALT 24 U/L (14-59); AST 10 U/L (15-37); Albumin 3.7 g/dL (3.4-5.0); Alkaline Phosphatase 46 U/L (46-116); Anion Gap 7.4 mmol/L (3-11); BUN 13 mg/dL (7-18); Bilirubin, Total 0.3 mg/dL (0.2-1.0); CO2 28.6 mmol/L (21.0-32.0); Calcium 9.7 mg/dL (8.5-10.1); Chloride 105 mmol/L (98-107); Estimated GFR 58.69 (mL/min/1.73m2); FREE T4 0.98 ng/dL (0.76-1.46); Glucose 164 mg/dL (74-106); Potassium 4.3 mmol/L (3.5-5.1); Sodium 141 mmol/L (136-145); Total Protein 7.3 g/dL (6.4-8.2)
== END 2021-11-15 23:59 | disposition home or self-care (01) ==
LOC: INF 02:24
PROVIDERS: Nurse Practitioner Adult Health; PCP Internal Medicine; Visit Provider Internal Medicine Medical Oncology
DX: C34.91 Malignant neoplasm of unspecified part of right bronchus or lung (principal); Z45.2 Encounter for adjustment and management of vascular access device
CPT/HCPCS: 36591; 80053; 84439; 84443; 85025

== ENCOUNTER 2021-12-03 02:28 | Outpatient (RCR) | payer MEDICAID, SELFPAY ==
[2021-12-03] MEDS: Normal Saline Flush 10 ML SYR IVP (10:04)
[2021-12-03 10:21] LABS: Abs Immature Grans 0.36 10^3/uL (0.0-0.06); Absolute Lymphocyte Count 1.74 10^3/uL (1.2-3.4); Absolute Monocyte Count 1.38 10^3/uL (0.1-0.8); Basophils % 0.6; HCT 50.2 % (36.0-46.0); HGB 15.7 g/dL (11.2-15.7); Immature Grans % 2.2; Lymphocytes % 10.6; MCH 30.1 pg (27.0-33.0); MCHC 31.3 % (32.0-36.0); MCV 96.4 fL (80-95); MPV 10.7 fL (8.0-11.0); Monocytes % 8.4; Neutrophils % 78.2; Platelet Count 235 10^3/uL (130-400); RBC 5.21 10^6/uL (3.93-5.22); RDW 13.7 % (11.7-14.6); RDW-SD 48.8 fL; WBC 16.46 10^3/uL (4.4-10.8)
[2021-12-03 10:23] LABS: Absolute Neutrophil Count 12.87 10^3/uL (1.2-6.7)
[2021-12-03 10:41] LABS: ALT 22 U/L (14-59); AST 9 U/L (15-37); Albumin 3.5 g/dL (3.4-5.0); Alkaline Phosphatase 40 U/L (46-116); Anion Gap 4.9 mmol/L (3-11); BUN 15 mg/dL (7-18); Bilirubin, Total 0.4 mg/dL (0.2-1.0); CO2 33.1 mmol/L (21.0-32.0); CREATININE 0.9 mg/dL (0.55-1.02); Calcium 9.5 mg/dL (8.5-10.1); Chloride 103 mmol/L (98-107); Glucose 138 mg/dL (74-106); Potassium 4.2 mmol/L (3.5-5.1); Sodium 141 mmol/L (136-145); TSH 1.94 uIU/mL (0.36-3.74); Total Protein 6.9 g/dL (6.4-8.2)
== END 2021-12-15 23:59 | disposition home or self-care (01) ==
LOC: INF 02:28
PROVIDERS: Nurse Practitioner Adult Health; PCP Internal Medicine; Visit Provider Internal Medicine Medical Oncology
DX: Z45.2 Encounter for adjustment and management of vascular access device (principal); C34.91 Malignant neoplasm of unspecified part of right bronchus or lung
CPT/HCPCS: 36591; 80053; 84439; 84443; 85025

== ENCOUNTER 2021-12-24 11:06 | Outpatient (RCR) | payer MEDICAID, SELFPAY ==
[2021-12-24 11:14] LABS: Abs Immature Grans 0.62 10^3/uL (0.0-0.06); Absolute Monocyte Count 0.73 10^3/uL (0.1-0.8); Basophils % 0.6; HCT 50.3 % (36.0-46.0); HGB 15.8 g/dL (11.2-15.7); Immature Grans % 4.3; Lymphocytes % 7.7; MCHC 31.4 % (32.0-36.0); MCV 96 fL (80-95); Monocytes % 5.1; Neutrophils % 82.3; Platelet Count 254 10^3/uL (130-400); RBC 5.26 10^6/uL (3.93-5.22); RDW 13.7 % (11.7-14.6); RDW-SD 48.4 fL; WBC 14.26 10^3/uL (4.4-10.8)
[2021-12-24] MEDS: Normal Saline Flush 10 ML SYR IVP (11:14)
[2021-12-24 11:16] LABS: Absolute Basophil Count 0.09 10^3/uL (0.0-0.2); Absolute Neutrophil Count 11.74 10^3/uL (1.2-6.7)
[2021-12-24 11:34] LABS: Diff Comment Diff Reviewed; RBC Morphology Normal
[2021-12-24 11:40] LABS: ALT 23 U/L (14-59); AST 5 U/L (15-37); Albumin 3.6 g/dL (3.4-5.0); Alkaline Phosphatase 44 U/L (46-116); Anion Gap 7.7 mmol/L (3-11); BUN 16 mg/dL (7-18); Bilirubin, Total 0.3 mg/dL (0.2-1.0); CO2 29.3 mmol/L (21.0-32.0); CREATININE 0.9 mg/dL (0.55-1.02); Calcium 9.3 mg/dL (8.5-10.1); Chloride 103 mmol/L (98-107); FREE T4 0.82 ng/dL (0.76-1.46); Glucose 164 mg/dL (74-106); Potassium 4.4 mmol/L (3.5-5.1); Sodium 140 mmol/L (136-145); TSH 0.87 uIU/mL (0.36-3.74); Total Protein 7.1 g/dL (6.4-8.2)
== END 2022-01-15 23:59 | disposition home or self-care (01) ==
LOC: INF 11:06
PROVIDERS: PCP Internal Medicine; Visit Provider Internal Medicine Medical Oncology
DX: Z45.2 Encounter for adjustment and management of vascular access device (principal); C34.91 Malignant neoplasm of unspecified part of right bronchus or lung
CPT/HCPCS: 36591; 80053; 84439; 84443; 85025

== ENCOUNTER 2022-02-11 03:09 | Outpatient (RCR) | payer MEDICAID, SELFPAY ==
[2022-01-21] MEDS: Normal Saline Flush 10 ML SYR IVP (10:06)
[2022-01-21 10:12] LABS: Abs Immature Grans 0.63 10^3/uL (0.0-0.06); Absolute Monocyte Count 1.91 10^3/uL (0.1-0.8); Basophils % 0.5; HCT 49.2 % (36.0-46.0); Immature Grans % 3.1; Lymphocytes % 12.1; MCH 31.1 pg (27.0-33.0); MCHC 32.5 % (32.0-36.0); MCV 96 fL (80-95); MPV 10.4 fL (8.0-11.0); Monocytes % 9.5; Neutrophils % 74.8; Platelet Count 245 10^3/uL (130-400); RBC 5.14 10^6/uL (3.93-5.22); RDW 14.7 % (11.7-14.6); RDW-SD 51.3 fL; WBC 20.13 10^3/uL (4.4-10.8)
[2022-01-21 10:14] LABS: Absolute Lymphocyte Count 2.44 10^3/uL (1.2-3.4); Absolute Neutrophil Count 15.06 10^3/uL (1.2-6.7)
[2022-01-21 10:27] LABS: Diff Comment Diff Reviewed; RBC Morphology Normal
[2022-01-21 10:47] LABS: ALT 29 U/L (14-59); AST 6 U/L (15-37); Albumin 3.6 g/dL (3.4-5.0); Alkaline Phosphatase 48 U/L (46-116); Anion Gap 9.9 mmol/L (3-11); BUN 23 mg/dL (7-18); Bilirubin, Total 0.4 mg/dL (0.2-1.0); CO2 29.1 mmol/L (21.0-32.0); CREATININE 0.9 mg/dL (0.55-1.02); Chloride 104 mmol/L (98-107); FREE T4 0.92 ng/dL (0.76-1.46); Glucose 189 mg/dL (74-106); Potassium 4.6 mmol/L (3.5-5.1); Sodium 143 mmol/L (136-145); TSH 2.61 uIU/mL (0.36-3.74); Total Protein 6.9 g/dL (6.4-8.2)
[2022-02-11 10:14] LABS: HCT 46.9 % (36.0-46.0); HGB 15.5 g/dL (11.2-15.7); MCH 30.9 pg (27.0-33.0); MCV 93 fL (80-95); MPV 10.9 fL (8.0-11.0); Platelet Count 195 10^3/uL (130-400); RBC 5.02 10^6/uL (3.93-5.22); RDW 14.8 % (11.7-14.6); RDW-SD 50.8 fL; WBC 23.84 10^3/uL (4.4-10.8)
[2022-02-11 10:38] LABS: ALT 33 U/L (14-59); AST 6 U/L (15-37); Albumin 3.2 g/dL (3.4-5.0); Alkaline Phosphatase 54 U/L (46-116); Anion Gap 9.4 mmol/L (3-11); BUN 15 mg/dL (7-18); Bilirubin, Total 0.3 mg/dL (0.2-1.0); CO2 28.6 mmol/L (21.0-32.0); Chloride 101 mmol/L (98-107); Estimated GFR 58.69 (mL/min/1.73m2); FREE T4 0.96 ng/dL (0.76-1.46); Glucose 204 mg/dL (74-106); Potassium 4.1 mmol/L (3.5-5.1); Sodium 139 mmol/L (136-145); TSH 1.63 uIU/mL (0.36-3.74); Total Protein 6.6 g/dL (6.4-8.2)
[2022-02-11 10:40] LABS: Absolute Lymphocyte Count 1.67 10^3/uL (1.2-3.4); Absolute Monocyte Count 2.15 10^3/uL (0.1-0.8); Absolute Neutrophil Count 18.36 10^3/uL (1.2-6.7); Bands % 6; Diff Comment Manual Differential; Metamyelocytes % 5; Myelocytes % 2; RBC Morphology Normal
== END 2022-02-14 23:59 | disposition home or self-care (01) ==
LOC: INF 03:09
PROVIDERS: Nurse Practitioner Adult Health; PCP Internal Medicine; Visit Provider Internal Medicine Medical Oncology
DX: Z45.2 Encounter for adjustment and management of vascular access device (principal); C34.91 Malignant neoplasm of unspecified part of right bronchus or lung
CPT/HCPCS: 36591; 80053; 84439; 84443; 85025

== ENCOUNTER 2022-03-04 01:18 | Outpatient (RCR) | payer MEDICAID, SELFPAY ==
[2022-03-04] MEDS: Normal Saline Flush 10 ML SYR IVP (09:31)
[2022-03-04 09:46] LABS: HCT 45.9 % (36.0-46.0); HGB 14.5 g/dL (11.2-15.7); MCH 30.2 pg (27.0-33.0); MCHC 31.6 % (32.0-36.0); MCV 96 fL (80-95); MPV 10.5 fL (8.0-11.0); Platelet Count 295 10^3/uL (130-400); RDW-SD 52.4 fL
[2022-03-04 09:57] LABS: WBC 27.83 10^3/uL (4.4-10.8)
[2022-03-04 10:10] LABS: ALT 20 U/L (14-59); AST 7 U/L (15-37); Albumin 3.1 g/dL (3.4-5.0); Alkaline Phosphatase 65 U/L (46-116); Anion Gap 10.4 mmol/L (3-11); BUN 12 mg/dL (7-18); Bilirubin, Total 0.3 mg/dL (0.2-1.0); CO2 28.6 mmol/L (21.0-32.0); Chloride 101 mmol/L (98-107); Estimated GFR 58.69 (mL/min/1.73m2); FREE T4 0.92 ng/dL (0.76-1.46); Glucose 231 mg/dL (74-106); Potassium 4.3 mmol/L (3.5-5.1); Sodium 140 mmol/L (136-145); TSH 2.07 uIU/mL (0.36-3.74); Total Protein 6.8 g/dL (6.4-8.2)
[2022-03-04 10:12] LABS: Absolute Lymphocyte Count 0.56 10^3/uL (1.2-3.4); Absolute Monocyte Count 1.95 10^3/uL (0.1-0.8); Absolute Neutrophil Count 25.33 10^3/uL (1.2-6.7); Atypical Lymphocytes % 1; Bands % 2; Diff Comment Manual Differential; RBC Morphology Normal
== END 2022-03-17 23:59 | disposition home or self-care (01) ==
LOC: INF 01:18
PROVIDERS: Nurse Practitioner Adult Health; PCP Internal Medicine; Visit Provider Internal Medicine Medical Oncology
DX: Z45.2 Encounter for adjustment and management of vascular access device (principal); C34.91 Malignant neoplasm of unspecified part of right bronchus or lung
CPT/HCPCS: 36591; 80053; 84439; 84443; 85025

== ENCOUNTER 2022-04-01 02:16 | Outpatient (RCR) | payer MEDICAID, SELFPAY ==
[2022-04-01] MEDS: Normal Saline Flush 10 ML SYR IVP (09:56)
[2022-04-01 10:08] LABS: HCT 48.6 % (36.0-46.0); HGB 15.5 g/dL (11.2-15.7); MCHC 31.9 % (32.0-36.0); MCV 94 fL (80-95); MPV 10.9 fL (8.0-11.0); Platelet Count 282 10^3/uL (130-400); RBC 5.16 10^6/uL (3.93-5.22); RDW 15.3 % (11.7-14.6); RDW-SD 52.9 fL
[2022-04-01 10:23] LABS: Atypical Lymphocytes % 1; Bands % 2
[2022-04-01 10:24] LABS: Diff Comment Manual Differential; RBC Morphology Normal
[2022-04-01 10:32] LABS: ALT 26 U/L (14-59); AST 8 U/L (15-37); Albumin 3.4 g/dL (3.4-5.0); Alkaline Phosphatase 58 U/L (46-116); Anion Gap 8.1 mmol/L (3-11); BUN 14 mg/dL (7-18); Bilirubin, Total 0.3 mg/dL (0.2-1.0); CO2 30.9 mmol/L (21.0-32.0); CREATININE 0.9 mg/dL (0.55-1.02); Calcium 9.5 mg/dL (8.5-10.1); Chloride 102 mmol/L (98-107); FREE T4 1.12 ng/dL (0.76-1.46); Glucose 224 mg/dL (74-106); Potassium 4.1 mmol/L (3.5-5.1); Sodium 141 mmol/L (136-145); TSH 2.16 uIU/mL (0.36-3.74); Total Protein 7.2 g/dL (6.4-8.2)
== END 2022-04-17 23:59 | disposition home or self-care (01) ==
LOC: INF 02:16
PROVIDERS: Nurse Practitioner Adult Health; PCP Internal Medicine; Visit Provider Internal Medicine Medical Oncology
DX: Z45.2 Encounter for adjustment and management of vascular access device (principal); C34.91 Malignant neoplasm of unspecified part of right bronchus or lung
CPT/HCPCS: 36591; 80053; 84439; 84443; 85025

== ENCOUNTER 2022-04-29 02:53 | Outpatient (RCR) | payer MEDICAID, SELFPAY ==
[2022-04-29 12:10] LABS: Abs Immature Grans 0.59 10^3/uL (0.0-0.06); HCT 49.3 % (36.0-46.0); HGB 15.5 g/dL (11.2-15.7); MCH 30.1 pg (27.0-33.0); MCHC 31.4 % (32.0-36.0); MCV 96 fL (80-95); MPV 10.7 fL (8.0-11.0); Platelet Count 298 10^3/uL (130-400); RBC 5.15 10^6/uL (3.93-5.22); RDW 15.1 % (11.7-14.6); RDW-SD 53.4 fL; WBC 19.17 10^3/uL (4.4-10.8)
[2022-04-29] MEDS: Normal Saline Flush 10 ML SYR IVP (12:20)
[2022-04-29 12:27] LABS: Absolute Lymphocyte Count 2.68 10^3/uL (1.2-3.4); Absolute Neutrophil Count 14.76 10^3/uL (1.2-6.7); Atypical Lymphocytes % 2; Bands % 0
[2022-04-29 12:28] LABS: Absolute Monocyte Count 0.96 10^3/uL (0.1-0.8); Diff Comment Manual Differential; Metamyelocytes % 3; Myelocytes % 1; RBC Morphology Normal
[2022-04-29 12:48] LABS: ALT 22 U/L (14-59); AST < 5 U/L (15-37); Albumin 3.7 g/dL (3.4-5.0); Alkaline Phosphatase 50 U/L (46-116); Anion Gap 8.1 mmol/L (3-11); BUN 31 mg/dL (7-18); Bilirubin, Total 0.3 mg/dL (0.2-1.0); CO2 29.9 mmol/L (21.0-32.0); CREATININE 0.9 mg/dL (0.55-1.02); Calcium 9.2 mg/dL (8.5-10.1); Chloride 100 mmol/L (98-107); Estimated GFR 77.88 (mL/min/1.73m2); FREE T4 0.84 ng/dL (0.76-1.46); Glucose 204 mg/dL (74-106); Potassium 4.5 mmol/L (3.5-5.1); Sodium 138 mmol/L (136-145); TSH 0.91 uIU/mL (0.36-3.74); Total Protein 7.4 g/dL (6.4-8.2)
== END 2022-05-17 23:59 | disposition home or self-care (01) ==
LOC: INF 02:53
PROVIDERS: Nurse Practitioner Adult Health; PCP Internal Medicine; Visit Provider Internal Medicine Medical Oncology
DX: C34.91 Malignant neoplasm of unspecified part of right bronchus or lung (principal); Z45.2 Encounter for adjustment and management of vascular access device
CPT/HCPCS: 36591; 80053; 84439; 84443; 85025

== ENCOUNTER 2022-05-27 02:14 | Outpatient (RCR) | payer MEDICAID, SELFPAY ==
[2022-05-27] MEDS: Normal Saline Flush 10 ML SYR IVP (12:42)
[2022-05-27 12:51] LABS: Abs Immature Grans 0.91 10^3/uL (0.0-0.06); HCT 49.8 % (36.0-46.0); HGB 15.7 g/dL (11.2-15.7); MCH 29.9 pg (27.0-33.0); MCHC 31.5 % (32.0-36.0); MCV 95 fL (80-95); MPV 10.8 fL (8.0-11.0); Platelet Count 270 10^3/uL (130-400); RBC 5.25 10^6/uL (3.93-5.22); RDW 15.4 % (11.7-14.6); RDW-SD 53.7 fL
[2022-05-27 13:09] LABS: Absolute Neutrophil Count 28.56 10^3/uL (1.2-6.7); Bands % 1
[2022-05-27 13:10] LABS: Absolute Lymphocyte Count 1.27 10^3/uL (1.2-3.4); Atypical Lymphocytes % 1; Diff Comment Manual Differential; RBC Morphology Normal
[2022-05-27 13:13] LABS: WBC 31.73 10^3/uL (4.4-10.8)
[2022-05-27 13:16] LABS: ALT 27 U/L (14-59); AST 10 U/L (15-37); Albumin 3.7 g/dL (3.4-5.0); Alkaline Phosphatase 58 U/L (46-116); Anion Gap 7.6 mmol/L (3-11); BUN 16 mg/dL (7-18); Bilirubin, Total 0.3 mg/dL (0.2-1.0); CO2 30.4 mmol/L (21.0-32.0); CREATININE 0.9 mg/dL (0.55-1.02); Calcium 9.4 mg/dL (8.5-10.1); Chloride 99 mmol/L (98-107); Estimated GFR 77.88 (mL/min/1.73m2); FREE T4 0.82 ng/dL (0.76-1.46); Glucose 243 mg/dL (74-106); Potassium 4.4 mmol/L (3.5-5.1); Sodium 137 mmol/L (136-145); TSH 1.36 uIU/mL (0.36-3.74); Total Protein 7.4 g/dL (6.4-8.2)
== END 2022-06-17 23:59 | disposition home or self-care (01) ==
LOC: INF 02:14
PROVIDERS: Nurse Practitioner Adult Health; PCP Internal Medicine; Visit Provider Internal Medicine Medical Oncology
DX: C34.91 Malignant neoplasm of unspecified part of right bronchus or lung (principal); Z45.2 Encounter for adjustment and management of vascular access device
CPT/HCPCS: 36591; 80053; 84439; 84443; 85025

== ENCOUNTER 2022-06-24 02:25 | Outpatient (RCR) | payer MEDICAID, SELFPAY ==
[2022-06-24] MEDS: Heparin 500 UNITS/5 ML SYRINGE IV (12:53)
[2022-06-24] MEDS: Normal Saline Flush 10 ML SYR IVP (12:53)
[2022-06-24 13:12] LABS: HCT 51.6 % (36.0-46.0); HGB 16.2 g/dL (11.2-15.7); MCH 29.8 pg (27.0-33.0); MCHC 31.4 % (32.0-36.0); MCV 95 fL (80-95); MPV 10.6 fL (8.0-11.0); Platelet Count 281 10^3/uL (130-400); RBC 5.44 10^6/uL (3.93-5.22); RDW 15.7 % (11.7-14.6); RDW-SD 53.5 fL; WBC 18.03 10^3/uL (4.4-10.8)
[2022-06-24 13:21] LABS: Absolute Lymphocyte Count 2.52 10^3/uL (1.2-3.4); Absolute Monocyte Count 1.08 10^3/uL (0.1-0.8); Absolute Neutrophil Count 14.42 10^3/uL (1.2-6.7); Atypical Lymphocytes % 8; Bands % 1; Diff Comment Manual Differential; RBC Morphology Normal
[2022-06-24 13:32] LABS: ALT 28 U/L (14-59); AST 9 U/L (15-37); Albumin 3.8 g/dL (3.4-5.0); Alkaline Phosphatase 60 U/L (46-116); BUN 17 mg/dL (7-18); Bilirubin, Total 0.3 mg/dL (0.2-1.0); CREATININE 0.9 mg/dL (0.55-1.02); Calcium 9.4 mg/dL (8.5-10.1); Chloride 104 mmol/L (98-107); FREE T4 0.94 ng/dL (0.76-1.46); Glucose 225 mg/dL (74-106); Potassium 4.5 mmol/L (3.5-5.1); Sodium 143 mmol/L (136-145); TSH 0.89 uIU/mL (0.36-3.74); Total Protein 7.6 g/dL (6.4-8.2)
== END 2022-07-17 23:59 | disposition home or self-care (01) ==
LOC: INF 02:25
PROVIDERS: PCP Internal Medicine; Visit Provider Internal Medicine Medical Oncology
DX: C34.91 Malignant neoplasm of unspecified part of right bronchus or lung (principal); Z45.2 Encounter for adjustment and management of vascular access device
CPT/HCPCS: 36591; 80053; 84439; 84443; 85025